=== PATIENT | female | born 1970 | race Caucasian/White ===

== ENCOUNTER → 2018-06-05 12:32 | Outpatient (CLI) | payer BC, SELFPAY ==
--- NOTE | 2018-06-05 12:37 | BI_ITS ---
MAMMOGRAPHY - BILATERAL SCREENING 3-D USAMA SYNTHESIS REASON FOR EXAM: Female, 47 years old. Bilateral Screening 3-D tomosynthesis PERTINENT HISTORY: No significant family history. TECHNIQUE: 2-D mammograms and 3-D Usama synthesis of the breast (s) were performed. CAD was performed. COMPARISON: None. FINDINGS: The breast composition is composed of scattered fibroglandular density. Scattered benign calcifications are seen. No dense spiculated masses or suspicious microcalcifications are identified. No architectural distortion is identified. There is no skin thickening or retraction. There has been no significant change since the prior study. BI/SCREENING MAMM (CAD), BILAT IMPRESSION: No mammographic signs of malignancy. Routine yearly mammograms recommended. ASSESSMENT CATEGORY: BIRADS Category 2: Benign. A letter regarding these results will be sent to the patient by the facility within 30 days. FOLLOW UP RECOMMENDATION: Yearly follow up mammogram recommended. (A) Approximately 10% of breast cancers are not detected by mammography. A normal mammogram should not delay biopsy of a clinically suspicious abnormality. Electronically Signed: Heath Ledezma MD at 8:35 EDT , Service support ,
[2018-06-12 11:30] LABS: HPV APTIMA, High Risk Negative (Negative)
== END ==
PROVIDERS: Family Provider Family Medicine; PCP Family Medicine; Visit Provider Nurse Practitioner Women's Health
DX: Z12.4 Encounter for screening for malignant neoplasm of cervix (principal); Z12.31 Encounter for screening mammogram for malignant neoplasm of breast
CPT/HCPCS: 77063; 77067; 88175; G0145

== ENCOUNTER 2018-08-17 10:51 | Day surgery (SDC) | payer BC, SELFPAY ==
--- NOTE | 2018-08-17 05:48 | PCM.HP.STD ---
Problem List (1) Abnormal uterine bleeding Status: Acute History of Present Illness Date of Admission: 08/17/18 The patient is a 47 year old F presents with a history of abnormal uterine bleeding. She has a history of a mirena IUD that expelled and therefore she wants to proceed with an ablation. Past Medical History Medical History: Medical History (Last Updated 06/16/18 @ 11:22 by Angy Sawyer) Menorrhagia with regular cycle N92.0 Depression F32.9 Dysthymic disorder F34.1 Goiter E04.9 Encounter for IUD insertion Onset Date: ~03/19/14 Z30.430 Encounter for IUD removal Onset Date: ~05/2015 Z30.432 Allergies Penicillins Allergy (Verified 08/10/18 10:37) Unknown Home Medications: Ambulatory Orders Medication Instructions Recorded Multivitamins,Therapeutic 1 tab PO DAILY 08/18/16 [Multivitamin] sertraline 50 mg tablet 50 mg PO QDAY 06/05/18 Surgical History: Surgical History (Last Updated 06/16/18 @ 11:21 by Angy Sawyer) Gallbladder & bile duct stone with obstruction Onset Date: ~08/03/13 K80.71 H/O dilation and curettage Onset Date: ~2003 Z98.890 H/O dilation and curettage Onset Date: ~2005 Z98.890 H/O knee surgery Onset Date: ~08/2015 Z98.890 Left Hx laparoscopic cholecystectomy Onset Date: ~08/03/13 Z90.49 with Cholangiography Smoking Status: Never smoker Tobacco Use: Non-smoker Alcohol: None Review of Systems Constitutional: Denies: Fever, Malaise Eyes: Denies: Blurred vision, Vision Change HEENT: Denies: Head Aches, Visual Changes Cardiovascular: Denies: Chest Pain, Palpitations Respiratory: Denies: Cough, Shortness of Breath, Wheezing Gastrointestinal: Denies: Abdominal Pain, Diarrhea, Nausea, Vomiting Genitourinary: Denies: Dysuria, Hematuria Musculoskeletal: Denies: Joint Pain, Muscle pain Skin: Denies: Lesions, Rash Neurological: Denies: Blurred vision, Focal weakness, Headaches Psychiatric: Denies: Anxiety, Depression Endocrine: Denies: Heat/ Cold Intolerance Hematologic/ Lymphatic: Denies: Easy Bruising, Easy Bleeding VTE Information - Inpt Only VTE Present on Admission: No - Physical Exam General: Alert, Oriented x3 HEENT: Atraumatic, Normocephalic Neck: Supple, Trachea Midline, Thyroid Normal Size and Texture Lungs: Normal air movement Cardiovascular: Regular rate Abdomen: Soft, Non Tender, Non-Distended Extremities: No edema Assessment/Plan All Active Problems (Last Updated 06/16/18 @ 11:22 by Angy Sawyer) Abnormal uterine bleeding (Acute) 47 yo with AUB plan d and c hysteroscopy orquidea ablation. discussed surgical risks including risks of anesthesia, infection, bleeding, injury to bowel, bladder or blood vessels, and patient wishes to proceed with surgery.
[2018-08-17 11:23] LABS: Internal QC Validated? YES +Cl - CLEAR BKGD; Pregnancy, Urine Negative Negative
[2018-08-17 11:32] LABS: Hemoglobin 14.4 g/dl (12.0-15.0); Mean Corp Hgb Conc 34.3 g/gl (32-36); Mean Corpuscular Hgb 30.8 pg (27.0-32.0); Mean Corpuscular Volume 89.9 fL (81-99); Mean Platelet Vol. 10.6 fl (6.2-12.0); Platelet Count 285 K/mm3 (150-450); RBC Distribution Width CV 12.4 % (11.6-14.6); RBC Distribution Width SD 40.4 fl (35.1-43.9); Red Blood Count 4.67 M/mm3 (4.2-5.4); White Blood Count 8.4 K/mm3 (4.4-11.0)
[2018-08-17 11:33] LABS: Scan Indicated on CBC? Y/N NO
[2018-08-17 11:49] VITALS: BP 132/90; PULSE 82; RESP 16; TEMP 37.3; O2SAT 97; BMI 35.1
--- NOTE | 2018-08-17 12:30 | ECC_PTH ---
PATIENT: RUDY MYERS LOC: [facility] [place] U#:[id number] AGE/SX: 47/F ROOM: RE08/17/[address]: Dr. America Figueroa MD : 1970 BED: DIS: 08/17/2018 SPEC #: [id number] RECD: 08/18/18 08:30 STATUS: JAYSON JONATHAN #: [id number] SARIAH: 08/17/18 12:[address]: America Figueroa DEPT: SURGICAL PATHOLOGY RECD BY: Glen Reyes ENTERED: 08/18/18 11:55 SP TYPE: ECC OTHR DR: Dr. Geoff Aquino MD Tissues: A - Endocervical B - Fallopian tube Procedures: Surgery Specimen Level II Surgery Specimen Level IV HEADER OPERATION: Dilation and curettage, Joy, bilateral salpingectomy PRE-OP DIAGNOSIS: Abnormal uterine bleeding, desires elective sterilization TISSUE SUBMITTED: A - Endometrial curettings, B - Bilateral fallopian tubes MICROSCOPIC DIAGNOSIS A. Endometrium, curettings: Secretory endometrium with mild disorder. Fragments of superficial endocervical tissue with mild chronic inflammation. B. Right and left fallopian tubes, bilateral salpingectomies: Two complete segments of fallopian tubes with benign paratubal cysts. AM:geri 08/21/18 COMMENT Case has been reviewed in consultation with Dr. Quiñones who concurs with the above diagnosis. IDC:CODY MICROSCOPIC DESCRIPTION Slides are reviewed. GROSS DESCRIPTION A - Received is one container labeled with the patient's name and designated endometrial curettings. The specimen consists of multiple fragments of hemorrhagic soft tissue that in aggregate measure 2.5 x 0.5 x 0.1 cm. The specimen is totally submitted in one cassette. B - Received is one container labeled with the patient's name and designated bilateral fallopian tubes. The specimen consists of bilateral fallopian tubes including fimbrial ends measuring 6.5 cm in length and 0.6 cm in diameter and 6 cm in length and 0.6 cm in diameter. Sections do not reveal any mass lesion. The fallopian tubes are not identified as right or left. Sections reveal unremarkable cut surfaces. Theatrical Performer sections are submitted in two cassettes with each cassette containing one fallopian tube. / CODY:geri 08/18/18 TC:3 CPT: 56221 x2, [id number]
--- NOTE | 2018-08-17 15:13 | PCM.OPRPT ---
Problem List (1) Abnormal uterine bleeding Status: Acute Report of Operation Date of Procedure: 08/17/18 Pre-Operative Diagnosis: aub sterilization Post-Operative Diagnosis: same Surgery/Procedure Performed:: d and c hysteroscopy joy ablation laparoscopic bilateral salpingectomy Description of Surgical Findings:: normal uterus tubes ovaries internet project manager: Blanca Puente Type of Anesthesia:: General Special Medications: none Specimen's removed: tubes emc Drains: none Estimated Blood Loss (mL): 25 Fluids Replaced: crystalloid Description of Procedure: Patient was taken in the operating room and was placed under general anesthesia was prepped and draped in normal sterile fashion in the dorsal lithotomy position. Bladder was drained of clear urine and SCDs were on preoperatively. Uterus was sounded and a uterine manipulator was placed after dilating. Attention was then paid to the abdominal portion of the procedure and the umbilicus was elevated with towel clamps and injected with Marcaine and after a 5 mm incision was made and the Veress needle was entered into the abdomen confirmed to be intra-abdominal with a low opening pressure of less than 5 mmHg. Abdomen was insufflated with CO2 gas and a 5 mm optical trocar was placed under direct visualization. A left lower quadrant 5 mm port and a 5 mm port suprapubically replaced under direct visualization. Uterus was well visualized and bilateral fallopian tubes identified and bilateral tubes were elevated and transecting across the mesosalpinx and the attachment to the uterine corpus bilaterally the tubes were removed without complication. Excellent hemostasis was noted. Fallopian tubes were removed through the lower port sites without complication. Liver and upper abdomen were visualized notably within normal limits and no other gross abnormalities were seen in the abdomen. All instruments removed from the abdomen after gas was desufflated. Port sites were closed with 3-0 Monocryl Steris. A weighted speculum was placed in the vagina and the anterior lip of the cervix was grasped with a single-tooth tenaculum Cervix was progressively dilated to allow passage of a 5 mm hysteroscope. The lining was fully visualized and noted to have no gross abnormalities. Uterine sounded to 9 cm. Curettage was performed and small to moderate amount of tissue was removed, sent to pathology. The Joy device was opened and the cavity length was found to be 6 cm. Device was inserted into the uterus and balloon inflated and device deployed. Integrity of the cavity was confirmed and a 2 minute treatment cycle was completed without complication. All instruments were removed from the vagina and excellent hemostasis was noted. Patient was awoken and taken to recovery in stable condition. Grafts/Implants Used: none - Complications none - Admit VTE Documentation VTE Present on Admission: No
--- NOTE | 2018-08-17 15:18 | DCINST_ITS ---
Discharge Diet: No Restrictions - Increase fluid intake for the next 48 hours. Discharge Activity: Return to Normal Activity, May Drive - when you are no longer taking narcotic pain medications., May Shower, May Take a Tub Bath - in 7 days Additional Activity Instructions:: Ambulate often the next week after surgery. Nothing in the vagina for 5 days. Call your doctor if your incision/area has: Continuous Slow Oozing, Sudden Increased Bleeding, Increased Pain/ Swelling, Increased Redness, Foul Smelling Discharge Call your doctor if you observe: Fever of 101 or Higher Allergies/Adverse Reactions: Allergies Penicillins Allergy (Verified 08/10/18 10:37) Unknown Medications to take at Discharge Multivitamins,Therapeutic [Multivitamin] 1 tab PO DAILY 08/18/16 sertraline 50 mg tablet 50 mg PO QDAY 06/05/18 Naproxen [Naprosyn] 250 - 500 mg PO Q8H PRN PRN #30 tablet 08/17/18 Oxycodone HCl/Acetaminophen [Percocet 5-325] 1 - 2 tablet PO Q4H PRN PRN 7 Days #15 tablet 08/17/18 The following prescriptions were given: Oxycodone HCl/Acetaminophen [Percocet 5-325] 1 - 2 tablet PO Q4H PRN PRN 7 Days #15 tablet PRN Reason: Pain Naproxen [Naprosyn] 250 - 500 mg PO Q8H PRN PRN #30 tablet PRN Reason: MILD PAIN Primary Care Physician: Geoff Aquino MD [Primary Care Provider] - Test Results: Test results from this visit will be discussed in further detail at your follow- up appointment, if applicable. Please Follow Up With: America Figueroa MD - [phone]
[2018-08-17] MEDS: Bupivacaine Mpf 0.5% 30 ML VIAL (15:40)
[2018-08-17 16:13] VITALS: BP 130/72; BP 132/90; PULSE 79; RESP 18; TEMP 36.6; O2SAT 93
[2018-08-17 16:15] VITALS: BP 123/74; BP 132/90; PULSE 77; RESP 18; O2SAT 99
[2018-08-17 16:30] VITALS: BP 121/66; BP 132/90; PULSE 71; RESP 18; O2SAT 97
[2018-08-17 16:47] VITALS: BP 118/85; BP 132/90; PULSE 79; RESP 18; TEMP 37.3; O2SAT 98
[2018-08-17 17:25] VITALS: BP 132/90
== END 2018-08-17 17:27 | disposition home or self-care (01) ==
LOC: SDC 10:52 → AC 10:53
PROVIDERS: Family Provider Family Medicine; PCP Family Medicine; Visit Provider Obstetrics & Gynecology
PROC: 0U5B8ZZ Destruction of Endometrium, Via Natural or Artificial Opening Endoscopic (ICD-10-PCS; CPT 58558; principal; 2018-08-17 12:15)
DX: Z30.2 Encounter for sterilization (principal); N93.8 Other specified abnormal uterine and vaginal bleeding; Z79.899 Other long term (current) drug therapy; F34.1 Dysthymic disorder; E04.9 Nontoxic goiter, unspecified; N83.8 Other noninflammatory disorders of ovary, fallopian tube and broad ligament
CPT/HCPCS: 58563; 58661; 81025; 85027; 86850; 86900; 88302; 88305; J7120; J2405

== ENCOUNTER → 2020-05-07 | Outpatient (CLI) | payer BC, SELFPAY ==
[2018-10-13 09:04] VITALS: BMI 37.1
--- NOTE | 2020-05-07 13:15 | BI_ITS ---
MAMMOGRAPHY - BILATERAL SCREENING 3-D TOMOSYNTHESIS REASON FOR EXAM: Female, 49 years old. Routine screening PERTINENT HISTORY: FAM HX PAT AUNT AGE 65 -- NO SX. TECHNIQUE: 2-D mammograms and 3-D Tomosynthesis of the breast (s) were performed. CAD was performed. COMPARISON: 06/05/2018 FINDINGS: The breast composition is composed of scattered fibroglandular density. Scattered benign calcifications are seen. No dense spiculated masses or suspicious microcalcifications are identified. No architectural distortion is identified. There is no skin thickening or retraction. In the medial aspect of the right breast, deep near the retroglandular fat is a 8mm nodule which was not seen on the previous study. Further evaluation of this area with about views and ultrasound is recommended Left breast shows no suspicious findings or significant interval change BI/SCREEN MAMM (CAD) W/USAMA BILAT IMPRESSION: Additional views and ultrasound of the medial aspect of the right breast recommended. ASSESSMENT CATEGORY: BIRADS Category 0: Incomplete. Need additional imaging evaluation as above. A letter regarding these results will be sent to the patient by the facility within 30 days. FOLLOW UP RECOMMENDATION: Additional imaging recommended as above. (E) Approximately 10% of breast cancers are not detected by mammography. A normal mammogram should not delay biopsy of a clinically suspicious abnormality. Electronically Signed: Heath Ledezma MD at 14:47 EDT , Service support ,
== END | disposition home or self-care (01) ==
LOC: OPBI 13:15
PROVIDERS: PCP Family Medicine; Referring Provider Nurse Practitioner Women's Health; Visit Provider Nurse Practitioner Women's Health
DX: Z12.31 Encounter for screening mammogram for malignant neoplasm of breast (principal)
CPT/HCPCS: 77063; 77067

== ENCOUNTER → 2020-05-15 09:28 | Outpatient (CLI) | payer BC, SELFPAY ==
[2020-05-07 14:36] VITALS: BMI 37.1
--- NOTE | 2020-05-15 09:29 | BI_ITS ---
MAMMOGRAPHY - BILATERAL DIAGNOSTIC REASON FOR EXAM: Female, 49 years old. Abnormal screening mammogram. PERTINENT HISTORY: Aunt with breast cancer. TECHNIQUE: Compression Spot Views of the Right Breast in the Mediolateral Oblique and Craniocaudal views were obtained. CAD: Full Field Digital Mammography with Computer Added Detection was performed. COMPARISON: Comparison is made with prior mammogram dated May 07, 2020 FINDINGS: Breast Composition: There are scattered areas of fibroglandular density. The previously seen 8 mm possible nodular density in the deep medial aspect of the right breast is not seen with certainty. Correlation with ultrasound is recommended. No other significant abnormalities are identified. BI/DIAG MAMM W/CAD, BILAT IMPRESSION: No definite nodule is seen on the compression spot views. Correlation with ultrasound is recommended for further evaluation. ASSESSMENT CATEGORY: BIRADS Category 0: Incomplete. Need additional imaging evaluation. A letter regarding these results will be sent to the patient by the facility within 30 days. Approximately 10% of breast cancers are not detected by mammography. A normal mammogram should not delay biopsy of a clinically suspicious abnormality. Electronically Signed: Donald Freedman, at 10:24 EDT , Service support ,
--- NOTE | 2020-05-15 09:29 | US_ITS ---
STUDY: ULTRASOUND BREAST - RIGHT REASON FOR EXAM: Female, 49 years old. Possible right breast nodule. TECHNIQUE: Axial and longitudinal images of the RIGHT breast were performed with a high resolution ultrasound transducer. # OF IMAGES: 55 COMPARISON: Comparison is made with prior mammogram dated May 15, 2020 and May 07, 2020. FINDINGS: RIGHT Breast: The medial half of the right breast was examined by ultrasound. No solid or cystic mass lesion is seen. There is a moderate degree of fibroglandular tissue. US/Breast Limited Unilateral IMPRESSION: No sonographic abnormality is seen. ASSESSMENT CATEGORY: BIRADS Category 1: Negative. A letter regarding these results will be sent to the patient by the facility within 30 days. Electronically Signed: Donald Freedman, at 10:55 EDT , Service support ,
== END ==
PROVIDERS: PCP Family Medicine; Referring Provider Nurse Practitioner Women's Health; Visit Provider Nurse Practitioner Women's Health
DX: R92.8 Other abnormal and inconclusive findings on diagnostic imaging of breast (principal)
CPT/HCPCS: 76642; 77066

== ENCOUNTER → 2021-05-28 15:36 | Outpatient (CLI) | payer BC, SELFPAY ==
[2021-05-12 13:25] VITALS: BMI 37.3
--- NOTE | 2021-05-28 15:38 | BI_ITS ---
MAMMOGRAPHY - BILATERAL SCREENING REASON FOR EXAM: Female, 50 years old. Routine annual screening examination. PERTINENT HISTORY: Aunt with breast cancer. TECHNIQUE: Digital bilateral breast usama (3D mammographic acquisition) in the CC and MLO projections. 2-D mediolateral oblique (MLO) and craniocaudad (CC) views of both breasts were obtained. CAD: Full Field Digital Mammography with Computer Added Detection was performed. COMPARISON: Comparison is made with prior study dated 05/07/2020 and 06/05/2020. FINDINGS: Breast Composition: There are scattered areas of fibroglandular density. There are no dominant masses or suspicious calcifications. Stable benign-appearing bilateral axillary lymph nodes. No other significant abnormalities are identified. There has been no significant change since the prior study. BI/SCRN MAMM (CAD)W/USAMA BILAT IMPRESSION: Stable bilateral screening mammogram. Yearly follow-up mammogram recommended. (A) ASSESSMENT CATEGORY: BIRADS Category 2: Benign. A letter regarding these results will be sent to the patient by the facility within 30 days. Approximately 10% of breast cancers are not detected by mammography. A normal mammogram should not delay biopsy of a clinically suspicious abnormality. [id number] Electronically Signed: Donald Freedman MD at 7:55 EDT , Service support ,
== END ==
PROVIDERS: PCP Family Medicine; Referring Provider Nurse Practitioner Women's Health; Visit Provider Nurse Practitioner Women's Health
DX: Z12.31 Encounter for screening mammogram for malignant neoplasm of breast (principal)
CPT/HCPCS: 77063; 77067

== ENCOUNTER → 2023-02-01 | Outpatient (CLI) | payer BC, SELFPAY ==
--- NOTE | 2023-02-01 12:03 | BI_ITS ---
MAMMOGRAPHY - BILATERAL SCREENING REASON FOR EXAM: Female, 52 years old. Routine annual screening examination. PERTINENT HISTORY: Aunt with breast cancer. TECHNIQUE: Digital bilateral breast usama (3D mammographic acquisition) in the CC and MLO projections. 2-D mediolateral oblique (MLO) and craniocaudad (CC) views of both breasts were obtained. CAD: Full Field Digital Mammography with Computer Added Detection was performed. COMPARISON: Comparison is made with prior study dated May 28, 2021 May 15, 2020. FINDINGS: Breast Composition: There are scattered areas of fibroglandular density. There are no dominant masses or suspicious calcifications. Stable asymmetry of breast tissue or more breast tissue is seen in the upper-outer quadrant of the right breast as compared to the left side. Stable small benign-appearing bilateral axillary lymph nodes. No other significant abnormalities are identified. There has been no significant change since the prior study. BI/SCRN MAMM (CAD)W/USAMA BILAT IMPRESSION: Stable bilateral screening mammogram. Yearly follow-up mammogram recommended. (A) ASSESSMENT CATEGORY: BIRADS Category 2: Benign. A letter regarding these results will be sent to the patient by the facility within 30 days. Approximately 10% of breast cancers are not detected by mammography. A normal mammogram should not delay biopsy of a clinically suspicious abnormality. [id number] Electronically Signed: Donald Freedman MD at 13:59 EDT ,
[2023-02-08 14:38] LABS: HPV APTIMA, High Risk Negative (Negative)
== END | disposition home or self-care (01) ==
PROVIDERS: PCP Family Medicine; Referring Provider Nurse Practitioner Women's Health; Visit Provider Nurse Practitioner Women's Health
DX: Z12.31 Encounter for screening mammogram for malignant neoplasm of breast (principal)
CPT/HCPCS: 77063; 77067; 87624; 88175; G0145

== ENCOUNTER → 2024-02-08 | Outpatient (CLI) | payer BC, SELFPAY ==
--- NOTE | 2024-02-08 12:51 | BI_ITS ---
MAMMOGRAPHY - BILATERAL SCREENING REASON FOR EXAM: Female, 53 years old. Routine annual screening examination. PERTINENT HISTORY: Aunt with breast cancer. TECHNIQUE: Digital bilateral breast usama (3D mammographic acquisition) in the CC and MLO projections. 2-D mediolateral oblique (MLO) and craniocaudad (CC) views of both breasts were obtained. CAD: Full Field Digital Mammography with Computer Added Detection was performed. COMPARISON: Comparison is made with prior examination dated February 01, 2023 and May 28, 2021. FINDINGS: Breast Composition: There are scattered areas of fibroglandular density. There are no dominant masses or suspicious calcifications. There is stable asymmetry of breast tissue or more breast tissue is seen in the upper-outer quadrant of the right breast as compared to the left side. Stable small benign-appearing bilateral axillary lymph nodes. No other significant abnormalities are identified. There has been no significant change since the prior study. BI/SCRN MAMM (CAD)W/USAMA BILAT IMPRESSION: Stable bilateral screening mammogram. Yearly follow-up mammogram recommended. (A) ASSESSMENT CATEGORY: BIRADS Category 2: Benign. A letter regarding these results will be sent to the patient by the facility within 30 days. Approximately 10% of breast cancers are not detected by mammography. A normal mammogram should not delay biopsy of a clinically suspicious abnormality. [id number] Electronically Signed: Donald Freedman MD at 14:17 EDT ,
== END | disposition home or self-care (01) ==
LOC: OPBI 12:51
PROVIDERS: PCP Family Medicine; Visit Provider Nurse Practitioner Women's Health
DX: Z12.31 Encounter for screening mammogram for malignant neoplasm of breast (principal)
CPT/HCPCS: 77063; 77067

== ENCOUNTER → 2025-04-23 | Outpatient (CLI) | payer BC, SELFPAY ==
--- NOTE | 2025-04-23 13:45 | BI_ITS ---
EXAM: SCRN MAMM (CAD)W/USAMA BILAT DATE: 04/23/2025 CLINICAL HISTORY: F, Age 54 y/o , SCREEN FOR BREAST CANCER Aunt with breast cancer. BREAST CANCER RISK ASSESSMENT: Not assessed. TECHNIQUE: Bilateral screening digital breast tomosynthesis with 2D and 3D images. Computer aided detection. COMPARISON: Prior exam(s) dated February 08, 2024.. FINDINGS: TISSUE DENSITY: The breast tissue is composed of scattered area of fibroglandular density. Bilateral Breast Mammographic Findings: No significant masses, calcifications or other abnormalities are identified. Stable benign-appearing bilateral axillary lymph nodes. Stable asymmetry of breast tissue were more breast tissue is seen upper- outer quadrant of the right breast as compared to the left side. No suspicious masses, areas of developing architectural distortion, or suspicious calcifications. There has been no significant interval change. BI/SCRN MAMM (CAD)W/USAMA BILAT IMPRESSION: OVERALL FINAL ASSESSMENT: BIRADS 2 BENIGN FINDING RECOMMENDATION: Routine annual follow-up in 1 Year A letter with findings and recommendations will be mailed to the patient. Reading Location: [place] [id number]
--- OUTSIDE RECORDS SUMMARY | 2025-04-23 23:39 | XMS RPT_ITS | CCD ---
Author Organization [place] [facility] Care Team Providers Care Engineer Technical Staff Name Role Phone Wood, Aleshia L Unavailable Unavailable Wood, Aleshia L Unavailable Unavailable Pepe Christopher Unavailable Unavailable Wood, Aleshia L Unavailable Unavailable PepeMaylin Unavailable Unavailable Wood, Aleshia L Unavailable Unavailable PepeMaylin matos Unavailable Unavailable Quincy TOOLING MANAGER, Emelia Connors Unavailable Wood, Aleshia Unavailable Unavailable Wood, Aleshia L Unavailable Unavailable Wood, Aleshia L Unavailable Unavailable Unavailable Unavailable Unavailable Maylin Pepe MD Primary Care Provider Maylin Pepe MD Primary Care Provider MAYLIN PEPE Primary Care Unavaila ble AUGIE MORGAN Attending Unava ilable ALALAALEC Frazier Attending Unavailable AUGIE MORGAN Referring Unava ilable AKUSABRAN MCGRAWEZONA Admitting Unavail able MAYLIN PEPE Primary Care Unavaila ble ANDREIA CLARKE Consulting Unavailable Dr. Geoff Pepe Primary Care Provider [phone] Dr. Geoff Pepe Referring Provider [phone] Cathy TOOLING MANAGER, TOOLING MANAGER-C Emelia Attending Provider [phone] Maylin Pepe MD Primary Care Provider MAYLIN PEPE Primary Care Unavaila ble MAYLIN PEPE Primary Care Unavaila ble SALO CHOUDHURY Referring Unavailable Wood ROOF TRUSS MACHINE TENDER-PSYCHOMETRIC EXAMINER, Aleshia L Primary Care Provider ALESHIA MOYER L Attending Unavailable WOOD, ALESHIA L Referring Unavailable WOOD, ALESHIA L Primary Care Unavailable WOOD, ALESHIA L Attending Unavailable WOOD, ALESHIA L Referring Unavailable WOOD, ALESHIA L Primary Care Unavailable Cathy TOOLING MANAGER, Emelia Attending Unavailable Geoff Pepe Referring Unavailable Geoff Pepe Primary Care Unavailable Geoff Pepe Primary Care Unavailable Cathy TOOLING MANAGER, Emelia Referring Unavailable Cathy TOOLING MANAGER, Emelia Attending Unavailable Miles GONZÁLES, Dr. Tellez Primary Care Provider [phone] Cathy TOOLING MANAGER-Emelia Oliver Attending Provider [phone] Cathy TOOLING MANAGER-CEmelia Referring Provider [phone] Miles GONZÁLES, Dr. Tellez Referring Provider Allergies Allergy Classification Reported Allergen(s) Allergy Type Date of Onset Reaction(s) Facility Angiotensin Converting Enzyme (BEBETO) Inhibitors (3 sources) Lisinopril; Translations: [Lisinopril TABS] Drug Allergy [facility] [place]: Penicillins (antibiotic) (3 sources) Penicillins; Translations: [Penicillins] Drug Allergy [facility] [place]: (1 source) penicillin; Translations: [penicillin] Drug Allergy [facility] Repository (1 source) Penicillin V Drug Allergy [facility] (9 sources) Penicillins; Translations: [Penicillins] Allergy to drug (finding) 4 [facility] Repository (5 sources) Lisinopril; Translations: [Lisinopril TABS] Drug Allergy 3 Cough [facility] (5 sources) Penicillins Drug Allergy 4 Unknown, Swelling [facility] Work Phone: (2 sources) Penicillins Allergy to substance 3 [facility] (1 source) Lisinopril; Translations: [LISINOPRIL] Drug Allergy 3 [facility] 3 Repository (1 source) Penicillins Drug allergy (disorder) 3 [facility] Repository Medications Current Medications Medication Drug Class(es) Dates Sig (Normalized) Sig (Original) [id number] 200 actuat albuterol 0.09 mg/actuat metered dose inhaler (9 sources) beta2-Adrenergic Agonist Start: 03-26-2021 take 2 puff(s) by inhalation every four hours as needed for wheezing albuterol HFA (PROVENTIL HFA, VENTOLIN HFA) 90 mcg/actuation inhaler Indications: Viral bronchitis Inhale 2 Puffs as instructed every 4 hours as needed for Wheezing/Shortnes s of Breath. 1 Each 03/26/2021 Active Start: 03-26-2021 End: 05-31-2022 Albuterol Sulfate HFA 108 (9 0 Base) MCG/ACT Inhalation Aerosol Solution Quantity: 18 Refills: 0 Ordered: 26-Mar-2021 DO Start : 26-Mar-2021 End : 31-May-2022 Complete Start: 03-26-2021 Albuterol Sulf ate HFA 108 (90 Base) MCG/ACT Inhalation Aerosol Solution Quantity: 18 Refills: 0 Ordered: 26-Mar-2021 DO Start : 26-Mar-2021 Active Comment on above: Inhale 2 Puffs as in structed every 4 hours as needed for Wheezing/Shortness of Breath. B Complex Vitamins capsule (3 sources) take 1 capsule by mouth once daily B Complex Vitamins capsule Indications: Menorrhagia with regular cycle Take 1 capsule by mouth once daily. Active take 1 capsule by mouth once gracia ly B Complex Vitamins capsule Indications: Menorrhagia with regular cycle Take 1 capsule by mouth once daily. 0 Active Comment on above: Take 1 capsule by [facility] once daily. doxycycline monohydrate 100 mg oral tablet (1 source) Tetracycline-class Drug Start: 10-22-20 24 End: 10-29-20 24 take 1 tablet by mouth twice daily doxycycline monohydrate 100 mg tablet Take 1 tablet by mouth two times a day for 7 days. 14 tablet 10/22/2024 10/29/2024 Active Ethinyl Estradiol / Levonorgestrel (3 sources) Progestin, Estrogen, Progestin-containing Intrauterine Device Start: 06-14-20 17 take 1 tablet by mouth once daily Levonorgestrel-Ethiny l Estrad (AVIANE) 0.1mg - 20mcg per tablet Indications: Menorrhagia with regular cycle , General counseling for prescription of oral contraceptives Take 1 tablet by mouth once daily. 3 Package 3 06/14/2017 Active Comment on above: Take 1 tablet by andrew th once daily. GLUC GAVIRIA/CHONDRO GAVIRIA A/VIT C/MN (GLUCOSAMINE CHONDROITIN SMCONC ORAL) (3 sources) GLUC GAVIRIA/CHONDRO GAVIRIA A/VIT C/MN (GLUCOSAMINE CHONDROITIN SMCONC ORAL) Indications: Menorrhagia with regular cycle Take by mouth. Active GLUC GAVIRIA/CHONDRO GAVIRIA A/VIT C/MN (GLUCOSAMINE CHONDROITIN SMCONC ORAL) Indications: Menorrhagia with regular cycle Take by mouth. 0 Active Comment on above: Take by mouth. hydroCHLOROthiazide 12.5 mg / losartan potassium 50 mg oral tablet (13 sources) Thiazide Diuretic, Angiotensin 2 Receptor Oksana Start: 08-09-2022 losartan-hydroCHL OROthiazide (HYZAAR) 50-12.5 mg per tablet 08/09/2022 Active Start: 05-12-2021 take 1 tablet by andrew th once daily Losartan-Hydrochlorothiazide Active 1 TA BLET PO DAILY May 12, 2021 12:00am Start: 04-23-2021 End: 06-11-2025 take 1 tablet by mouth once daily losartan-hydrochlorothiazide (Hyzaar) 50-12.5 mg tablet Indications: Benign hypertension Take 1 tablet by mouth once daily. 90 tablet 3 06/11/2024 06/11/2025 Active lisinopril 10 mg oral tablet (4 sources) Angiotensin Converting Enzyme Inhibitor Start: 03-12-2021 End: 04-23-2021 take 1 tablet by mouth once daily lisinopril (ZESTRIL, PRINIVIL) 10 mg tablet Take 10 mg by mouth once daily. 03/12/2021 Active Comment on above: Take 10 mg by mouth once daily. Magnesium (3 sources) Magnesium 200 mg tab Indications: Menorrhagia with regular cycle Take by mouth. Active Magnesium 200 mg tab Indications: Menorrhagia with regular cycle Take by mouth. 0 Active Comment on above: Take by mouth. meloxicam 15 mg oral tablet (13 sources) Nonsteroidal Anti-inflammatory Drug Start: End: take 1 tablet by mouth once daily Meloxicam (Mobic) 15 mg tablet Active 15 mg PO DAILY November 24, 2020 1:00am Comment on above: Take 15 mg by mouth once daily. Xtryrins-Cyt-Kls C-Herb No.124 (Airborne Immune Support) 250-8.875 mg tablet,chewable (1 source) Start: Vdcsojgc-Icv-Cmn C-Herb No.124 (Airborne Immune Support) 250-8.875 mg tablet,chewable Active {tbl} PO April 23, 2025 12:00am multivitamin tablet (3 sources) take 1 tablet by mouth once daily multivitamin tablet Indications: Menorrhagia with regular cycle Take 1 tablet by mouth once daily. Active take 1 tablet by mouth once ariel y multivitamin tablet Indications: Menorrhagia with regular cycle Take 1 tablet by mouth once daily. 0 Active Comment on above: Take 1 tablet by andrew th once daily. Multivitamin With Folic Acid (1 source) Start: 6 take 1 tablet by mouth once daily Multivitamin With Folic Acid Active 1 TABLET PO DAILY August 18, 2016 12:00am Multivitamin With Folic Acid 1 TABLET tablet (1 source) Start: 6 take 1 tablet by mouth once daily Multivitamin With Folic Acid 1 TABLET tablet Active 1 {tbl} PO DAILY August 18, 2016 12:00am pantoprazole 20 mg delayed release oral tablet (4 sources) Proton Pump Inhibitor Start: End: 6 take 1 tablet by mouth once daily before mealtime pantoprazole (Protonix) 20 mg EC tablet Indications: Nausea Take 1 tablet (20 mg) by mouth once daily in the morning. Take before meals. Do not crush, chew, or split. 30 tablet 12/13/2024 12/13/2025 Active Start: 01-06-2024 End: 02-06-2024 take 1 tablet by mouth once daily pantoprazole (PROTONIX) 40 MG tablet Take 1 (one) tablet (40 mg total) by mouth daily Start: 01/07/24. 30 tablet 0 01/07/2024 02/06/2024 Active potassium chloride 10 meq extended release oral capsule (14 sources) Start: 05-04-2021 End: 06-11-2025 take 1 capsule by mouth once daily Potassium Chloride 10 mEq capsule, extended release Active 10 meq PO DAILY May 12, 2021 12:00am sertraline 50 mg oral tablet (17 sources) Serotonin Reuptake Inhibitor Start: 06-11-2024 End: 06-11-2025 take 1.5 tablets by mouth once daily sertraline (Zoloft) 50 mg tablet Indications: Anxiety Take 1.5 tablets (75 mg) by mouth once daily. 135 tablet 3 06/11/2024 06/11/2025 Active Start: 01-05-2024 End: 01-06-2024 take 75 mg by mouth once daily 75 mg, Oral, Nightly, F irst dose on Veronica 01/05/24 at 2100 Start: 06-05-2018 sertraline (ZO LOFT) 50 mg tablet 75 mg. 06/05/2018 Active Start: 06-05-2018 take 1 tablet by andrew th once daily Sertraline (Zoloft) 50 mg tablet Active 50 mg PO daily June 05, 2018 12:00am sertraline (ZOLO FT) 50 MG tablet Take 1.5 (one and a half) tablets (75 mg total) by mouth nightly . 0 Active Comment on above: 75 mg. Completed/Discontinued Medications Medication Drug Class(es) Dates Sig (Normalized) Sig (Original) acetaminophen 325 mg oral tablet (1 source) Start: 01-05-2024 End: 01-06-2024 take 1 tablet by mouth every four hours as needed 650 mg, Oral, Every 4 hours PRN, fever 100.4 F or greater, Starting on Veronica 01/05/24 at 1916 acetaminophen 325 mg / oxyCODONE hydrochloride 5 mg oral tablet (4 sources) Opioid Agonist Start: 08-17-2018 End: 08-24-2018 Oxycodone-Acetamino phen 1 TABLET tablet Discontinued 1 - 2 {tbl} PO EVERY 4 HOURS NEEDED as needed for Pain 28 05August 17, 2018 12:00am August 23, 2018 12:00am August 24, 2018 12:13am Start: 08-17-2018 End: 08-24-2018 take 1 tablet by mouth every four hours as needed Oxycodone-Acetaminophen Discontinued 1 - 2 TABLET PO EVERY 4 HOURS NEEDED 28 05August 17, 2018 12:00am August 24, 2018 12:13am Start: 08-25-2016 End: 06-05-2018 Oxycodone-Acetaminophen 1 TA BLET tablet Discontinued 1 - 2 {tbl} PO EVERY 6 HOURS NEEDED as needed for Pain August 25, 2016 12:00am June 05, 2018 1:19pm Start: 08-25-2016 End: 06-05-2018 take 1 tablet by mouth every six hours as needed Oxycodone-Acetaminophen Discontinued 1 - 2 TABLET PO EVERY 6 HOURS NEEDED August 25, 2016 12:00am June 05, 2018 1:19pm aluminum hydroxide 40 mg/ml / magnesium hydroxide 40 mg/ml / simethicone 4 mg/ml oral suspension (1 source) Start: 01-05-2024 End: 01-06-2024 take 30 mL by mouth every four hours as needed for gastroesophageal reflux disease 30 mL, Oral, Every 4 hours PRN, indigestion, heartburn, Starting on Tue01/05/24 at 1916 1 ml atropine sulfate 1 mg/ml injection (1 source) Anticholinergic, Cholinergic Muscarinic Antagonist Start: 01-06-2024 End: 01-06-2024 atropine injection 1 mg iopamidoL (ISOVUE-370) 370 mg iodine /mL (76 %) injection 98 mL (1 source) Start: 01-06-2024 End: 01-06-2024 iopamidoL (ISOVUE-370) 370 mg iodine /mL (76 %) injection 98 mL losartan potassium 50 mg oral tablet (3 sources) Angiotensin 2 Receptor Oksana Start: 01-05-2024 End: 01-06-2024 take 50 mg by mouth once daily 50 mg, Oral, Daily, First dose on Tue01/05/24 at 2100 methylPREDNISolone 4 mg oral tablet (2 sources) Corticosteroid Start: 11-11-2020 End: 11-24-2020 take 1 tablet by mouth once Methylprednisolone (Medrol (Devyn)) 4 mg tablets,dose pack Discontinued 0 PO per package directions November 11, 2020 1:00am November 24, 2020 10:35am PO PER PKG DIR metoprolol tartrate 50 mg oral tablet (2 sources) beta-Adrenergic Oksana Start: 01-06-2024 End: 01-06-2024 metoprolol tartrate (LOPRESSOR) tablet 50-100 mg Start: 01-06-2024 End: 01-06-2024 metoprolol (LOPRESSOR) injec tion 10 mg MULTIPLE VITAMINS-MINERALS (1 source) Start: 07-01-2016 MULTIVITAMIN ADULT TABS MULTIPLE VITAMINS-MINERALS [id number] Dariana Ho naproxen 250 mg oral tablet (3 sources) Nonsteroidal Anti-inflammatory Drug Start: 08-17-2018 End: 05-07-2020 take 250-500 mg by mouth every eight hours as needed for pain Naproxen 250 MG tablet Discontinued 250 - 500 mg PO EVERY 8 HOURS NEEDED as needed for MILD PAIN August 17, 2018 12:00am May 07, 2020 2:29pm Start: 09-05-2017 take 1 tablet by andrew th twice daily as needed NAPROXEN 500 MG TABS One tablet by mouth twice daily prn NAPROXEN [id number] Emelia Morgan NP nitroglycerin 0.4 mg sublingual tablet (2 sources) Nitrate Vasodilator Start: 01-05-2024 End: 01-06-2024 nitroGLYCERIN (NITROSTAT) SL tablet 0.4 mg perflutren lipid microspheres (DEFINITY) 0.143 mg/mL solution 0-10 mL of mixture (1 source) Start: 01-05-2024 End: 01-06-2024 perflutren lipid microspheres (DEFINITY) 0.143 mg/mL solution 0-10 mL of mixture 1000 ml sodium chloride 9 mg/ml injection (1 source) Start: 01-06-2024 End: 01-06-2024 sodium chloride 0.9% (NS) Problems Active Problems Problem Classification Problem Date Documented Date Episodic/Chronic Anxiety disorders (13 sources) Anxiety; Translations: [Anxiety state, unspecified] Onset: 03-02-2023 12-13-2024 Chronic Essential hypertension (13 sources) Benign hypertension; Translations: [Benign essential hypertension] Onset: 03-02-2023 12-13-2024 Chronic Fever of unknown origin (3 sources) Fever; Translations: [Fever, unspecified] Onset: 10-22-2024 10-22-2024 Episodic Immunizations and screening for infectious disease (10 sources) Patient encounter status; Translations: [Other specified vaccination] 12-13-2024 Episodic Menstrual disorders (5 sources) Menorrhagia; Translations: [Excessive and frequent menstruation with regular cycle] Onset: 01-24-2014 Resolved: 04-04-2017 04-04-2017 Chronic Nausea and vomiting (3 sources) Nausea; Translations: [Nausea] Onset: 12-13-2024 12-13-2024 Episodic Nonspecific chest pain (6 sources) Chest pain; Translations: [Chest pain, unspecified] Onset: 01-05-2024 01-05-2024 Episodic Osteoarthritis (1 source) Osteoarthritis of knee; Translations: [Osteoarthritis of knee, unspecified] Onset: 07-09-2016 07-09-2016 Chronic Other lower respiratory disease (2 sources) Cough; Translations: [Acute cough] 10-22-2024 Episodic Other nervous system disorders (2 sources) Other chronic pain; Translations: [Other chronic pain] Onset: 03-02-2023 Chronic Other nutritional; endocrine; and metabolic disorders (2 sources) Severe obesity; Translations: [Morbid obesity] Chronic Other screening for suspected conditions (not mental disorders or infectious disease) (5 sources) Encounter for screening for lipoid disorders; Translations: [Encounter for screening for diabetes mellitus] Onset: 06-11-2024 Episodic Other upper respiratory infections (1 source) Sore throat symptom; Translations: [Acute pharyngitis, unspecified] Episodic Pneumonia (except that caused by tuberculosis or sexually transmitted disease) (1 source) Pneumonia; Translations: [Pneumonia, unspecified organism] 10-22-2024 Episodic Residual codes; unclassified (8 sources) Past history of procedure; Translations: [Other specified personal history presenting hazards to health] Episodic Comment on above: 10/2018; Thyroid disorders (10 sources) Hypothyroidism; Translations: [Unspecified acquired hypothyroidism] Onset: 03-02-2023 12-13-2024 Chronic Unclassified (1 source) Postoperative physical examination; Translations: [Encounter for other specified surgical aftercare] Onset: 09-07-2016 09-07-2016 Unclassified (1 source) Acute cough; Translations: [Acute cough] Onset: 10-22-2024 Past or Other Problems Problem Classification Problem Date Documented Da te Episodic/Chronic Fetopelvic disproportion; obstruction (2 sources) Interlocked twins; 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] Onset: 04-17-2004 Resolved: 12-31-2005 05-24-2024 Episodic Fluid and electrolyte disorders (2 sources) Hypokalemia; Translations: [Hypokalemia] Onset: 06-11-2024 Episodic Joint disorders and dislocations; trauma-related (2 sources) Acute meniscal tear, medial; Translations: [Other tear of lateral meniscus, current injury, left knee, initial encounter] Onset: 07-01-2016 07-09-2016 Episodic Other non-traumatic joint disorders (1 source) Knee pain; Translations: [Pain in left knee] Onset: 07-01-2016 07-01-2016 Episodic Other non-traumatic joint disorders (10 sources) Pain in right knee; Translations: [Chronic pain of both knees] Onset: 03-02-2023 03-02-2023 Episodic Other non-traumatic joint disorders (2 sources) Pain in left knee; Translations: [Pain in left knee] Onset: 03-02-2023 Episodic Other and delivery including normal (4 sources) Normal ; Translations: [Encounter for supervision of other normal , unspecified trimester] Onset: 12-03-2005 Resolved: 05-13-2006 05-24-2024 Episodic Unclassified (2 sources) orquidea ablation 06-12-2022 Unclassified (1 source) Onset: 12-13-2024 12-13-2024 Results Test Name Value Interpretation Reference Range Facility CBC (INCLUDES DIFF/PLT)on ABSOLUTE BAND NEUTROPHILS Normal [facility] Comment on above: Performed By: #### 7 600, [id number], [id number] #### [facility] of [address], [address] [place] [address] Rating Clerk: Oracio Hurley MD ABSOLUTE BASOPHILS Normal [facility] Comment on above: Performed By: #### 7 600, [id number], [id number] #### [facility] of [address], [address] [place] [address] Rating Clerk: Oracio Hurley MD ABSOLUTE BLASTS Normal [facility] Comment on above: Performed By: #### 7 600, [id number], 2187 #### [facility] of [address], [address] [place] [address] Rating Clerk: Oracio Hurley MD ABSOLUTE EOSINOPHILS Normal [facility] Comment on above: Performed By: #### 7 600, [id number], 7599 #### [facility] of [address], [address] [place] [address] Rating Clerk: Oracio Hurley MD ABSOLUTE LYMPHOCYTES Normal [facility] Comment on above: Performed By: #### 7 600, [id number], [id number] #### [facility] of [facility] [address], [address] [place] [address] Rating Clerk: Oracio Hurley MD ABSOLUTE METAMYELOCYTES Normal [facility] Comment on above: Performed By: #### 7 600, 24154, 6399 #### [facility] of [facility] [address], [address] [place] [address] Rating Clerk: Oracio Hurley MD ABSOLUTE MONOCYTES Normal [facility] Comment on above: Performed By: #### 7 600, [id number], [id number] #### [facility] of [place] [address] , [address] [place] [address] Rating Clerk: Oracio Hurley MD ABSOLUTE MYELOCYTES Normal [facility] Comment on above: Performed By: #### 7 600, 90501, 6399 #### [facility] of [place] [address] , [address] [place] [address] Rating Clerk: Oracio Hurley MD ABSOLUTE NEUTROPHILS Normal [facility] Comment on above: Performed By: #### 7 600, 11386, 6399 #### [facility] of [place] [address] , [address] [place] [address] Rating Clerk: Oracio Hurley MD ABSOLUTE NUCLEATED RBC Normal [facility] Comment on above: Performed By: #### 7 600, [id number], 6399 #### [facility] of [place] [address] , [address] [place] [address] Rating Clerk: Oracio Hurley MD ABSOLUTE PROMYELOCYTES Normal [facility] Comment on above: Performed By: #### 7 600, 24753, 6399 #### [facility] of [facility] [address], [address] [place] [address] Rating Clerk: Oracio Hurley MD BAND NEUTROPHILS Normal [facility] Comment on above: Performed By: #### 7 600, 80981, 6399 #### [facility] of [facility] [address], [address] [place] [address] Rating Clerk: Oracio Hurley MD BASOPHILS Normal [facility] Comment on above: Performed By: #### 7 600, [id number], [id number] #### [facility] of [facility] [address], [address] [place] [address] Rating Clerk: Oracio Hurley MD [facility] Normal [facility] Comment on above: Performed By: #### 7 600, 39258, 6399 #### [facility] of [facility] [address], [address] [place] [address] Rating Clerk: Oracio Hurley MD COMMENT(S) Normal [facility] Comment on above: Performed By: #### 7 600, [id number], [id number] #### [facility] of [facility] [address], [address] [place] [address] Rating Clerk: Oracio Hurley MD [facility] Normal [facility] Comment on above: Performed By: #### 7 600, 53910, [id number] #### [facility] [address], [address] [place] [address] Rating Clerk: Oracio Hurley MD [facility] Normal [facility] Comment on above: Performed By: #### 7 600, 42037, [id number] #### [facility] [address], [address] [place] [address] Rating Clerk: Oracio Hurley MD [facility] Normal [facility] Comment on above: Performed By: #### 7 600, 36088, [id number] #### [facility] [address], [address] [place] [address] Rating Clerk: Oracio Hurley MD [facility] Normal [facility] Comment on above: Performed By: #### 7 600, 75684, [id number] #### [facility] [address], [address] [place] [address] Rating Clerk: Oracio Hurley MD [facility] Normal [facility] Comment on above: Performed By: #### 7 600, [id number], [id number] #### [facility] [address], [address] [place] [address] Rating Clerk: Oracio Hurley MD [facility] Normal [facility] Comment on above: Performed By: #### 7 600, [id number], 6399 #### [facility] [address], [address] [place] [address] Rating Clerk: Oracio Hurley MD MCV Normal [facility] Comment on above: Performed By: #### 7 600, [id number], 6399 #### [facility] of [facility] [address], [address] [place] [address] Rating Clerk: Oracio Hurley MD METAMYELOCYTES Normal [facility] Comment on above: Performed By: #### 7 600, 67449, 6399 #### [facility] of [place] [address] , [address] [place] [address] Rating Clerk: Oracio Hurley MD MONOCYTES Normal [facility] Comment on above: Performed By: #### 7 600, 50863, 6399 #### [facility] of [place] [address], [address] [place] [address] Rating Clerk: Oracio Hurley MD MPV Normal [facility] Comment on above: Performed By: #### 7 600, 54696, 6399 #### [facility] of [place] [address] , [address] [place] [address] Rating Clerk: Oracio Hurley MD MYELOCYTES Normal [facility] Comment on above: Performed By: #### 7 600, 42075, 6399 #### [facility] of [facility] [address], [address] [place] [address] Rating Clerk: Oracio Hurley MD NEUTROPHILS Normal [facility] Comment on above: Performed By: #### 7 600, 56069, 6399 #### [facility] [address], [address] [place] [address] Rating Clerk: Oracio Hurley MD NUCLEATED RBC Normal [facility] Comment on above: Performed By: #### 7 600, 00362, [id number] #### [facility] of [facility] [address], [address] [place] [address] Rating Clerk: Oracio Hurley MD PLATELET COUNT Normal [facility] Comment on above: Performed By: #### 7 600, 74344, 6399 #### [facility] of [address], [address] [place] [address] Rating Clerk: Oracio Hurley MD PROMYELOCYTES Normal [facility] Comment on above: Performed By: #### 7 600, 89282, 6399 #### [facility] of [address], [address] [place] [address] Rating Clerk: Oracio Hurley MD RDW Normal [facility] Comment on above: Performed By: #### 7 600, 46705, 6399 #### [facility] of [address], [address] [place] [address] Rating Clerk: Oracio Hurley MD REACTIVE LYMPHOCYTES Normal [facility] Comment on above: Performed By: #### 7 600, 31504, 6399 #### [facility] of [address], [address] [place] [address] Rating Clerk: Oracio Hurley MD RED BLOOD CELL COUNT Normal [facility] Comment on above: Performed By: #### 7 600, 93106, 6399 #### [facility] of [address], [address] [place] [address] Rating Clerk: Oracio Hurley MD WHITE BLOOD CELL COUNT Normal [facility] Comment on above: Performed By: #### 7 600, 69743, 6399 #### [facility] of [address], [address] [place] [address] Rating Clerk: Oracio Hurley MD COMPREHENSIVE METABOLIC PANE L W/ANION GAPon 12-27-2024 Albumin [Mass/Vol] 4.7 g/dL Normal 3.6-5.1 [facility] Comment on above: Performed By: #### 7 600, 79724, 6399 #### [facility] of [place] [address] , [address] [place] [address] Rating Clerk: Oracio Hurley MD ALP [Catalytic activity/Vol] 76 U/L Normal 37-153 [facility] Comment on above: Performed By: #### 7 600, 36329, 6399 #### [facility] of [address], [address] [place] [address] Rating Clerk: Oracio Hurley MD ALT [Catalytic activity/Vol] 37 U/L High 6-29 [facility] Comment on above: Performed By: #### 7 600, 85137, 6399 #### [facility] of [address], [address] [place] [address] Rating Clerk: Oracio Hurley MD AST [Catalytic activity/Vol] 25 U/L Normal 10-35 [facility] Comment on above: Performed By: #### 7 600, 03562, 6399 #### [facility] of [address], [address] [place] [address] Rating Clerk: Oracio Hurley MD Bilirubin [Mass/Vol] 0.5 mg/dL Normal 0.2-1.2 [facility] Comment on above: Performed By: #### 7 600, 69623, 6399 #### [facility] of [address], [address] [place] [address] Rating Clerk: Oracio Hurley MD Calcium [Mass/Vol] 10.0 mg/dL Normal 8.6-10.4 [facility] Comment on above: Performed By: #### 7 600, 54633, 6399 #### [facility] of [address], [address] [place] [address] Rating Clerk: Oracio Hurley MD Chloride [Moles/Vol] 102 mmol/L Normal 98-110 [facility] Comment on above: Performed By: #### 7 600, 06293, 6399 #### [facility] of [address], [address] [place] [address] Rating Clerk: Oracio Hurley MD CO2 [Moles/Vol] 25 mmol/L Normal 20-32 [facility] Comment on above: Performed By: #### 7 600, 26982, 6399 #### [facility] of [place] [address] Rating Clerk: Oracio Hurley MD Creatinine [Mass/Vol] 0.67 mg/dL Normal 0.50-1.03 [facility] Comment on above: Performed By: #### 7 600, 88002, 7999 #### [facility] of [address], [address] [place] [address] Rating Clerk: Oracio Hurley MD ELECTROLYTE BALANCE 10 mmol/L (calc) Normal 7-17 [facility] Comment on above: Performed By: #### 7 600, 54991, 6399 #### [facility] of [address], [address] [place] [address] Rating Clerk: Oracio Hurley MD GFR/1.73 sq M.predicted among non-blacks MDRD (S/P/Bld) [Vol rate/Area] 105 mL/min/{1.73_m2} Normal > OR = 60 [facility] Comment on above: Performed By: #### 7 600, 68076, 4399 #### [facility] of [address], [address] [place] [address] Rating Clerk: Oracio Hurley MD Glucose [Mass/Vol] 93 mg/dL Normal 65-99 [facility] Comment on above: Result Comment: Fasting reference interval Performed By: #### 7 600, 00564, 9099 #### [facility] of [address], [address] [place] [address] Rating Clerk: Oracio Hurley MD Potassium [Moles/Vol] 4.0 mmol/L Normal 3.5-5.3 [facility] Comment on above: Performed By: #### 7 600, 96325, 5899 #### [facility] of [address], [address] [place] [address] Rating Clerk: Oracio Hurley MD Protein [Mass/Vol] 8.1 g/dL Normal 6.1-8.1 [facility] Comment on above: Performed By: #### 7 600, 03951, 5499 #### [facility] of [address], [address] [place] [address] Rating Clerk: Oracio Hurley MD Sodium [Moles/Vol] 137 mmol/L Normal 135-146 [facility] Comment on above: Performed By: #### 7 600, 15377, 6399 #### [facility] [address], [address] [place] [address] Rating Clerk: Oracio Hurley MD Urea nitrogen [Mass/Vol] 20 mg/dL Normal 7-25 [facility] Comment on above: Performed By: #### 7 600, 44383, 6399 #### [facility] [address], [address] [place] [address] Rating Clerk: Oracio Hurley MD LIPID PANEL, [facility] [place] 12-15 Cholesterol [Mass/Vol] 179 mg/dL Normal <200 [facility] Comment on above: Order Comment: FASTI NG:YES FASTING: YES Performed By: #### 7 600, 82399, 4399 #### [facility] [address], [address] [place] [address] Rating Clerk: Oracio Hurley MD Cholesterol in HDL [Mass/Vol] 53 mg/dL Normal > OR = 50 [facility] Comment on above: Order Comment: FASTI NG:YES FASTING: YES Performed By: #### 7 600, 82842, 6399 #### [facility] [address], [address] [place] [address] Rating Clerk: Oracio Hurley MD Cholesterol in LDL [Mass/Vol] 97 mg/dL Normal [facility] Comment on above: Order Comment: FASTI NG:YES FASTING: YES Result Comment: Refe rence range: <100 Desirable range <100 mg/dL for primary prevention; <70 mg/dL for patients with CHD or diabetic patients with > or = 2 CHD risk factors. LDL-C is now calculated using the Guillermo calculation, which is a validated novel method providing better accuracy than the Friedewald equation in the estimation of LDL-C. Eladio AYALA et al. CLARA. 2013;310(19): 3231-4662 (http://education.Moe Delo.Crowd Play/faq/CEY083) Performed By: #### 7 600, 64331, 9739 #### [facility] [address], [address] [place] [address] Rating Clerk: Oracio Hurley MD Cholesterol.total/ Cholesterol in HDL [Mass ratio] 3.4 {ratio} Normal <5.0 [facility] Comment on above: Order Comment: FASTI NG:YES FASTING: YES Performed By: #### 7 600, 42684, 7464 #### [facility] [address], [address] [place] [address] Rating Clerk: Oracio Hurley MD NON HDL CHOLESTEROL 126 mg/dL (calc) Normal <130 [facility] Comment on above: Order Comment: FASTI NG:YES FASTING: YES Result Comment: For patients with diabetes plus 1 major ASCVD risk factor, treating to a non-HDL-C goal of <100 mg/dL (LDL-C of <70 mg/dL) is considered a therapeutic option. Performed By: #### 7 600, 79329, 5399 #### [facility] [address], [address] [place] [address] Rating Clerk: Oracio Hurley MD Triglyceride [Mass/Vol] 202 mg/dL High <150 [facility] Comment on above: Order Comment: FASTI NG:YES FASTING: YES Result Comment: If a non-fasting specimen was collected, consider repeat triglyceride testing on a fasting specimen if clinically indicated. Laura et al. J. of Clin. Lipidol. 2015;9:129-169. Performed By: #### 7 600, 42493, 5399 #### [facility] [address], [address] [place] [address] Rating Clerk: Oracio Hurley MD TSHon 12-27-2024 TSH Qn 0.55 m[IU]/L Normal [facility] Comment on above: Order Comment: FASTI NG:YES FASTING: YES Result Comment: Refe rence Range > or = 20 Years 0.40-4.50 Ranges First trimester 0.26-2.66 Second trimester 0.55-2.73 Third trimester 0.43-2.91 Performed By: #### 8 99 #### [facility] [address], [address] [place] [address] Rating Clerk: Oracio Gann 10-22-2024 CNOV Office Visit (UCWSTR ) MELINDA MYERS ([id number]) 1970 F Date Time Provider Department 10/22/24 2:15 PM SALO OLIVEROS [facility] During your visit today, we recorded the following information about you: Temperature Pulse Respiration Blood pressure 101 degrees 115/minute 20/minute 130/64 Weight 105.1 kg Salo Oliveros PA 10/22/2024 3:21 PM Signed This note was created using Indelsulter. Subjective Melinda Myers is a 53 year old female. HPI 53-year-old female presents for cough, fever, congestion. Patient states she has had a cough for the past 2 to 3 weeks. She states it is a dry cough. She states she was seen at a telehealth visit about 2-1/2 weeks ago and diagnosed with bronchitis, given Tessalon Perles and albuterol inhaler. This helped slightly, but cough has been persistent. She states that she started getting body aches and chills x 2 days ago. She does have a fever here. She denies any chest pain or shortness of breath. No vomiting or diarrhea. No history of COPD or asthma. She is not a smoker. She denies any sore throat. She did have nasal congestion initially, but that improved. She took Aleve last night with minimal improvement. No other complaint. PAST MEDICAL HISTORY Diagnosis Date Dysthymic disorder Depression (non-psychotic) Goiter, unspecified PAST SURGICAL HISTORY Procedure Laterality Date DILATION AND CURETTAGE DXAND/THER NONOBSTETRIC Dilation AND curettage INSERTION OF IUD 03/19/2014 IUD REMOVAL 05/2015 KNEE SURGERY HX Left 08/2015 LAPS SURG CHOLECYSTECTOMY W/CHOLANGIOGRAPHY 9-20-13 ALLERGIES Penicillins MEDICATIONS losartan-hydroCHLOROt hiazide (HYZAAR) 50-12.5 mg per tablet potassium chloride SR (MICRO-K) 10 mEq CR capsule meloxicam (MOBIC) 15 mg tablet Take 15 mg by mouth once daily. sertraline (ZOLOFT) 50 mg tablet 75 mg. lisinopril (ZESTRIL, PRINIVIL) 10 mg tablet Take 10 mg by mouth once daily. (Patient not taking: Reported on 11/08/2022) albuterol HFA (PROVENTIL HFA, VENTOLIN HFA) 90 mcg/actuation inhaler Inhale 2 Puffs as instructed every 4 hours as needed for Wheezing/Shortness of Breath. (Patient not taking: Reported on 11/08/2022) Levonorgestrel-Ethiny l Estrad (AVIANE) 0.1mg - 20mcg per tablet Take 1 tablet by mouth once daily. (Patient not taking: No sig reported) multivitamin tablet Take 1 tablet by mouth once daily. (Patient not taking: Reported on 11/08/2022) B Complex Vitamins capsule Take 1 capsule by mouth once daily. (Patient not taking: No sig reported) Magnesium 200 mg tab Take by mouth. (Patient not taking: No sig reported) GLUC GAVIRIA/CHONDRO GAVIRIA A/VIT C/MN (GLUCOSAMINE CHONDROITIN SMCONC ORAL) Take by mouth. (Patient not taking: Reported on 11/08/2022) FAMILY HISTORY Problem Relation Age of Onset Heart Mother [place] other (FIBROMYALGIA) Mother Heart Maternal Grandmother [place] other (parkinsons) Maternal Grandfather Heart Paternal Grandmother chf Cancer Paternal Grandfather LUNG CANCER Stroke Maternal Aunt Aneurysm Maternal Aunt Breast Cancer Maternal Aunt Breast Cancer Other MGGM Social History Tobacco Use Smoking status: Never Smokeless tobacco: Never Substance Use Topics Alcohol use: Yes Comment: rarely, not while Drug use: No Review of Systems Constitutional: Positive for chills and fever. HENT: Negative for congestion, ear pain and sore throat. Respiratory: Positive for cough. Negative for shortness of breath. Cardiovascular: Negative for chest pain. Gastrointestinal: Negative for abdominal pain, diarrhea and vomiting. Musculoskeletal: Positive for myalgias. Objective BP 130/64 Pulse 115 Temp (!) 38.3 ?C (101 ?F) Resp 20 Wt 105.1 kg (231 lb 11.3 oz) LMP 03/19/2017 SpO2 94% BMI 38.56 kg/m? Physical Exam Vitals and nursing note reviewed. Constitutional: General: She is not in acute distress. Appearance: Normal appearance. She is not toxic-appearing. HENT: Right Ear: Tympanic membrane and ear canal normal. Left Ear: Tympanic membrane and ear canal normal. Nose: Nose normal. Mouth/Throat: Mouth: Mucous membranes are moist. Pharynx: Oropharynx is clear. Eyes: Conjunctiva/sclera: Conjunctivae normal. Cardiovascular: Rate and Rhythm: Regular rhythm. Tachycardia present. Pulmonary: Effort: Pulmonary effort is normal. Breath sounds: Normal breath sounds. No wheezing, rhonchi or rales. Skin: General: Skin is warm and dry. Neurological: Mental Status: She is alert. Assessment and Plan ASSESSMENT/PLAN: 1. Pneumonia of left lung due to infectious organism, unspecified part of lung - ICD9: 486, ICD10: J18.9 (primary diagnosis) -Chest x-ray reveals hazy and patchy opacities in left lung raising concern for infection or pneumonia. Please clinically correlate. -Suspect pneumonia. Rx for doxycycline -Follow-up with PCP in 4 to (more content not included)... Normal [facility] XR CHEST 2V FRONTAL/LATon XR CHEST 2V FRONTAL/LAT * * *Final Report* * * DATE OF EXAM: Oct 22 2024 3:10PM WOX 5291 - XR CHEST 2V FRONTAL/LAT / PROCEDURE REASON: multiple diagnoses * * * * Physician Interpretation * * * * EXAMINATION: CHEST RADIOGRAPH (2 VIEW FRONTAL and LATERAL) CLINICAL HISTORY: Acute cough Fever, unspecified fever cause MQ: XC2_6 EXAM DATE/TIME: 10/22/2024 3:10 PM COMPARISON: No relevant prior studies available. RESULT: Lines, tubes, and devices: None. Lungs and pleura: There are a few hazy and patchy opacities in the left upper and lower lungs. The right lung is clear. No mass lesion identified. No pleural effusions or pneumothorax. Cardiomediastinal silhouette: Normal cardiomediastinal silhouette. Bones and soft tissues: The spine shows degenerative changes. IMPRESSION: Hazy and patchy opacities in the left lung, raising concern for infection or pneumonia. Please clinically correlate. Stem Roller Or Crusher Operator: PSCB Transcribe Date/Time: Oct 22 2024 3:12P Dictated by : ALEA PITTMAN MD This examination was interpreted and the report reviewed and electronically signed by: ALEA PITTMAN MD on Oct 22 2024 3:14PM EST [id number] Normal [facility] XR Chest PA and Lateralon IMPRESSION: Hazy and patchy opacities in the left lung, raising concern for infection or pneumonia. Please clinically correlate. Stem Roller Or Crusher Operator: PSCB Transcribe Date/Time: Oct 22 2024 3:12P Dictated by : ALEA PITTMAN MD This examination was interpreted and the report reviewed and electronically signed by: ALEA PITTMAN MD on Oct 22 2024 3:14PM EST DIVISION OF RADIOLOGY * * *Final Report* * * DATE OF EXAM: Oct 22 2024 3:10PM WOX 5291 - XR CHEST 2V FRONTAL/LAT / PROCEDURE REASON: multiple diagnoses * * * * Physician Interpretation * * * * EXAMINATION: CHEST RADIOGRAPH (2 VIEW FRONTAL & LATERAL) CLINICAL HISTORY: Acute cough Fever, unspecified fever cause MQ: XC2_6 EXAM DATE/TIME: 10/22/2024 3:10 PM COMPARISON: No relevant prior studies available. RESULT: Lines, tubes, and devices: None. Lungs and pleura: There are a few hazy and patchy opacities in the left upper and lower lungs. The right lung is clear. No mass lesion identified. No pleural effusions or pneumothorax. Cardiomediastinal silhouette: Normal cardiomediastinal silhouette. Bones and soft tissues: The spine shows degenerative changes. DIVISION OF RADIOLOGY Provider, [facility] - 10/22/2024 * * *Final Report* * * DATE OF EXAM: Oct 22 2024 3:10PM WOX 5291 - XR CHEST 2V FRONTAL/LAT / PROCEDURE REASON: multiple diagnoses * * * * Physician Interpretation * * * * EXAMINATION: CHEST RADIOGRAPH (2 VIEW FRONTAL & LATERAL) CLINICAL HISTORY: Acute cough Fever, unspecified fever cause MQ: XC2_6 EXAM DATE/TIME: 10/22/2024 3:10 PM COMPARISON: No relevant prior studies available. RESULT: Lines, tubes, and devices: None. Lungs and pleura: There are a few hazy and patchy opacities in the left upper and lower lungs. The right lung is clear. No mass lesion identified. No pleural effusions or pneumothorax. Cardiomediastinal silhouette: Normal cardiomediastinal silhouette. Bones and soft tissues: The spine shows degenerative changes. IMPRESSION IMPRESSION: Hazy and patchy opacities in the left lung, raising concern for infection or pneumonia. Please clinically correlate. Stem Roller Or Crusher Operator: PSCB Transcribe Date/Time: Oct 22 2024 3:12P Dictated by : ALEA PITTMAN MD This examination was interpreted and the report reviewed and electronically signed by: ALEA PITTMAN MD on Oct 22 2024 3:14PM EST [facility] Radiology Study observation (narrative) [facility] XR Chest PA and LateralOrder ed By: [facility] Provider on 10-22-2024 [facility] Basic metabolic 2000 panelon 06-11-2024 Anion gap [Moles/Vol] 15 mmol/L Normal 10-20 [facility] Comment on above: Performed By: #### 2 4321-2 #### NAI MELCHOR ([id number]) [facility] ([facility]) [facility] [place] [address] Calcium [Mass/Vol] 9.5 mg/dL Normal 8.6-10.3 [facility] Comment on above: Performed By: #### 2 4321-2 #### NAI MELCHOR ([id number]) [facility] ([facility]) [facility] [place] [address] Chloride [Moles/Vol] 104 mmol/L Normal 98-107 [facility] Comment on above: Performed By: #### 2 4321-2 #### NAI MELCHOR ([id number]) [facility] ([facility]) [address] [place] [address] CO2 [Moles/Vol] 21 mmol/L Normal 21-32 [facility] Amb[facility] Comment on above: Performed By: #### 2 4321-2 #### NAI MELCHOR ([id number]) [facility] ([facility]) [facility] [place] [address] Creatinine [Mass/Vol] 0.69 mg/dL Normal 0.50-1.05 [facility] Comment on above: Performed By: #### 2 4321-2 #### NAI MELCHOR ([id number]) [facility] ([facility]) [address] [place] [address] GFR/1.73 sq M.predicted MDRD (S/P/Bld) [Vol rate/Area] mL/min/{1.73_m2} Normal >60 [facility] Comment on above: Result Comment: Calc ulations of estimated GFR are performed using the 2020 CKD-EPI Study Refit equation without the race variable for the IDMS-Traceable creatinine methods. https://jasn.asnjournals.org/content/early//ASN.822069492 8 Performed By: #### 2 4321-2 #### NAI MELCHOR ([id number]) [facility] ([facility]) [address] [place] [address] Glucose [Mass/Vol] 87 mg/dL Normal 74-99 [facility] Comment on above: Performed By: #### 2 4321-2 #### NAI MELCHOR ([id number]) [facility] ([facility]) [address] [place] [address] Potassium [Moles/Vol] 3.5 mmol/L Normal 3.5-5.3 [facility] Comment on above: Performed By: #### 2 4321-2 #### NAI MELCHOR ([id number]) [facility] ([facility]) [address] [place] [address] Sodium [Moles/Vol] 136 mmol/L Normal 136-145 [facility] Comment on above: Performed By: #### 2 4321-2 #### NAI MELCHOR ([id number]) [facility] ([facility]) [address] [place] [address] Urea nitrogen [Mass/Vol] 18 mg/dL Normal 6-23 [facility] Comment on above: Performed By: #### 2 4321-2 #### NAI MELCHOR ([id number]) [facility] ([facility]) [address] [place] [address] 07471 HbA1c (Bld) [Mass fraction]o n 06-11-2024 Average glucose Estimated from glycated hemoglobin (Bld) [Mass/Vol] 105 mg/dL Normal Not Established [facility] Comment on above: Order Comment: Diagn osis of Diabetes-Adults Non-Diabetic: < or = 5.6% Increased risk for developing diabetes: 5.7-6.4% Diagnostic of diabetes: > or = 6.5% Performed By: #### 4 548-4 #### JAGDEEP Last ([id number]) [facility] ([facility]) [address] [place] [id number] Hemoglobin A1c/Hemoglobin.to james 06-11-2024 HbA1c (Bld) [Mass fraction] 5.3 % Normal see below [facility] Amb[facility] Comment on above: Order Comment: Diagn osis of Diabetes-Adults Non-Diabetic: < or = 5.6% Increased risk for developing diabetes: 5.7-6.4% Diagnostic of diabetes: > or = 6.5% Performed By: #### 4 548-4 #### JAGDEEP Last ([id number]) [facility] ([facility]) [address] [place] [address] Basic metabolic 2000 panelon 01-06-2024 Anion gap [Moles/Vol] 10 mmol/L 10 - 20 mmol/L [facility] Calcium [Mass/Vol] 9.2 mg/dL 8.4 - 10. 2 mg/dL [facility] Chloride [Moles/Vol] 107 mmol/L 98 - 108 mmol/L [facility] Creatinine [Mass/Vol] 0.74 mg/dL 0.40 - 1.10 mg/dL [facility] GFR/1.73 sq M.predicted CKD-EPI (S/P/Bld) [Vol rate/Area] 98 - PINF [facility] Comment on above: Estimated GFR was ca lculated using the 2020 CKD-EPI creatinine equation. Glucose [Mass/Vol] 109 mg/dL High 65 - 99 mg/dL [facility] HCO3 [Moles/Vol] 24 mmol/L 21 - 32 mmol/L [place] Interpretation and review of laboratory results Abnormal [facility] Potassium [Moles/Vol] 3.4 mmol/L Low 3.5 - 5.1 mmol/L [facility] Sodium [Moles/Vol] 138 mmol/L 135 - 145 mmol/L [facility] Urea nitrogen [Mass/Vol] 14 mg/dL 8 - 25 mg/dL [facility] Urea nitrogen/Creatinin e [Mass ratio] 18.9 mg/mg 10.0 - 20.0 [facility] has implemented the eGFR calculation approach that does not have a coefficient for race that conforms to the NKF-ASN Task Force Recommendations. [facility] CBC panel Auto (Bld)on 01-06 Erythrocyte distribution width (RBC) [Entitic vol] 12.1 % 11.6 - 14.8 % [facility] Hematocrit (Bld) [Volume fraction] 41.4 % 36.0 - 46.0 % [facility] Hemoglobin (Bld) [Mass/Vol] 13.9 g/dL 12.0 - 16.0 g/dL [facility] MCH (RBC) [Entitic mass] 30.8 pg 26.0 - 34.0 pg [facility] MCHC (RBC) [Mass/Vol] 33.6 g/dL 31.0 - 37.0 g/dL [facility] MCV (RBC) [Entitic vol] 91.6 fL 80.0 - 100.0 fL [facility] Nucleated RBC (Bld) [#/Vol] 0.00 10*3/uL [facility] Nucleated RBC/100 WBC (Bld) [Ratio] 0.0 % [facility] Platelet mean volume (Bld) [Entitic vol] 10.4 fL 9.4 - 12.4 fL [facility] Platelets (Bld) [#/Vol] 253 10*3/uL [facility] RBC (Bld) [#/Vol] 4.52 10*6/uL [facility] WBC (Bld) [#/Vol] 9.23 10*3/uL [facility]A Heart (Associate Justice contreras matos)on 01-06-2024 1. Total calcium score: zero 2. No evidence of coronary stenosis or plaque by Coronary CT Angiography CAD RADS (score): 0 RECOMMENDATIONS: CAD-RADS 0. 0% coronary stenosis. There is an absence of coronary artery disease. No further cardiac investigation suggested. Plaque: None Modifiers: No modifiers are present Exceptions: None [place] Coronary Computed Angiography Report Patient Name: Melinda Myers Age: 53 y.o. Requesting Physician: Dr Clarke Interpreting Associate Justice: Melinda Thompson MD Primary Care Physician: Maylin Pepe Clinical Indication: Chest pain Gender: female Race/Ethnicity: White Cardiovascular risk factors: Family history of CV disease Procedure: Computed tomographic angiography with contrast, including 3D image post-processing (including evaluation of cardiac structures and morphology, assessment of cardiac function and evaluation of venous structures, if performed) BMI: 39 kg/msq HR: 65 BPM Acquisition mode: Prospective, ECG triggered Complications: None Image Quality: Good, No significant artifacts. Scanner: RaySat Revolution DLP 232.49 mGy 98cc Isovue-370. 0.4mg SL nitroglycerin administered prior to scan. Radiation dose reduction was achieved by using automated exposure control and or adjustments of mA and/or kV according to patient size and/or use of iterative reconstruction techniques. Coronary Calcium / Agatston scoring: LM: 0 RCA: 0 LAD: 0 LCX: 0 Total: 0 Percentile age/gender cohort: N/A percentile for age, gender and race/ethnicity-matche d group per [employer] database. Coronary Angiography: Left Main: The left main is a large vessel with a normal take off from the left coronary cusp that bifurcates. There is no plaque or stenosis. Left anterior descending artery: The LAD is patent with no evidence of plaque or stenosis. The LAD gives off two diagonal branches that are patent. Left circumflex artery: The LCx is non dominant and patent with no evidence of plaque or stenosis. The LCx gives off one small obtuse marginal branch that is patent. Right coronary artery: The RCA is dominant with no evidence of plaque or stenosis. The RCA terminates as a PDA and right posteriorlateral branch without evidence of plaque or stenosis. Cardiac Morphology: Left atrium: Left atrial size is Normal Left Ventricle: The ventricular cavity size is within normal limits. There is no abnormal filling defects. Pulmonary Veins: Normal pulmonary venous drainage. Pericardium: Normal thickness with no significant effusion or calcification present. Cardiac valves: There is no thickening or calcification in the aortic and mitral valves. Aorta: Normal caliber of the portion of the thoracic aorta imaged. No calcification. PLEASE SEE SEPARATE RADIOLOGY REPORT FOR THE NONCARDIAC FINDINGS [place] (Associate Justice contreras matos)Ordered By: Melinda Thompson on 01-06-2024 [facility] Work Phone: CT [facility] (REPORTING SPECIALIST READ)on 01-06-2024 CT [facility] (REPORTING SPECIALIST READ) Coronary Computed Angiography Report Patient Name: Melinda Myers Age: 53 y.o. Requesting Physician: Dr Clarke Interpreting Associate Justice: Melinda Thompson MD Primary Care Physician: Maylin Pepe Clinical Indication: Chest pain Gender: female Race/Ethnicity: White Cardiovascular risk factors: Family history of CV disease Procedure: Computed tomographic angiography with contrast, including 3D image post-processing (including evaluation of cardiac structures and morphology, assessment of cardiac function and evaluation of venous structures, if performed) BMI: 39 kg/msq HR: 65 BPM Acquisition mode: Prospective, ECG triggered Complications: None Image Quality: Good, No significant artifacts. Scanner: RaySat Revolution DLP 232.49 mGy 98cc Isovue-370. 0.4mg SL nitroglycerin administered prior to scan. Radiation dose reduction was achieved by using automated exposure control and or adjustments of mA and/or kV according to patient size and/or use of iterative reconstruction techniques. Coronary Calcium / Agatston scoring: LM: 0 RCA: 0 LAD: 0 LCX: 0 Total: 0 Percentile age/gender cohort: N/A percentile for age, gender and race/ethnicity-matche d group per [employer] database. Coronary Angiography: Left Main: The left main is a large vessel with a normal take off from the left coronary cusp that bifurcates. There is no plaque or stenosis. Left anterior descending artery: The LAD is patent with no evidence of plaque or stenosis. The LAD gives off two diagonal branches that are patent. Left circumflex artery: The LCx is non dominant and patent with no evidence of plaque or stenosis. The LCx gives off one small obtuse marginal branch that is patent. Right coronary artery: The RCA is dominant with no evidence of plaque or stenosis. The RCA terminates as a PDA and right posteriorlateral branch without evidence of plaque or stenosis. Cardiac Morphology: Left atrium: Left atrial size is Normal Left Ventricle: The ventricular cavity size is within normal limits. There is no abnormal filling defects. Pulmonary Veins: Normal pulmonary venous drainage. Pericardium: Normal thickness with no significant effusion or calcification present. Cardiac valves: There is no thickening or calcification in the aortic and mitral valves. Aorta: Normal caliber of the portion of the thoracic aorta imaged. No calcification. PLEASE SEE SEPARATE RADIOLOGY REPORT FOR THE NONCARDIAC FINDINGS IMPRESSION: 1. Total calcium score: zero 2. No evidence of coronary stenosis or plaque by Coronary CT Angiography CAD RADS (score): 0 RECOMMENDATIONS: CAD-RADS 0. 0% coronary stenosis. There is an absence of coronary artery disease. No further cardiac investigation suggested. Plaque: None Modifiers: No modifiers are present Exceptions: None Dictated by: MELINDA THOMPSON on TueJan 06, 2024 1:40:59 PM EST Transcribed by: MELINDA THOMPSON on TueJan 06, 2024 1:40:59 PM EST Finalized by: MELINDA THOMPSON on TueJan 06, 2024 1:40:59 PM EST Normal [facility] [place] Comment on above: Order Comment: NPO s tatus not required for this exam however caffeine should be minimized prior to exam. CT [facility] WITH AND WITHO UT CONTRASTon 01-06-2024 CT [facility] WITH AND WITHOUT CONTRAST EXAMINATION: CT [facility] WITH AND WITHOUT CONTRAST HISTORY: ORDERING SYSTEM PROVIDED HISTORY: Chest pain/anginal equiv, intermediate CAD risk, not treadmill candidate, TECHNOLOGIST PROVIDED HISTORY: Illness/Other Reason for Exam: Chest pain, supplemental read Encounter Type: Initial Additional Signs and Symptoms: . ORDERING SYSTEM PROVIDED DIAGNOSIS CODES: COMPARISON: 01/05/2024 chest radiograph. TECHNIQUE: CT imaging from the base of the heart to the apex before and after the administration of intravenous contrast. CT calcium score and CTA coronary protocol was utilized. Associate Justice will interpret the CT calcium score and CTA coronary portion of the examination. Radiologist will interpret the extracardiac portion of the examination. Dose reduction techniques were achieved by using automated exposure control and/or adjustment of mA and/or kV according to patient size and/or use of iterative reconstruction technique. CONTRAST: IOPAMIDOL 370 MG IODINE/ML (76 %) INTRAVENOUS SOLUTION - 98 mL, FINDINGS: MEDIASTINUM: Visualized airways are patent. Heart is normal in size without pericardial effusion. The visualized thoracic aorta is normal in caliber without dissection. Main pulmonary artery is normal in caliber. No large or central pulmonary embolus. Nodular in the lower thoracic esophagus. Small calcified lymph node near the gastroesophageal junction. PLEURAL CAVITY: No pleural effusion. LUNGS: Visualized bilateral lungs demonstrate no definite nodules or infiltrate. VISUALIZED UPPER ABDOMEN: No acute findings. Hepatic steatosis. BONES: No destructive lesions. IMPRESSION: No focal airspace consolidation. Nodular thickening of the lower thoracic esophagus. Please correlate for esophagitis. Recommend endoscopic evaluation. Hepatic steatosis. Please refer to separate report for calcium score and cardiac evaluation. ST/lab Workstation ID: [id number] Dictated by: PAMELA JONES on TueJan 06, 2024 12:57:18 PM EST Transcribed by: PIETRO HYDE on TueJan 06, 2024 1:28:41 PM EST Finalized by: PAMELA JONES on TueJan 06, 2024 4:55:17 PM EST Normal [facility] [place] Comment on above: Order Comment: NPO s tatus not required for this exam however caffeine should be minimized prior to exam. Injury/Trauma or Illness?:Illness/Other How long have you had these symptoms (acute/chronic)?:Acute Reason for exam?:chest pain, supplemental read Type of Exam?:Initial Additional signs and symptoms?:. CTA Heart and Coronary arter ies WO and W contrast Char 01-06-2024 No focal airspace consolidation. Nodular thickening of the lower thoracic esophagus. Please correlate for esophagitis. Recommend endoscopic evaluation. Hepatic steatosis. Please refer to separate report for calcium score and cardiac evaluation. ST/lab Workstation ID: [id number] [facility] EXAMINATION: CT [facility] HEART WITH AND WITHOUT CONTRAST HISTORY: ORDERING SYSTEM PROVIDED HISTORY: Chest pain/anginal equiv, intermediate CAD risk, not treadmill candidate, TECHNOLOGIST PROVIDED HISTORY: Illness/Other Reason for Exam: Chest pain, supplemental read Encounter Type: Initial Additional Signs and Symptoms: . ORDERING SYSTEM PROVIDED DIAGNOSIS CODES: COMPARISON: 01/05/2024 chest radiograph. TECHNIQUE: CT imaging from the base of the heart to the apex before and after the administration of intravenous contrast. CT calcium score and CTA coronary protocol was utilized. Associate Justice will interpret the CT calcium score and CTA coronary portion of the examination. Radiologist will interpret the extracardiac portion of the examination. Dose reduction techniques were achieved by using automated exposure control and/or adjustment of mA and/or kV according to patient size and/or use of iterative reconstruction technique. CONTRAST: IOPAMIDOL 370 MG IODINE/ML (76 %) INTRAVENOUS SOLUTION - 98 mL, FINDINGS: MEDIASTINUM: Visualized airways are patent. Heart is normal in size without pericardial effusion. The visualized thoracic aorta is normal in caliber without dissection. Main pulmonary artery is normal in caliber. No large or central pulmonary embolus. Nodular in the lower thoracic esophagus. Small calcified lymph node near the gastroesophageal junction. PLEURAL CAVITY: No pleural effusion. LUNGS: Visualized bilateral lungs demonstrate no definite nodules or infiltrate. VISUALIZED UPPER ABDOMEN: No acute findings. Hepatic steatosis. BONES: No destructive lesions. [facility] Robert Pamela Ayers, DO - 01/06/2024 EXAMINATION: CT [facility] WITH AND WITHOUT CONTRAST HISTORY: ORDERING SYSTEM PROVIDED HISTORY: Chest pain/anginal equiv, intermediate CAD risk, not treadmill candidate, TECHNOLOGIST PROVIDED HISTORY: Illness/Other Reason for Exam: Chest pain, supplemental read Encounter Type: Initial Additional Signs and Symptoms: . ORDERING SYSTEM PROVIDED DIAGNOSIS CODES: COMPARISON: 01/05/2024 chest radiograph. TECHNIQUE: CT imaging from the base of the heart to the apex before and after the administration of intravenous contrast. CT calcium score and CTA coronary protocol was utilized. Associate Justice will interpret the CT calcium score and CTA coronary portion of the examination. Radiologist will interpret the extracardiac portion of the examination. Dose reduction techniques were achieved by using automated exposure control and/or adjustment of mA and/or kV according to patient size and/or use of iterative reconstruction technique. CONTRAST: IOPAMIDOL 370 MG IODINE/ML (76 %) INTRAVENOUS SOLUTION - 98 mL, FINDINGS: MEDIASTINUM: Visualized airways are patent. Heart is normal in size without pericardial effusion. The visualized thoracic aorta is normal in caliber without dissection. Main pulmonary artery is normal in caliber. No large or central pulmonary embolus. Nodular in the lower thoracic esophagus. Small calcified lymph node near the gastroesophageal junction. PLEURAL CAVITY: No pleural effusion. LUNGS: Visualized bilateral lungs demonstrate no definite nodules or infiltrate. VISUALIZED UPPER ABDOMEN: No acute findings. Hepatic steatosis. BONES: No destructive lesions. IMPRESSION: No focal airspace consolidation. Nodular thickening of the lower thoracic esophagus. Please correlate for esophagitis. Recommend endoscopic evaluation. Hepatic steatosis. Please refer to separate report for calcium score and cardiac evaluation. ST/lab Workstation ID: [id number] [facility] CTA Heart and Coronary arter ies WO and W contrast IVOrdered By: Pamela Jones on 01-06-2024 [facility] Work Phone: ECHOCARDIOGRAM COMPLETE W CO NTRASTon 01-06-2024 ECHOCARDIOGRAM COMPLETE W CONTRAST Patient Info Name: MELINDA MYERS Age: 53 years : 1970 Gender: Female Ht: 165 cm Wt: 106 kg BSA: 2.26 m2 HR: 76 bpm BP: 123 / 69 mmHg Heart Rhythm: Sinus Rhythm Technical Quality: Fair Exam Date: 01/06/2024 2:45 PM Patient Status: Inpatient Branch Office Manager: Benjamin Humphries RCDS Exam Type: ECHOCARDIOGRAM COMPLETE W CONTRAST Study Info Indications - Chest pain R07.9 - Chest pain, unspecified Referring Physician: AUGIE MORGAN ; [id number] BMI: 38.94 kg/m2 Summary 1. This study was technically limited, Definity IV contrast was used to enhance endocardial definition. 2. Left ventricular systolic function is normal with an ejection fraction by Biplane Method of Discs of 72 %. 3. Right ventricular size and systolic function are normal. 4. The left ventricular diastolic function is normal. 5. No hemodynamically significant valvular disease. History/Risk Factors Tobacco Use: Never Procedure(s): Complete two-dimensional, color flow and Doppler transthoracic echocardiogram is performed with contrast. Definity explained to patient. Patient verbalizes understanding and agrees to proceed. Definity 1.3ml/8.7ml normal sterile saline 1 ml total given IV over 30-60 seconds. Left Ventricle Left ventricular chamber dimension is normal. Left ventricular systolic function is normal with an ejection fraction by Biplane Method of Discs of 72 %. Normal left ventricular mass. Left ventricular segmental wall motion is normal. The left ventricular diastolic function is normal. Right Ventricle Right ventricular size and systolic function are normal. Left Atria Left atrial chamber is normal with a left atrial volume index of 21 ml/m2 by BP MOD. Right Atria Right atrial chamber dimension is normal. Aortic Valve The aortic valve is trileaflet. There is no aortic valve sclerosis. There is no aortic valve stenosis. There is no aortic valve regurgitation. Pulmonic Valve The pulmonic valve is normal. There is no pulmonic valve stenosis. There is no pulmonic regurgitation. Mitral Valve The mitral valve has normal leaflets. There is no mitral valve stenosis. There is trace mitral valve regurgitation. Tricuspid Valve The tricuspid valve leaflets are normal. There is no significant tricuspid valve stenosis. There is no tricuspid valve regurgitation. RV systolic pressure could not be accurately estimated. Pericardium/Pleural There is no pericardial effusion. Inferior Vena Cava Inferior vena cava is not well visualized. Aorta The aortic measurements are indexed to age and body surface area. The aortic root is normal measuring 2.8 cm with an index of 1.3 cm/m2. Left Ventricular Outflow Tract ------- Name Value Normal ------- LVOT 2D ------- LVOT Diameter 2.1 cm LVOT Doppler ------- LVOT Peak Velocity 0.7 m/s LVOT Peak Gradient 2 mmHg LVOT Mean Gradient 1 mmHg LVOT VTI 16 cm LVOT Stroke Volume 57 ml LVOT Stroke Index 25.33 ml/m2 Pulmonic Valve ------- Name Value Normal ------- RVOT Doppler ------- RVOT Peak Velocity 74 cm/s RVOT Peak Gradient 2 mmHg RVOT Mean Gradient 1 mmHg RVOT VTI 20 cm Mitral Valve ------- Name Value Normal ------- MV Doppler ------- MV Peak Velocity 0.82 m/s MV Peak Gradient 2 mmHg MV Mean Gradient 1 mmHg MV VTI 22 cm MV Decel [place] 330 cm/s2 MV PHT 59 ms MV Area (PHT) 3.8 cm2 4.0-5.0 MV Area (Cont Eq VTI) 2.6 cm2 MV Area Index (Cont Eq VTI) 1.13 cm2/m2 MV DVI 1.36 MV Diastolic Function ------- MV E Peak Velocity 0.67 m/s MV A Peak Velocity 0.52 m/s MV E/A 1.3 MV Decel Time 202 ms MV Annular TDI ------- MV Septal e' Velocity 6.6 cm/s >=8.0 MV E/e' (Septal) 10.1 <=8.0 MV Lateral e' Velocity 8.3 cm/s >=10.0 MV E/e' (Lateral) 8.1 <=8.0 MV e' Average 7.43 cm/s MV E/e' (Average) 9.1 Tricuspid Valve ------- Name Value Normal ------- TV Regurgitation Doppler ------- TR (more content not included)... Normal [facility] [place] Echocardiogram complete w co ntraston 01-06-2024 EF 72.0707 % [facility] Patient Info Name: MELINDA MYERS Age: 53 years : 1970 Gender: Female Ht: 165 cm Wt: 106 kg BSA: 2.26 m2 HR: 76 bpm BP: 123 / 69 mmHg Heart Rhythm: Sinus Rhythm Technical Quality: Fair Exam Date: 01/06/2024 2:45 PM Patient Status: Inpatient Branch Office Manager: Benjamin Humphries RCDS Exam Type: ECHOCARDIOGRAM COMPLETE W CONTRAST Study Info Indications - Chest pain R07.9 - Chest pain, unspecified Referring Physician: AUGIE MORGAN ; [id number] BMI: 38.94 kg/m2 Summary 1. This study was technically limited, Definity IV contrast was used to enhance endocardial definition. 2. Left ventricular systolic function is normal with an ejection fraction by Biplane Method of Discs of 72 %. 3. Right ventricular size and systolic function are normal. 4. The left ventricular diastolic function is normal. 5. No hemodynamically significant valvular disease. History/Risk Factors Tobacco Use: Never Procedure(s): Complete two-dimensional, color flow and Doppler transthoracic echocardiogram is performed with contrast. Definity explained to patient. Patient verbalizes understanding and agrees to proceed. Definity 1.3ml/8.7ml normal sterile saline 1 ml total given IV over 30-60 seconds. Left Ventricle Left ventricular chamber dimension is normal. Left ventricular systolic function is normal with an ejection fraction by Biplane Method of Discs of 72 %. Normal left ventricular mass. Left ventricular segmental wall motion is normal. The left ventricular diastolic function is normal. Right Ventricle Right ventricular size and systolic function are normal. Left Atria Left atrial chamber is normal with a left atrial volume index of 21 ml/m2 by BP MOD. Right Atria Right atrial chamber dimension is normal. Aortic Valve The aortic valve is trileaflet. There is no aortic valve sclerosis. There is no aortic valve stenosis. There is no aortic valve regurgitation. Pulmonic Valve The pulmonic valve is normal. There is no pulmonic valve stenosis. There is no pulmonic regurgitation. Mitral Valve The mitral valve has normal leaflets. There is no mitral valve stenosis. There is trace mitral valve regurgitation. Tricuspid Valve The tricuspid valve leaflets are normal. There is no significant tricuspid valve stenosis. There is no tricuspid valve regurgitation. RV systolic pressure could not be accurately estimated. Pericardium/Pleural There is no pericardial effusion. Inferior Vena Cava Inferior vena cava is not well visualized. Aorta The aortic measurements are indexed to age and body surface area. The aortic root is normal measuring 2.8 cm with an index of 1.3 cm/m2. Left Ventricular Outflow Tract ------- Name Value Normal ------- LVOT 2D ------- LVOT Diameter 2.1 cm LVOT Doppler ------- LVOT Peak Velocity 0.7 m/s LVOT Peak Gradient 2 mmHg LVOT Mean Gradient 1 mmHg LVOT VTI 16 cm LVOT Stroke Volume 57 ml LVOT Stroke Index 25.33 ml/m2 Pulmonic Valve ------- Name Value Normal ------- RVOT Doppler ------- RVOT Peak Velocity 74 cm/s RVOT Peak Gradient 2 mmHg RVOT Mean Gradient 1 mmHg RVOT VTI 20 cm Mitral Valve ------- Name Value Normal ------- MV Doppler ------- MV Peak Velocity 0.82 m/s MV Peak Gradient 2 mmHg MV Mean Gradient 1 mmHg MV VTI 22 cm MV Decel [place] 330 cm/s2 MV PHT 59 ms MV Area (PHT) 3.8 cm2 4 (more content not included)... FUJI SYNAPSE CV Melinda Thompson MD - 01/06/2024 Patient Info Name: MELINDA MYERS Age: 53 years : 1970 Gender: Female Ht: 165 cm Wt: 106 kg BSA: 2.26 m2 HR: 76 bpm BP: 123 / 69 mmHg Heart Rhythm: Sinus Rhythm Technical Quality: Fair Exam Date: 01/06/2024 2:45 PM Patient Status: Inpatient Branch Office Manager: Benjamin Humphries RCDS Exam Type: ECHOCARDIOGRAM COMPLETE W CONTRAST Study Info Indications - Chest pain R07.9 - Chest pain, unspecified Referring Physician: AUGIE MORGAN ; [id number] BMI: 38.94 kg/m2 Summary 1. This study was technically limited, Definity IV contrast was used to enhance endocardial definition. 2. Left ventricular systolic function is normal with an ejection fraction by Biplane Method of Discs of 72 %. 3. Right ventricular size and systolic function are normal. 4. The left ventricular diastolic function is normal. 5. No hemodynamically significant valvular disease. History/Risk Factors Tobacco Use: Never Procedure(s): Complete two-dimensional, color flow and Doppler transthoracic echocardiogram is performed with contrast. Definity explained to patient. Patient verbalizes understanding and agrees to proceed. Definity 1.3ml/8.7ml normal sterile saline 1 ml total given IV over 30-60 seconds. Left Ventricle Left ventricular chamber dimension is normal. Left ventricular systolic function is normal with an ejection fraction by Biplane Method of Discs of 72 %. Normal left ventricular mass. Left ventricular segmental wall motion is normal. The left ventricular diastolic function is normal. Right Ventricle Right ventricular size and systolic function are normal. Left Atria Left atrial chamber is normal with a left atrial volume index of 21 ml/m2 by BP MOD. Right Atria Right atrial chamber dimension is normal. Aortic Valve The aortic valve is trileaflet. There is no aortic valve sclerosis. There is no aortic valve stenosis. There is no aortic valve regurgitation. Pulmonic Valve The pulmonic valve is normal. There is no pulmonic valve stenosis. There is no pulmonic regurgitation. Mitral Valve The mitral valve has normal leaflets. There is no mitral valve stenosis. There is trace mitral valve regurgitation. Tricuspid Valve The tricuspid valve leaflets are normal. There is no significant tricuspid valve stenosis. There is no tricuspid valve regurgitation. RV systolic pressure could not be accurately estimated. Pericardium/Pleural There is no pericardial effusion. Inferior Vena Cava Inferior vena cava is not well visualized. Aorta The aortic measurements are indexed to age and body surface area. The aortic root is normal measuring 2.8 cm with an index of 1.3 cm/m2. Left Ventricular Outflow Tract ------- Name Value Normal ------- LVOT 2D ------- LVOT Diameter 2.1 cm LVOT Doppler ------- LVOT Peak Velocity 0.7 m/s LVOT Peak Gradient 2 mmHg LVOT Mean Gradient 1 mmHg LVOT VTI 16 cm LVOT Stroke Volume 57 ml LVOT Stroke Index 25.33 ml/m2 Pulmonic Valve ------- Name Value Normal ------- RVOT Doppler ------- RVOT Peak Velocity 74 cm/s RVOT Peak Gradient 2 mmHg RVOT Mean Gradient 1 mmHg RVOT VTI 20 cm Mitral Valve ------- Name Value Normal ------- MV Doppler ------- MV Peak Velocity 0.82 m/s MV Peak Gradient 2 mmHg MV Mean Gradient 1 mmHg MV VTI 22 cm MV Decel [place] 330 cm/s2 MV PHT 59 ms MV Area (PHT) 3.8 cm2 4.0-5.0 MV Area (Cont Eq VTI) 2.6 cm2 MV Area Index (Cont Eq VTI) 1.13 cm2/m2 MV DVI 1.36 MV Diastolic Function ------- MV E Peak Velocity 0.67 m/s MV A Peak Velocity 0.52 m/s MV E/A 1.3 MV Decel Time 202 ms MV Annular TDI ------- MV Septal e' Velocity 6.6 cm/s >=8.0 MV E/e' (Septal) 10.1 <=8.0 MV Lateral e' Velocity 8.3 cm/s >=10.0 MV E/e' (Lateral) 8.1 <=8.0 MV e' Average 7.43 cm/s MV E/e' (Average) 9.1 Tricuspid Valve ------- Name Value Normal -------- (more content not included)... [facility] Lipid 1996 panelon 4 Cholesterol [Mass/Vol] 145 mg/dL 100 - 199 mg/dL [facility] Comment on above: National Cholesterol Education Program Guidelines: Cholesterol Desirable: <200 mg/dL Borderline High: 200-239 mg/dL High: greater than or equal to 240 mg/dL Cholesterol in HDL [Mass/Vol] 42 mg/dL 40 - 59 mg/dL [facility] Comment on above: National Cholesterol Education Program Guidelines: HDL Cholesterol Low: <40 mg/dL Near Optimal: 40-59 mg/dL High: greater than or equal to 60 mg/dL Cholesterol in LDL [Mass/Vol] 67 mg/dL 10 - 130 mg/dL [facility] Comment on above: National Cholesterol Education Program Guidelines: LDL Cholesterol Optimal: <100 mg/dL Near Optimal/above Optimal: 100-129 mg/dL Borderline High: 130-159 mg/dL High: 160-189 mg/dL Very High: greater than or equal to 190 mg/dL Cholesterol non HDL [Mass/Vol] 103 mg/dL [facility] Comment on above: National Cholesterol Education Program Guidelines: NON HDL Cholesterol Desirable: <130 mg/dL Borderline High: 130-159 mg/dL High: 160-189 mg/dL Very High: > or = 190 mg/dL Cholesterol.total/ Cholesterol in HDL [Mass ratio] 3.5 {ratio} ratio [facility] Comment on above: Female Cholesterol/H DL Ratio: Average risk: 4.4 1/2 average risk: 3.3 2 x average risk: 7.1 Interpretation and review of laboratory results Abnormal [facility] Triglyceride [Mass/Vol] 179 mg/dL High 30 - 150 mg/dL [facility] Comment on above: National Cholesterol Education Program Guidelines: Triglyceride Normal: <150 mg/dL Borderline High: 150-199 mg/dL High: 200-499 mg/dL Very High: greater than or equal to 500 mg/dL [facility] No Panel Informationon 01-06 Radiology Study observation (narrative) [facility] TSH DL <= 0.005 mIU/L Qnon 0 01-06-2024 Interpretation and review of laboratory results Normal [facility] TSH Qn 0.45 m[IU]/L [facility] Troponinon 01-05-2024 Troponin I 13 ng/L NINF - 59 ng/L [facility] Troponin I Interpretation Normal [facility] XR CHEST PA/APon 01-05-2024 XR CHEST PA/AP EXAMINATION: XR CHEST PA/AP 01/05/2024 11:49 am HISTORY: ORDERING SYSTEM PROVIDED HISTORY: chest pain, TECHNOLOGIST PROVIDED HISTORY: Illness/Other Reason for exam: chest pain radiasting into back Cancer History: n Surgery, RadiationHistory: n Encounter Type: Initial Additional signs and symptoms: n ORDERING SYSTEM PROVIDED DIAGNOSIS CODES: COMPARISON: None available. TECHNIQUE: Portable upright view of the chest. FINDINGS: Cardiac silhouette and mediastinal contours are within normal limits. The lungs are expanded and appear clear with no pneumothorax, focal airspace consolidation or sizable pleural effusion. Telemetry leads overlie the chest wall. No obvious acute osseous abnormality. IMPRESSION: No acute cardiopulmonary disease is identified. JAR/trn Workstation ID: [id number] Dictated by: DENNY ASHLEY on TueJan 05, 2024 11:58:23 AM EST Transcribed by: MORENO RICKS on TueJan 05, 2024 12:30:15 PM EST Finalized by: DENNY ASHLEY on TueJan 05, 2024 1:00:[address] [facility] Comment on above: Order Comment: Injur y/Trauma or Illness?:Illness/Other How long have you had these symptoms (acute/chronic)?:Acute Reason for exam?:chest pain radiasting into back History of cancer?:n Surgeries, chemotherapy, or radiation?:n Type of Exam?:Initial Additional signs and symptoms?:n STREP A MOLECULAR (POC)on Procedural Control Valid [facility] Strep A (POCT) Negative Negative [facility] - Molecular patho logyon 06-15-2022 Noninvasive colorectal cancer DNA and occult blood screening Kb (Stl) [Interp] Negative Negative [facility] Work Phone: Comment on above: [employer] (CLIA #:[id number])[address] [place] [address] JACOBO CARY , Clinical Laboratory Medical DirectorNEGATIVE TEST RESULT. A negative Cologuard result indicates a low likelihood that a colorectal cancer (CRC) or advanced adenoma (adenomatous polyps with more advanced pre-malignant features) is present. The chance that a person with a negative Cologuard test has a colorectal cancer is less than 1 in 1500 (negative predictive value >99.9%) or has an advanced adenoma is less than 5.3% (negative predictive value 94.7%). These data are based on a prospective cross-sectional study of 10,000 individuals at average risk for colorectal cancer who were screened with both Cologuard and colonoscopy. (Tanner Kumar al, N Engl J Med 2014;370(14):9489-7001) The normal value (reference range) for this assay is negative.COLOGUARD RE-SCREENING RECOMMENDATION: Periodic colorectal cancer screening is an important part of preventive healthcare for asymptomatic individuals at average risk for colorectal cancer. Following a negative Cologuard result, the [place] Cancer Society and U.S. Multi-Society Task Force screening guidelines recommend a Cologuard re-screening interval of 3 years. References: [place] Cancer Society Guideline for Colorectal Cancer Screening: https://www.cancer.org/cancer/wdccw-jboffv-chhigh/detection-diagnos is-staging/acs-recommendations.html.; Chivo ANAYA, Tyler YIN, Tommy PARNELL, Colorectal Cancer Screening: Recommendations for Physicians and Patients from the U.S. Multi-Society Task Force on Colorectal Cancer Screening , Am J Gastroenterology 2017; 112:5251-0941.TEST DESCRIPTION: Composite algorithmic analysis of stool DNA-biomarkers with hemoglobin immunoassay. Quantitative values of individual biomarkers are not reportable and are not associated with individual biomarker result reference ranges. Cologuard is intended for colorectal cancer screening of adults of either sex, 45 years or older, who are at average-risk for colorectal cancer (CRC). Cologuard has been approved for use by the U.S. FDA. The performance of Cologuard was established in a cross sectional study of average-risk adults aged 50-84. Cologuard performance in patients ages 45 to 49 years was estimated by sub-group analysis of near-age groups. Colonoscopies performed for a positive result may find as the most clinically significant lesion: colorectal cancer [4.0%], advanced adenoma (including sessile serrated polyps greater than or equal to 1cm diameter) [20%] or non- advanced adenoma [31%]; or no colorectal neoplasia [45%]. These estimates are derived from a prospective cross-sectional screening study of 10,000 individuals at average risk for colorectal cancer who were screened with both Cologuard and colonoscopy. (Tanner Kumar al, N Engl J Med 2014;370(14):2737-5559.) Cologuard may produce a false negative or false positive result (no colorectal cancer or precancerous polyp present at colonoscopy follow up). A negative Cologuard test result does not guarantee the absence of CRC or advanced adenoma (pre-cancer). The current Cologuard screening interval is every 3 years. ([place] Cancer Society and U.S. Multi-Society Task Force). Cologuard performance data in a 10,000 patient pivotal study using colonoscopy as the reference method can be accessed at the following location: [email or web address]. Additional description of the Cologuard test process, warnings and precautions can be found at [email or web address] Play. Office Visit (Primary Care T xt/Forms)on 05-31-2022 Follow-up visit Diagnoses/Problems Health Maintenance/Risks Encounter for preventive health examination (V70.0) (Z00.00) Assessed Colon cancer screening (V76.51) (Z12.11) Orders Anxiety Renew: Sertraline HCl - 50 MG Oral Tablet; TAKE 1 AND 1/2 TABLETS DAILY Chronic pain of both knees Renew: Meloxicam 15 MG Oral Tablet; TAKE 1 TABLET Daily prn Colon cancer screening Cologuard Screening; Status:Active; Requested for:[id number]; Provider Impressions Provider Impressions Free Text Note Form: Dispense Cologuard medications refilled today RTC 1 year for wellness Chief Complaint YEARLY WELLNESS History of Present Illness Melinda comes to the office today for a wellness exam. 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 She denies change in bowel habits, anorexia, melena or abdominal pain. Employed@ [employer]-stress better over the last year no surgeries or hospitalizations within the last yr sleeping well. Diet: Trying to avoid diet pops and consuming more plant-based diet. Physical activity: none. Both knees bother her. Takes meloxicam every 3rd day Review of Systems Constitutional: not feeling tired, no fever, not feeling poorly and no chills. Eyes: no blurry vision and no double vision . Wears glasses. ENT: no ear pain, no sore throat and normal hearing. Cardiovascular: no chest pain, no palpitations, no lower extremity edema and no shortness of breath. Respiratory: no dyspnea with exertion and no wheezing. Gastrointestinal: no abdominal pain, no constipation, no diarrhea and no blood in stools. Neurological: no headache, no dizziness and no numbness or tingling. Psychiatric: no sleep disturbances. Active Problems Problems Anxiety (300.00) (F41.9) Benign hypertension (401.1) (I10) Chronic pain of both knees (719.46,338.29) (M25.561,M25.562,G89. 29) Encounter for immunization (V03.89) (Z23) Encounter for wellness examination (V70.0) (Z00.00) Hypothyroid (244.9) (E03.9) Past Medical History Problems History of mammogram (V15.89) (Z92.89) Surgical History Problems History of Ablation History of Cholecystectomy History of Tubal ligation Family History Mother Family history of fibromyalgia (V17.89) (Z82.69) Family history of hyperthyroidism (V18.19) (Z83.49) Family history of myocardial infarction (V17.3) (Z82.49) Father Family history of hypertension (V17.49) (Z82.49) Social History Problems Consumes alcohol occasionally (V49.89) (Z78.9) Never chewed tobacco (V49.89) (Z78.9) No advance directives (V49.89) (Z78.9) Non-smoker (V49.89) (Z78.9) Current Meds Medication NameInstruction Losartan Potassium-HCTZ 50-12.5 MG Oral TabletTAKE 1 TABLET BY MOUTH EVERY DAY Meloxicam 15 MG Oral TabletTake 1 tablet daily Potassium Chloride ER 10 MEQ Oral Capsule Extended ReleaseTAKE 1 CAPSULE Daily Sertraline HCl - 50 MG Oral TabletTAKE 1 AND 1/2 TABLETS DAILY. Allergies Medication Lisinopril TABS Penicillins Vitals Vital Signs Recorded: [id number] 02:57PM Heart Rate: 96 Systolic: 118 Diastolic: 80 Height: 5 ft 6 in Weight: 230 lb 2 oz BMI Calculated: 37.14 kg/m2 BSA Calculated: 2.12 Tobacco Use: b) No PHQ-2 #1. Over the last 2 weeks have you felt down, depressed or hopeless? (If yes, answer PHQ-9 below): No PHQ-2 #2. Over the last 2 weeks have you felt little interest or pleasure in doing things? (If yes, answer PHQ-9 below): No Falls Screening (Age 18+): a) No falls within the last year O2 Saturation: 98 Physical Exam Constitutional - Well developed, well nourished, well hydrated and no acute distress. Vital signs reviewed. Neck - Full range of motion. No significant adenopathy. Thyroid not enlarged and no palpable nodules. Pulmonary - No grunting, flaring or retractions. No rales or wheezing. Good air exchange. Cardiovascular - Regular rate and rhythm. No significant murmur. no significant lower extremity edema. Abdomen - Soft, non-tender, no masses. No hepatomegaly or splenomegaly. normal active bowel sounds. Skin - No significant rash or lesions. Neurologic - Coordination: Normal. no speech abnormalities. facial movement is symmetric. Psychiatric - Judgment and insight: Intact. Mood and affect: Normal. Results/Data Labs from [facility] 01/28/2022: Glucose 97, uric acid 5.3, BUN 16, creatinine 0.74, GFR 99, sodium 139, potassium 4.4, calcium 9.6, phosphorus 3.2, alk phos 75, LDH 162, AST 17, ALT 24, GGT 50, iron 94, total cholesterol 150, triglycerides 133, HDL 50, LDL 77, WBC 9.8, HANDH 14.9?44.3, platelets 279, hemoglobin A1c 5.3%, TSH 0.418. Signatures Electronically signed by : BULMARO Gonzalez; May 31 2022 3:29PM EST (Author) Electronically signed by : BULMARO Gonzalez; May 31 2022 3:30PM EST (Author) Normal [facility] Adult depression screening assessment No [facility] [employer] Phone: Fall risk assessment a) No falls within the last year [facility] [employer] Phone: Tobacco use status CP b) No [facility] Work Phone: Laboratory - Chemistry and C hemistry - challengeon 01-28-2022 Cholesterol [Mass/Vol] 150 mg/dL [facility] Work Phone: Cholesterol in LDL [Mass/Vol] 77 mg/dL [facility] Work Phone: Laboratory - Hematology and Cell countson 01-28-2022 HbA1c (Bld) [Mass fraction] 5.3 % [facility] [employer] Phone: No Panel Informationon 01-28 133 1 [facility] Work Phone: 50 1 [facility] Work Phone: Tobacco Screening.on 021 Fall risk assessment a) No falls within the last year [facility] Work Phone: Tobacco use status CPHS b) No [facility] [employer] Phone: BASIC METABOLIC PANELon - Anion gap [Moles/Vol] 11 mmol/L Normal 10 - 20 [facility] Comment on above: Performed By: #### B MP #### [address] [address] Calcium [Mass/Vol] 9.1 mg/dL Normal 8.6 - 10.3 [facility] Comment on above: Performed By: #### B MP #### [address] [address] Chloride [Moles/Vol] 102 mmol/L Normal 98 - 107 [facility] Comment on above: Performed By: #### B MP #### [address] [address] Creatinine [Mass/Vol] 0.63 mg/dL Normal 0.50 - 1.05 [facility] Comment on above: Performed By: #### B MP #### [address] [address] GFR- AM. >60 Normal >60 [facility] Comment on above: Result Comment: CALC ULATIONS OF ESTIMATED GFR ARE PERFORMED USING THE MDRD STUDY EQUATION FOR THE IDMS-TRACEABLE CREATININE METHODS. CLIN CHEM 2007;53:766-72 Performed By: #### B MP #### [address] [address] GFR-NON AM. >60 Normal >60 [facility] Comment on above: Performed By: #### B MP #### [address] [address] Glucose [Mass/Vol] 85 mg/dL Normal 74 - 99 [facility] Comment on above: Performed By: #### B MP #### [address] [address] HCO3 (Bld) [Moles/Vol] 27 mmol/L Normal 21 - 32 [facility] Comment on above: Performed By: #### B MP #### [address] [address] Potassium [Moles/Vol] 3.4 mmol/L Low 3.5 - 5.3 [facility] Comment on above: Performed By: #### B MP #### [address] [address] Sodium [Moles/Vol] 137 mmol/L Normal 136 - 145 [facility] Comment on above: Performed By: #### B MP #### [address] [place] [address] Urea nitrogen [Mass/Vol] 17 mg/dL Normal 6 - 23 [facility] Comment on above: Performed By: #### B MP #### [address] [place] [address] Laboratory - Chemistry and C hemistry - challengeon 04-30-2021 Anion gap [Moles/Vol] 11 mmol/L 10 - 20 [facility] Work Phone: Calcium [Mass/Vol] 9.1 mg/dL 8.6 - 10.3 [email or web address] Work Phone: Chloride [Moles/Vol] 102 mmol/L 98 - 107 [facility] Work Phone: CO2 [Moles/Vol] 27 mmol/L 21 - 32 [facility] Work Phone: Creatinine [Mass/Vol] 0.63 mg/dL See Below [email or web address] Work Phone: Comment on above: Reference Range: 0.5 0 - 1.05 Glucose [Mass/Vol] 85 mg/dL 74 - 99 [facility] Work Phone: Potassium [Moles/Vol] 3.4 mmol/L below low threshold 3.5 - 5.3 [facility] Work Phone: Sodium [Moles/Vol] 137 mmol/L 136 - 145 [email or web address] Work Phone: Urea nitrogen [Mass/Vol] 17 mg/dL 6 - 23 [facility] Work Phone: No Panel Informationon 04-30 >60 >60 -[facility] Work Phone: Comment on above: CALCULATIONS OF ARLETH MATED GFR ARE PERFORMED USING THE MDRD STUDY EQUATION FOR THE IDMS-TRACEABLE CREATININE METHODS. CLIN CHEM 2007;53:766-72 Tobacco Screening.on 021 Fall risk assessment a) No falls within the last year [facility] Work Phone: Tobacco use status CP b) [facility] Work Phone: CORONAVIRUS 2019 BY PCRon SARS-CoV-2 (COVID-19) RNA LI+probe Ql (Unsp spec) Detected Abnormal Not Detected [facility] Comment on above: Order Comment: POS C OV CALLED TO VERONICA GONZALEZ, 09/17/2020 13:53 Result Comment: . This assay is designed to detect the N, ORF1ab and/or S genes of SARS-CoV-2 via nucleic acid amplification. A Negative (NOT DETECTED) result does not preclude 2019-nCoV infection since the adequacy of sample collection and/or low viral burden may result in presence of viral nucleic acids below the clinical sensitivity of this test method. Negative (NOT DETECTED) result should not be used as the sole basis for treatment or other patient management decisions. Rather negative results should be combined with clinical observations, patient history, and epidemiological information to make patient management decisions. Fact sheet for providers: https://www.fda.gov/media/010263/download Fact sheet for patients: https://www.fda.gov/media/392981/download This test has received FDA Emergency Use Authorization (EUA) and has been verified by [facility] ([facility]). This test is only authorized for the duration of time that circumstances exist to justify the authorization of the emergency use of in vitro diagnostic tests for the detection of SARS-CoV-2 virus and/or diagnosis of COVID-19 infection under section 564(b)(1) of the Act, 21 U.S.C. 360bbb-3(b)(1), unless the authorization is terminated or revoked sooner. [facility] is certified under CLIA-88 as qualified to perform high complexity testing. Testing is performed in the [facility] laboratories located at [address] [place] [address]. POS COV CALLED TO VERONICA GONZALEZ, 09/17/2020 13:53 Performed By: #### C OV19 #### [facility] [address] [place] [address] Covid 19 Resultson 0 SARS-CoV-2 (COVID-19) RNA LI+probe Ql (Unsp spec) Adult POSITIVE COVID-19 Test Talking Points Your local Health Department may be in contact, as they are tracking all POSITIVE patients. Limit your contact with others (HOME ISOLATION). You should be home quarantined unless your local public health department tells you otherwise. If you do not hear from the public health department, you should remain in quarantine at home until it has been at least 10 days since symptoms started AND no fever for at least 24 hours without fever reducing medicine AND your symptoms are improving. If you are a employee, Employee Health will contact you for return to work instructions. As much as possible, stay in a specific room and away from other people in your home. Also, you should use a separate bathroom if possible. People who do not have a need to be in your home should not visit. Try to stay in places in the home that have good airflow. Allow getting fresh air when possible. It is very important to cover their mouth and nose with a tissue when coughing or sneezing. After coughing or sneezing or cleaning up used tissues, immediately wash your hands with soap and water for at least 20 seconds. If soap and water are not available, clean hands with an alcohol-based hand machine welder that contains at least 60% alcohol. Remember to clean your hands often. Avoid sharing personal household items such as dishes, drinking glasses, cups, eating utensils, towels, or bedding with other people or pets in your home. After you use these items, they should be washed with soap and water. Clean all high-touch surfaces (tabletops, doorknobs, bathroom fixtures, toilets, phones, keyboards, tablets, and bedside tables) every day with antibacterial cleaning solutions such as Lysol wipes, bleach, cleansers, etc. Immediately clean any surfaces that may have your blood, poop, or body fluids like tears, drool, urine, sweat, and mucous on them. Use antibacterial cleaning solutions such as Lysol wipes, bleach, cleansers, etc. Wash laundry thoroughly. Immediately remove and wash clothes or bedding that have blood, poop, or body fluids on them. Read and follow directions on labels of laundry detergent and/or clothing items. If possible, mask whenever you leave your room. Recommendations for those caring for someone with COVID-19 Wash your hands frequently with soap and water for 20 seconds or use an alcohol-based hand machine welder that contains at least 60% alcohol. Avoid touching your face Do not permit visitors who do not have an essential need to be in your home. Mask when caring for these individuals. Household members caring for a COVID-19 positive patient should consider self-quarantine for 14 days. If symptoms develop, testing for COVID-19 should be considered.. Revised 7.28.20 Electronic Signatures: [employer] (ADMIN) (Signature pending) Authored Last Updated: 17-Sep-2020 13:46 by [employer] (ADMIN) [facility] CORONAVIRUS 2019 BY Bri Lab Specimen Source Nasal, Nasopharyngeal [facility] Comment on above: Order Comment: POS C OV CALLED TO VERONICA GONZALEZ, 09/17/2020 13:53 Performed By: #### C OV19 #### [facility] [address] [place] [address] DATE OF SYMPTOM ONSET [YYYYMMDD]? [id number] [facility] Comment on above: Order Comment: POS C OV CALLED TO VERONICA GONZALEZ, 09/17/2020 13:53 Performed By: #### C OV19 #### [facility] [address] [place] [address] EMPLOYED IN HEALTHCARE? No [facility] Comment on above: Order Comment: POS C OV CALLED TO VERONICA GONZALEZ, 09/17/2020 13:53 Performed By: #### C OV19 #### [facility] [address] [place] [address] HOSPITALIZED (OR PLANNED TO BE ADMITTED)? No [facility] Comment on above: Order Comment: POS C OV CALLED TO VERONICA GONZALEZ, 09/17/2020 13:53 Performed By: #### C OV19 #### [facility] [address] [place] [address] ICU? No [facility] Comment on above: Order Comment: POS C OV CALLED TO VERONICA GONZALEZ, 09/17/2020 13:53 Performed By: #### C OV19 #### [facility] [address] [place] [address] ? No [facility] Comment on above: Order Comment: POS C OV CALLED TO VERONICA GONZALEZ, 09/17/2020 13:53 Performed By: #### C OV19 #### [facility] [address] [place] [address] RESIDENT IN CONGREGATE CARE SETTING? No [facility] Comment on above: Order Comment: POS C OV CALLED TO VERONICA GONZALEZ, 09/17/2020 13:53 Performed By: #### C OV19 #### [facility] [address] [place] [address] SARS-CoV-2 (COVID-19) Ab IA Ql Yes [facility] Comment on above: Order Comment: POS C OV CALLED TO VERONICA GONZALEZ, 09/17/2020 13:53 Performed By: #### C OV19 #### [facility] [address] [place] [address] SYMPTOMATIC DEFINED BY [facility]? Yes [facility] Comment on above: Order Comment: POS C OV CALLED TO VERONICA GONZALEZ, 09/17/2020 13:53 Performed By: #### C OV19 #### [facility] [address] [place] [address] Provider Note - ED v2on Provider Note - ED v2 Provider Note - ED v2: Chart Review: ED NOTES ED NOTES: HPI: Mrs. Myers is a 49 y/o WF presenting with c/o cough, nasal congestion, temp of 100.1F ongoing since the weekend 09/14/2020. Pt requesting testing for COVID-19. Symptoms have been present for 2-3d. Potential contact by co-worker at [employer] (who may have been exposed at a ). Pt states it is improved only slightly with some OTC agents, but finds it is persistent and nagging. Pt denies any CP, visual drainage, neck pain, ear ache, or drooling, difficulty tolerating ones own saliva. PT denies any N/V/D, visual disturbance, dyspnea, VINCENT, PND, or lip, tongue, cheek, or neck swelling. PMHX: h/o anxiety h/o hypothyroidism PSHX: History of Ablation History of Cholecystectomy History of Tubal ligation SOCIAL: neg TOB neg ETOH neg DRUG employed as finance at [employer] ====Physical Exam==== Vitals: REVIEWED & discussed with pt in room. Constitutional/Genera l: Alert and oriented x3, well appearing. HEAD: AT/NC NOSE: + congestion, inferior turbinate engorged THROAT: no posterior pharynx asymmetry, tonsils are symmetric, pharynx is nonerythematous EARS: normal mastoid exam on palpation MOUTH: no perioral lesions, tongue midline, uvula midline & symmetric SINUSES: NT/symmetric maxillary, frontal, ethmoid sinuses Respiratory: nonlabored respirations, CTA on auscultation of all quadrants, speaking full sentences Cardiovascular: S1/S2 normal, RRR, no murmurs Musculoskeletal: Moves all extremities x4, warm and well perfused Integument: Skin warm and dry, no rashes. Lymphatic: No lymphadenopathy noted. Neurologic: CN II-XII intact grossly Psychiatric: Normal affect. Considered differential: influenza, parainfluenza, rhinovirus, adenovirus, metapneumovirus, coronavirus, COVID-19, postnasal drip, strep pharyngitis, GERD, retropharyngeal abscess, tonsillitis, adenitis, seasonal allergies HISTORY OF PRESENTING ILLNESS MELINDA is a 49 year old Female and was seen by me at 16-Sep-2020 12:40. Triage Information: Most recent Vital Sign Value Date PAST MEDICAL HISTORY ATTESTATION: I have reviewed and confirmed nurse's/medic's notes for patient's medications, allergies, medical history, and surgical history ALLERGIES/INTOLERANCE S: Allergy Allergen: penicillin Type: Drug Reaction: Unknown HEALTH HISTORY: No documented data. OUTPATIENT MEDICATIONS: Home Medications Review Status for Reconciliation: N/A Med Status: N/A No documented data. SIGNIFICANT EVENTS: No documented data. FLIGHT CONTROL SPECIALIST: Is : no Is : no REVIEW OF SYSTEMS CONSTITUTIONAL: Negative for: chills and fever ENMT Nose: Negative for: congestion and discharge Throat/Neck: Negative for: throat pain RESPIRATORY: POSITIVE for: cough GASTROINTESTINAL: Negative for: abdominal pain and diarrhea; MUSCULOSKELETAL: (diffuse) POSITIVE for: joint pain and pain NEUROLOGICAL: POSITIVE for: headache; Negative for: dizziness; RESULTS/VITAL SIGNS VITAL SIGNS: BP 167/124 left arm HR 104 Sat 97% RA RR 14 Temp 98.2 oral F MEDICAL DECISION MAKING/ED COURSE MDM/ED COURSE: I reviewed the COVID-19 algorithm, reviewed the algorithm & symptoms with the patient, and counseled the patient on COVID-19 current recommendations. It was determined the patient's symptoms are consistent with need for testing for COVID-19, using proper PPE, I was able to obtain a nasal swab without incident. Patient was given a note for work, she is encouraged to self quarantine, she is encouraged to take the prescription medications as designed, & he was discharged. I encourage they (he or she) seek higher level of care should symptoms persist/change or exacerbate. At this time his symptoms are mild to moderate, & he does meet criteria to be treated at home while awaiting testing and results. We discussed her blood pressure, encourage he takes a couple readings at home, she voiced understanding agreement with plan, she was ultimately discharged. Discussed Findings with: patient Data Reviewed: vital signs Awaiting: lab results CLINICAL IMPRESSION Diagnosis/Annotation: ED Dx Name:Labile hypertension Code:R09.89 Name:Exposure to COVID-19 virus Code:Z20.828 Name:Sinusitis, acute Code:J01.90 Dispostion: discharged ATTESTATION CRITICAL CARE TIME Is this a critically ill patient: no Electronic Signatures: Baldev Brown (PAC) (Signed 16-Sep-2020 13:27) Authored: ED Notes, HPI, PMH, ROS, Results/Vital Signs, MDM/ED Course, Clinical Impression, Attestation, Chart Review, Scores Last Updated: 16-Sep-2020 13:27 by Baldev Brown (PAC) [facility] Office Visiton 10-05-2016 Protein mass conc Done Invalid Interpretation Code [facility] Tobacco smoking status NHIS Never smoker Invalid Interpretation Code [facility] Vital Signs Date Time Vital Sign Value Performing Clinician Facility 04-23-2025 14:19-0400 Body height 165.[address] Geoff Pepe MD Work Phone: [facility] 04-23-2025 14:19-0400 Body mass index (BMI) [Ratio] 39.1 kg/m2 Dr. Geoff Pepe MD Work Phone: [facility] 04-23-2025 14:19-0400 Body weight 106.[address] Geoff Pepe MD Work Phone: [facility] 04-23-2025 14:19-0400 Diastolic blood pressure 82 mm[Hg] Dr. Geoff Pepe MD Work Phone: [phone] [place] [address] 04-23-2025 14:19-0400 Systolic blood pressure 144 mm[Hg] Dr. Geoff Pepe MD Work Phone: [phone] [place] [address] 12-13-2024 15:17-0500 Body height 162.6 cm Aleshia Wood ROOF TRUSS MACHINE TENDER-PSYCHOMETRIC EXAMINER Work Phone: [facility] 12-13-2024 15:17-0500 Body mass index (BMI) [Ratio] 40.23 kg/m2 Aleshia Wood ROOF TRUSS MACHINE TENDER-PSYCHOMETRIC EXAMINER Work Phone: [facility] 12-13-2024 15:17-0500 Body weight 106.32 kg Aleshia Wood ROOF TRUSS MACHINE TENDER-PSYCHOMETRIC EXAMINER Work Phone: [facility] 12-13-2024 15:17-0500 Diastolic blood pressure 80 mm[Hg] Aleshia Wood ROOF TRUSS MACHINE TENDER-PSYCHOMETRIC EXAMINER Work Phone: [facility] 12-13-2024 15:17-0500 Heart rate 88 /min Aleshia Wood ROOF TRUSS MACHINE TENDER-PSYCHOMETRIC EXAMINER Work Phone: [facility] 12-13-2024 15:17-0500 SaO2% (BldA) [Mass fraction] 96 % Aleshia Wood ROOF TRUSS MACHINE TENDER-PSYCHOMETRIC EXAMINER Work Phone: [facility] 12-13-2024 15:17-0500 Systolic blood pressure 126 mm[Hg] Aleshia Wood ROOF TRUSS MACHINE TENDER-PSYCHOMETRIC EXAMINER Work Phone: [facility] 10-22-2024 14:38-0500 Body mass index (BMI) [Ratio] 38.56 kg/m2 Krislyn Aberegg PA Work Phone: [facility] 10-22-2024 14:38-0500 Body temperature 100.99 [degF] Krislyn Aberegg PA Work Phone: [facility] 10-22-2024 14:38-0500 Body weight 105.1 kg Krislyn Aberegg PA Work Phone: [facility] 10-22-2024 14:38-0500 Diastolic blood pressure 64 mm[Hg] Krislyn Aberegg PA Work Phone: [facility] 10-22-2024 14:38-0500 Heart rate 115 /min Krislyn Aberegg PA Work Phone: [facility] 10-22-2024 14:38-0500 Respiratory rate 20 /min Krislyn Aberegg PA Work Phone: [facility] 10-22-2024 14:38-0500 SaO2% (BldA) [Mass fraction] 94 % Krislyn Aberegg PA Work Phone: [facility] 10-22-2024 14:38-0500 Systolic blood pressure 130 mm[Hg] Krislyn Aberegg PA Work Phone: [facility] 02-08-2024 13:49-0400 Body height 165.[address] Geoff Pepe Work Phone: [facility] 02-08-2024 13:41-0400 Body mass index (BMI) [Ratio] 38.8 kg/m2 Dr. Geoff Pepe Work Phone: [facility] 02-08-2024 13:41-0400 Body weight 105.[address] Geoff Pepe Work Phone: [facility] 02-08-2024 13:41-0400 Diastolic blood pressure 84 mm[Hg] Dr. Geoff Pepe Work Phone: [facility] 02-08-2024 13:41-0400 Systolic blood pressure 126 mm[Hg] Dr. Geoff Pepe Work Phone: [facility] 01-06-2024 12:20-0500 Diastolic blood pressure 69 mm[Hg] Alec Fairchild MD Work Phone: [facility] Comment on above: post nitro/post CCTA 01-06-2024 12:20-0500 Heart rate 67 /min Alec Fairchild MD Work Phone: [facility] Comment on above: post nitro/post CCTA 01-06-2024 12:20-0500 Systolic blood pressure 123 mm[Hg] Alec Fairchild MD Work Phone: [facility] Comment on above: post nitro/post CCTA 01-06-2024 11:32-0500 Body temperature 98.4 [degF] Alec Fairchild MD Work Phone: [facility] 01-06-2024 11:32-0500 SaO2% (BldA) [Mass fraction] 95 % Alec Fairchild MD Work Phone: [facility] 01-06-2024 07:56-0500 Respiratory rate 14 /min Alec Fairchild MD Work Phone: [facility] 01-05-2024 18:18-0500 Body height 165.1 cm Alec Fairchild MD Work Phone: [facility] 01-05-2024 18:18-0500 Body mass index (BMI) [Ratio] 39.07 kg/m2 Alec Fairchild MD Work Phone: [facility] 01-05-2024 18:18-0500 Body weight 106.5 kg Alec Fairchild MD Work Phone: [facility] 11-08-2022 12:48-0500 Body temperature 99.1 [degF] Peggy Barry APRN.CNP Work Phone: [facility] 11-08-2022 12:48-0500 Body weight 103.51 kg Peggy Praisler-Wood ROOF TRUSS MACHINE TENDER.PSYCHOMETRIC EXAMINER Work Phone: [facility] 11-08-2022 12:48-0500 Diastolic blood pressure 84 mm[Hg] Peggy Praisler-Wood ROOF TRUSS MACHINE TENDER.PSYCHOMETRIC EXAMINER Work Phone: [facility] 11-08-2022 12:48-0500 Heart rate 113 /min Peggy Praisler-Wood ROOF TRUSS MACHINE TENDER.PSYCHOMETRIC EXAMINER Work Phone: [facility] 11-08-2022 12:48-0500 Respiratory rate 20 /min Peggy Praisler-Wood ROOF TRUSS MACHINE TENDER.PSYCHOMETRIC EXAMINER Work Phone: [facility] 11-08-2022 12:48-0500 SaO2% (BldA) [Mass fraction] 95 % Peggy Praisler-Wood ROOF TRUSS MACHINE TENDER.PSYCHOMETRIC EXAMINER Work Phone: [facility] 11-08-2022 12:48-0500 Systolic blood pressure 138 mm[Hg] Peggy Praisler-Wood ROOF TRUSS MACHINE TENDER.[facility] Work Phone: [facility] 05-31-2022 14:57-0400 Body height 167.64 cm Aleshia Last [employer] Work Phone: [facility] Work Phone: 05-31-2022 14:57-0400 Body mass index (BMI) [Ratio] 37.14 kg/m2 Aleshia Last [employer] Work Phone: [facility] Work Phone: 05-31-2022 14:57-0400 Body surface area Derived from formula 2.12 m2 Aleshia Last [employer] Work Phone: [facility] Work Phone: 05-31-2022 14:57-0400 Body weight 104.39 kg Aleshia Moyer Work Phone: [facility] Work Phone: 05-31-2022 14:57-0400 Diastolic blood pressure 80 mm[Hg] Aleshia Moyer Work Phone: [facility] Work Phone: 05-31-2022 14:57-0400 Heart rate 96 /min Aleshia Moyer Work Phone: [facility] Work Phone: 05-31-2022 14:57-0400 SaO2% (BldA) [Mass fraction] 98 % Aleshia Moyer Work Phone: [facility] Work Phone: 05-31-2022 14:57-0400 Systolic blood pressure 118 mm[Hg] Aleshia Moyer Work Phone: [facility] Work Phone: 05-28-2021 09:29-0400 Body height 167.64 cm Aleshia Moyer Work Phone: [facility] Work Phone: 05-28-2021 09:29-0400 Body mass index (BMI) [Ratio] 36.22 kg/m2 Aleshia Moyer Work Phone: [facility] Work Phone: 05-28-2021 09:29-0400 Body surface area Derived from formula 2.1 m2 Aleshia Moyer Work Phone: [facility] Work Phone: 05-28-2021 09:29-0400 Body temperature 98 [degF] Aleshia Moyer Work Phone: [facility] Work Phone: 05-28-2021 09:29-0400 Body weight 101.78 kg Aleshia Moyer Work Phone: [facility] Work Phone: 05-28-2021 09:29-0400 Diastolic blood pressure 72 mm[Hg] Aleshia Moyer Work Phone: [facility] Work Phone: 05-28-2021 09:29-0400 Heart rate 86 /min Aleshia Moyer Work Phone: [facility] Work Phone: 05-28-2021 09:29-0400 SaO2% (BldA) [Mass fraction] 98 % Aleshia Moyer Work Phone: [facility] Work Phone: 05-28-2021 09:29-0400 Systolic blood pressure 112 mm[Hg] Aleshia Moyer Work Phone: [facility] Work Phone: 04-23-2021 09:28-0400 Diastolic blood pressure 82 mm[Hg] Aleshia Moyer Work Phone: [facility] Work Phone: 04-23-2021 09:28-0400 Systolic blood pressure 142 mm[Hg] Aleshia Moyer Work Phone: [facility] Work Phone: 04-23-2021 09:04-0400 Body height 167.64 cm Aleshia Moyer Work Phone: [facility] Work Phone: 04-23-2021 09:04-0400 Body mass index (BMI) [Ratio] 36.39 kg/m2 Aleshia Moyer Work Phone: [facility] Work Phone: 04-23-2021 09:04-0400 Body surface area Derived from formula 2.1 m2 Aleshia Moyer Work Phone: [facility] Work Phone: 04-23-2021 09:04-0400 Body temperature 97.7 [degF] Aleshia Moyer Work Phone: [facility] Work Phone: 04-23-2021 09:04-0400 Body weight 102.26 kg Aleshia Moyer Work Phone: [facility] Work Phone: 04-23-2021 09:04-0400 Diastolic blood pressure 80 mm[Hg] Aleshia Moyer Work Phone: [facility] Work Phone: 04-23-2021 09:04-0400 Heart rate 99 /min Aleshia Moyer Work Phone: [facility] Work Phone: 04-23-2021 09:04-0400 SaO2% (BldA) [Mass fraction] 97 % Aleshia Moyer Work Phone: [facility] Work Phone: 04-23-2021 09:04-0400 Systolic blood pressure 140 mm[Hg] Aleshia Moyer Work Phone: [facility] Work Phone: 01-07-2020 15:31-0500 BMI (Body Mass Index) 36.36 kg/m2 Aleshia Moyer [facility] Work Phone: 01-07-2020 15:31-0500 Body weight 102.17 kg Aleshia Moyer [facility] Work Phone: 01-07-2020 15:31-0500 BP Diastolic 78 mm[Hg] Aleshia Moyer [facility] Work Phone: Comment on above: Location: [facility]; 01-07-2020 15:31-0500 BP Systolic 130 mm[Hg] Aleshia Moyer [facility] Work Phone: Comment on above: Location: [facility]; 01-07-2020 15:31-0500 BSA (Body Surface Area) 2.1 m2 Aleshia Moyer [facility] Work Phone: 01-07-2020 15:31-0500 Height 167.64 cm Aleshia Moyer [facility] Work Phone: 01-07-2020 15:31-0500 Pulse (Heart Rate) 100 /min Aleshia Moyer [facility] Work Phone: 01-07-2020 15:31-0500 Pulse Oximetry 96 % Aleshia Moyer [facility] Work Phone: 07-01-2016 14:46-0400 BMI (Body Mass Index) 35.51 kg/m2 Emelia Morgan NP [facility] 07-01-2016 14:46-0400 Height 167.64 cm Emelia Morgan NP [facility] 07-01-2016 14:46-0400 Weight 99.79 kg Emelia Morgan NP [facility] Encounters Encounter Date Encounter Type Care Provider Facility Start: 04-23-2025 End: 04-23-2025 Patient encounter status Emelia Morgan TOOLING MANAGER-C [facility] Start: 04-23-2025 End: 04-23-2025 ambulatory Emelia Morgan TOOLING MANAGER Facility:[facility] Start: 04-23-2025 End: 04-23-2025 Patient encounter procedure Emelia Morgan TOOLING MANAGER-C -[facility] Work Phone: Start: 12-13-2024 End: 12-13-2024 Office outpatient visit 25 minutes [facility] ROOF TRUSS MACHINE TENDER-PSYCHOMETRIC EXAMINER Work Phone: [facility] Comment on above: Screening, lipid (Pr imary Dx); Benign hypertension; Anxiety; Nausea; Hypothyroidism, unspecified type Start: 12-13-2024 End: 12-13-2024 ambulatory [facility] Start: 10-22-2024 End: 10-22-2024 Subsequent hospital [facility] by [facility] Work Phone: Radiology Comment on above: Acute cough [R05.1] Start: 10-22-2024 End: 10-22-2024 ambulatory MAYLIN PEPE Facility:[facility] Start: 10-22-2024 End: 10-22-2024 Office outpatient visit 25 minutes Salo CABELLO Work Phone: [facility] Comment on above: Pneumonia of left palma ng due to infectious organism, unspecified part of lung (Primary Dx); Acute cough; Fever, unspecified fever cause Start: 06-11-2024 End: 06-11-2024 ambulatory [facility] Start: 06-11-2024 End: 06-11-2024 Encounter for general adult medical examination without abnormal findings [facility] Start: 02-08-2024 End: 02-08-[address] Geoff Pepe Work Phone: [facility] Work Phone: Start: 02-08-2024 End: 02-08-[address] Geoff Pepe Work Phone: [facility] Work Phone: Start: 01-05-2024 End: 01-06-2024 ambulatory [facility] Start: 01-05-2024 End: 01-06-2024 Subsequent hospital visit by physician [facility] Start: 01-05-2024 End: 01-05-2024 [facility] Start: 06-06-2023 Encounter for genera l adult medical examination without abnormal findings [facility] Start: 06-06-2023 Patient encounter status Aleshia Parrish ROOF TRUSS MACHINE TENDER-PSYCHOMETRIC EXAMINER Work Phone: [facility] Work Phone: Start: 11-08-2022 End: 11-08-2022 Patient encounter procedure Peggy Barry APRN.PSYCHOMETRIC EXAMINER Work Phone: [facility] Comment on above: Sore throat (Primary Dx) Start: 06-22-2022 Chart Update Aleshia matos Work Phone: [facility] Work Phone: Start: 05-31-2022 Periodic preventive med est patient 40-64yrs Aleshia Moyer Work Phone: [facility] Work Phone: Start: 02-01-2022 AUDIT Aleshia Abdi d Work Phone: [facility] Work Phone: Start: 09-07-2021 AUDIT Aleshia Abdi d Work Phone: [facility] Work Phone: Start: 05-28-2021 Periodic preventive med est patient 40-64yrs Aleshia Moyer Work Phone: [facility] Work Phone: Start: 05-04-2021 AUDIT Aleshia matos Work Phone: [facility] Work Phone: Start: 04-23-2021 Office outpatient vi sit 15 minutes Aleshia Moyer Work Phone: [facility] Work Phone: Start: 12-20-2017 End: 12-20-2017 Ambulatory Aleshia Moyer Facility[facility] Start: 10-18-2017 End: 10-19-2017 Ambulatory Aleshia Moyer Facility:[facility] Patient encounter status Aleshia Moyer Work Phone: [facility] Work Phone: Procedures Date Procedure Procedure Detail Performing Clinician Start: 10-22-2024 Radiologic exam ches t 2 views Salo CABELLO Work Phone: Start: 02-08-2024 End: 02-08-[address] Geoff matos Work Phone: Start: 01-06-2024 TTE w or wo Amarilys dover CNP Work Phone: Start: 01-06-2024 Cta hrt cornry art/b ypass grfts contrst 3d post Andreia Clarke MD Work Phone: Start: 01-06-2024 Basic metabolic pane l calcium total Andreas Mcgregor PSYCHOMETRIC EXAMINER Work Phone: Start: 01-06-2024 Lipid panel Abran Rosado MD Work Phone: Start: 01-06-2024 Lipid 1996 panel - S lacey or Plasma Salo CABELLO Work Phone: Start: 01-06-2024 Thyrotropin [Units/v olume] in Serum or Plasma Aleshia Moyer ROOF TRUSS MACHINE TENDER-PSYCHOMETRIC EXAMINER Work Phone: Start: 01-05-2024 Assay of troponin quantitative Andreas Mcgregor PSYCHOMETRIC EXAMINER Work Phone: Start: 02-01-2023 Microscopic observat ion [Identifier] in Cervix by Cyto stain Aleshia Moyer APRN-PSYCHOMETRIC EXAMINER Work Phone: Start: 11-08-2022 STREP A MOLECULAR (POC) Peggy Barry APRN.PSYCHOMETRIC EXAMINER Work Phone: Start: 04-04-2017 Mammography Peggy Jaramillo APRN.[facility] Work Phone: Cholecystectomy Aleshia matos Destructive procedure Javon Moyer Ligation of fallopian tube V efren Moyer Plan of Treatment Date Care Activity Detail Author Start: 01-06-2029 Lipid panel Lipid Screening [facility] Start: 06-11-2027 Diabetes Screening Diabetes Screenin g [facility] Start: 02-01-2026 Screening for malign ant neoplasm of cervix [facility] Start: 06-15-2025 Screening for malign ant neoplasm of colon [facility] Start: 06-13-2025 End: 06-13-2025 Patient encounter procedure 06/13/2025 2:40 PM EDT Office Visit [place] [address] [id number] Aleshia Moyer APRN-[facility] [address] [address] [facility] Start: 06-12-2025 Yearly Adult Physical Yearly Adult P hysical [facility] Start: 06-11-2025 Diabetes mellitus screening Diabetes Screening [facility] Start: 04-23-2025 MG Breast - bilatera l Screening [facility] Start: 04-23-2025 Screening mammography SCRN ANNALISE M (CAD)W/USAMA BILAT [facility] Start: 02-07-2025 Screening for malign ant neoplasm of breast Mammogram [facility] Start: 01-06-2025 Thyroid stimulating hormone measurement TSH Level [facility] Start: 12-20-2024 End: 12-13-2025 CBC W Auto Differential panel - Blood CBC and Auto Differential Lab Routine Benign hypertension Expected: 12/20/2024 (Approximate), Expires: 12/13/2025 [facility] Work Phone: Comment on above: Expected: 12/20/2024 (Approximate), Expires: 12/13/2025 Start: 12-13-2024 End: 12-13-2025 Comprehensive metabolic 2000 panel - Serum or Plasma Comprehensive Metabolic Panel Lab Routine Benign hypertension Expected: 12/13/2024 (Approximate), Expires: 12/13/2025 [facility] Work Phone: Comment on above: Expected: 12/13/2024 (Approximate), Expires: 12/13/2025 Start: 12-13-2024 End: 12-13-2025 Lipid 1996 panel - Serum or Plasma Lipid Panel Lab Routine Screening, lipid Expected: 12/13/2024 (Approximate), Expires: 12/13/2025 [facility] Service Area Work Phone: Comment on above: Expected: 12/13/2024 (Approximate), Expires: 12/13/2025 Start: 12-13-2024 End: 12-13-2025 Thyrotropin [Units/volume] in Serum or Plasma Thyroid Stimulating Hormone Lab Routine Hypothyroidism, unspecified type Expected: 12/13/2024 (Approximate), Expires: 12/13/2025 [facility] Work Phone: Comment on above: Expected: 12/13/2024 (Approximate), Expires: 12/13/2025 Start: 07-15-2024 Covid-19 Vaccine ( season) Covid-19 Vaccine ( season) [facility] Start: 07-15-2024 Influenza vaccination Influenza Vacc ine (#1) [facility] Start: 06-02-2023 EPV, Provider: Aleshia Moyer, Status: Pen, Time: 1:20 PM EPV, Provider: Aleshia Moyer, Status: Pen, Time: 1:20 PM [email or web address] Work Phone: Start: 2022 Pneumococcal vaccination Pneumococcal Vaccine (1 of 1 - PCV) [facility] Start: 2022 Shingrix Vaccine (1 of 2) Shingrix Vaccine (1 of 2) [facility] Start: 2022 Zoster Vaccines (1 o f 2) Zoster Vaccines (1 of 2) [facility] Start: 07-15-2022 Influenza vaccination INFLUENZA (#1) [facility] Start: 05-31-2022 EPV, Provider: Aleshia Moyer, Status: Pen, Time: 2:40 PM EPV, Provider: Aleshia Moyer, Status: Pen, Time: 2:40 PM [facility] Work Phone: Start: 11-27-2021 COVID-19 VACCINE (3 - Booster for Alcira series) COVID-19 VACCINE (3 - Booster for Alcira series) [facility] Start: 11-14-2021 DEPRESSION ASSESSMENT DEPRESSION ASS ESSMENT [facility] Start: 05-28-2021 PHYSICAL, Provider: Aleshia Moyer, Status: Pen, Time: 9:20 AM PHYSICAL, Provider: Aleshia Moyer, Status: Pen, Time: 9:20 AM [email or web address] Work Phone: Start: 01-24-2019 HPV TESTING HPV TESTING [facility] Start: 01-24-2019 LIPID SCREEN LIPID SCREEN [facility] Start: 01-24-2019 PAP TESTING PAP TESTING [facility] Start: 01-24-2019 Screening for malign ant neoplasm of cervix Cervical Cancer Screening [facility] Start: 04-04-2018 Mammography MAMMOGRAM [facility] Start: 04-04-2018 Screening for malign ant neoplasm of breast Mammogram Screening [facility] Start: 2017 COLOGUARD (FIT-DNA) COLOGUARD (FIT-D NA) [facility] Start: 2017 Colonoscopy COLONOSCOPY [facility] Start: 2017 COLORECTAL CANCER SCREENING COLORECTAL CANCER SCREENING [facility] Start: [address] COLONOGRAPHY [facility] Start: 2017 DIABETES SCREEN DIABETES SCREEN [facility] Start: 2017 FECAL OCCULT BLOOD FECAL OCCULT BLOO D [facility] Start: 2017 Screening for malign ant neoplasm of colon [facility] Start: 2017 SIGMOIDOSCOPY SIGMOIDOSCOPY [facility] Start: 09-21-2017 End: 09-21-2017 Appointment Appointment [facility] Start: 07-01-2016 End: 07-01-2016 Mri any jt lower extrem w/o contrast matrl MRI Joint Lower Extremity [facility] Start: 07-01-2016 End: 07-01-2016 Radiologic exam knee complete 4/more views X-Ray, Knee [facility] Start: 1994 DTaP/Tdap/Td Vaccine s (1 - Tdap) DTaP/Tdap/Td Vaccines (1 - Tdap) [facility] Start: 1993 Screening for malign ant neoplasm of cervix HPV/Cotest [facility] Start: 1991 Hepatitis B Vaccine (1 of 3 - 19+ 3-dose series) Hepatitis B Vaccine (1 of 3 - 19+ 3-dose series) [facility] Start: 1991 Hepatitis B Vaccines (1 of 3 - 19+ 3-dose series) Hepatitis B Vaccines (1 of 3 - 19+ 3-dose series) [facility] Start: 1991 Urine microalbumin profile [facility] Start: 1990 Anxiety Screening Anxiety Screening [facility] Start: 1990 Depression Screening Depression Scre ening [facility] Start: 1990 HEPATITIS [facility]CRE[facility] Start: 1990 Hepatitis C screening Hepatitis C [facility] Start: 1990 HIV SCREENING HIV SCREENING [facility] Start: 1990 HIV screening HIV Screening [facility] Start: 1973 MMR Vaccines (1 of 1 - Standard series) MMR Vaccines (1 of 1 - Standard series) [facility] Start: 1972 HEPATITIS B (1 of 3 - 3-dose series) HEPATITIS B (1 of 3 - 3-dose series) [facility] Start: 1972 HIV screening HIV Screening [facility] Start: 1972 Lipid panel Lipid Panel [facility] Start: 1972 Screening for malign ant neoplasm of colon [facility] Immunizations Immunization Date Immunization Notes Care Provider Fa mathieuty 08-09-2023 influenza, injectabl e, quadrivalent, preservative free Aleshia Wood [employer]ACHINE TENDER-PSYCHOMETRIC EXAMINER Work Phone: [facility] Work Phone: 08-09-2023 influenza virus vaccine, unspecified formulation Salo CABELLO Work Phone: [facility] 10-02-2021 Moderna COVID-19 Vaccine 100 MCG/0.5ML Intramuscular Suspension Aleshia L Parrish Work Phone: [facility] 01-27-2021 Alcira COVID-19 Vaccine 0.5 ML Intramuscular Suspension Aleshia L Parrish Work Phone: [facility] Comment on above: Series: 03-27-2019 hepatitis A vaccine, adult dosage Aleshia L Parrish Work Phone: [facility] Comment on above: Series: 10-02-2018 hepatitis A vaccine, adult dosage Aleshia L Wood Work Phone: [facility] Work Phone: Comment on above: Series: 09-22-2018 hepatitis A vaccine, adult dosage Aleshia L Wood Work Phone: [facility] Payers Date Payer Category Payer Self-pay [id number] 2022 Blue Khalif garcia [facility] Care [facility] [id number] 2017 Unknown 2016 Unknown [id number] 1972 Unknown [id number] 1972 Unknown [id number] 1972 Unknown [id number] 1972 Unknown [id number] Unknown [id number] Unknown [id number] Social History Date Type Detail Facility Assertion Tobacco smoking consumption unknown (finding) [facility] Work Phone: Start: 01-05-2024 End: 12-13-2024 Non-smoker Non-smoker [facility] Start: 11-08-2022 End: 02-08-2024 Tobacco smoking status NHIS Never smoked tobacco [facility] Start: 11-08-2022 End: 06-06-2023 Tobacco use and exposure Smokeless tobacco non-user [facility] Start: 11-08-2022 End: 10-22-2024 Alcohol intake Current drinker of alcohol (finding) [facility] Start: 1970 Sex Assigned At Not on file [facility] Start: 01-05-2024 Alcohol intake Ex-drinker (finding) [facility] Start: 01-05-2024 End: 12-13-2024 [facility] [employer] [facility] Has the [employer] [facility] threatened to shut off services in your home in past 12Mo No [facility] (I/We) worried alessandra er (my/our) food would run out before (I/we) got money to buy more. Never true [facility] In the past 12 month s, has lack of transportation kept you from medical appointments or from getting medications? No [facility] Start: 01-05-2024 Gender identity Identifies as female gender (finding) [facility] Start: 01-05-2024 Sexual orientation Heterosexual (finding) [facility] Start: 02-08-2024 Tobacco smoking status NHIS Unknown if ever smoked [facility] Start: 08-17-2018 None [facility] Start: 08-17-2018 Non-smoker [facility] Start: 1970 Sex Assigned At Female [facility] Start: 12-13-2024 Alcoholic beverage intake [facility] Work Phone: Start: 12-03-2024 End: 12-13-2024 Exposure to SARS-CoV-2 (event) Not sure [facility] Functional Status Date Assessment Result Facility NEGATED: Highlighted row Functional performance Functional status health issues are not documented [facility] Work Phone: Mental Status Date Assessment Result Facility NEGATED: Highlighted row Cognitive function [Interpretation] Cognitive status health issues are not documented Disease [facility] Work Phone: Clinical Notes 01-24-2014 to 12-13-2024 Assessment & Plan Note - BULMARO Vera - 12/13/2024 3:20 PM ESTAssessment & Plan Note - BULMARO Vera - 12/13/2024 3:20 PM ESTPatient InstructionsPatient Instructions Note Date & Type Note Facility 12-13-2024 Evaluation + Plan note Associated Problem(s): Benign hypertension No [facility] blood pressure readings Continue on Hyzaar CK CMP No dizziness/lightheadedness/SOB Orders: Follow Up In Primary Care - Established Comprehensive Metabolic Panel; Future CBC and Auto Differential; Future Follow Up In Primary Care - Established; Future [facility] Work Phone: 12-13-2024 Evaluation + Plan note Associated Problem(s): Anxiety Slightly worse lately mostly related to social happenings in world Taking Zoloft 75mg daily; no chgs to medication regimen @ this time Orders: Follow Up In Primary Care - Established Follow Up In Primary Care - Established; Future [facility] Work Phone: 12-13-2024 Evaluation + Plan note Associated Problem(s): Hypothyroid previously treated with PTU. Monitor TSH yearly. Orders: Thyroid Stimulating Hormone; Future [facility] Work Phone: 12-13-2024 History of Present illness Narrative Subjective Patient ID: Melinda Myers is a 54 y.o. female who presents for Follow-up (6 mo follow up ). Colorectal cancer screening: Completed Cologuard 2021 negative Breast & Cervical cancer screening: Pap 2023 negative through her FLIGHT CONTROL SPECIALIST Had L sided pneumonia in September, no further cough Review of Systems Constitutional: Negative for fatigue and unexpected weight change. Respiratory: Negative for cough. Cardiovascular: Negative for chest pain, palpitations and leg swelling. Gastrointestinal: Positive for nausea. Neurological: Negative for dizziness, tremors, light-headedness and headaches. Objective BP 126/80 Pulse 88 Ht 1.626 m (5' 4) Wt 106 kg (234 lb 6.4 oz) SpO2 96% BMI 40.23 kg/m Physical Exam Vitals reviewed. Constitutional: General: She is not in acute distress. Appearance: She is obese. She is not ill-appearing. Neck: Thyroid: No thyromegaly or thyroid tenderness. Vascular: No carotid bruit. Cardiovascular: Rate and Rhythm: Normal rate and regular rhythm. Heart sounds: Normal heart sounds. No murmur heard. Pulmonary: Effort: Pulmonary effort is normal. Breath sounds: Normal breath sounds. Abdominal: General: Abdomen is protuberant. Bowel sounds are decreased. Palpations: Abdomen is soft. Tenderness: There is no abdominal tenderness. Musculoskeletal: Right lower leg: No edema. Left lower leg: No edema. Skin: General: Skin is warm and dry. Neurological: Mental Status: She is alert. Assessment/Plan Assessment & Plan Benign hypertension No community blood pressure readings Continue on Hyzaar CK CMP No dizziness/lightheadedness/SOB Orders: Follow Up In Primary Care - Established Comprehensive Metabolic Panel; Future CBC and Auto Differential; Future Follow Up In Primary Care - Established; Future Anxiety Slightly worse lately mostly related to social happenings in world Taking Zoloft 75mg daily; no chgs to medication regimen @ this time Orders: Follow Up In Primary Care - Established Follow Up In Primary Care - Established; Future Screening, lipid CK lipid panel Lipid panel from last yr showed a Chol: 145, HDL: 42, LDL: 67, TC 179 Orders: Lipid Panel; Future Nausea uses protonix as needed, occasional nausea in the morning, no emesis, occurs 2-3x/week. Avoids eating late in evening Trial PPI daily x 1 MO to see if sx resolve Discussed avoiding recumbency for 3 hours postprandially, elevation of HOB and avoidance of chocolate, tomato based foods, alcohol, peppermint, caffeinated products, citrus fruits/drinks and onions. Orders: pantoprazole (Protonix) 20 mg EC tablet; Take 1 tablet (20 mg) by mouth once daily in the morning. Take before meals. Do not crush, chew, or split. Hypothyroidism, unspecified type previously treated with PTU. Monitor TSH yearly. Orders: Thyroid Stimulating Hormone; Future documented in this encounter [facility] Work Phone: 12-13-2024 Instructions BULMARO Vera - 12/13/2024 3:20 PM EST Office visit in 6 months Bloodwork complete when you can Recommend pneumonia vaccine Protonix 20mg daily, in morning 30 minutes before breakfast documented in this encounter [facility] Work Phone: 12-13-2024 Miscellaneous Notes Associated Problem(s): Benign hypertension No community blood pressure readings Continue on Hyzaar CK CMP No dizziness/lightheadedness/SOB Orders: Follow Up In Primary Care - Established Comprehensive Metabolic Panel; Future CBC and Auto Differential; Future Follow Up In Primary Care - Established; Future Associated Problem(s): Anxiety Slightly worse lately mostly related to social happenings in world Taking Zoloft 75mg daily; no chgs to medication regimen @ this time Orders: Follow Up In Primary Care - Established Follow Up In Primary Care - Established; Future Associated Problem(s): Hypothyroid previously treated with PTU. Monitor TSH yearly. Orders: Thyroid Stimulating Hormone; Future documented in this encounter [facility] Work Phone: 10-22-2024 History of Present illness Narrative Radiology Service Progress Note PATIENT NAME: Melinda Myers DATE OF SERVICE: October 22, 2024 TIME: 3:03 PM PATIENT IDENTITY VERIFICATION COMPLETED USING TWO (2) IDENTIFIERS: Name and Date of confirmed by patient verbally. FALL SCREENING: Has the patient had 2 falls in the last year or 1 fall with injury or currently using an Ambulatory Assistive Device (Walker, Cane, Wheelchair, Crutches, etc.)? No PATIENT GENDER DATA: Female. status: : No status: NO. PATIENT RELEVANT IMPLANT DATA REVIEWED: Yes PATIENT PRESENTS WITH AN IMPLANTABLE OR ATTACHED SIGNALS COLLECTOR/ANALYST: No RADIOLOGY DEPARTMENT: General X-ray: Exam(s) Completed: Chest X-Ray PERIPHERAL IV DATA: Not applicable SIGNED BY: RT Jennifer(Giuliana) October 22, 2024 3:03 PM documented in this encounter [facility] 10-22-2024 Note HNO ID: [id number] Author: WESTON CONRAD RT(R) Service: ? Author Type: Wire Photo Operator News Type: Progress Notes Filed: 10/22/2024 15:09 Note Text: Radiology Service Progress Note PATIENT NAME: Melinda Myers DATE OF SERVICE: October 22, 2024 TIME: 3:03 PM PATIENT IDENTITY VERIFICATION COMPLETED USING TWO (2) IDENTIFIERS: Name and Date of confirmed by patient verbally. FALL SCREENING: Has the patient had 2 falls in the last year or 1 fall with injury or currently using an Ambulatory Assistive Device (Walker, Cane, Wheelchair, Crutches, etc.)? No PATIENT GENDER DATA: Female. status: : No status: NO. PATIENT RELEVANT IMPLANT DATA REVIEWED: Yes PATIENT PRESENTS WITH AN IMPLANTABLE OR ATTACHED SIGNALS COLLECTOR/ANALYST: No RADIOLOGY DEPARTMENT: General X-ray: Exam(s) Completed: Chest X-Ray PERIPHERAL IV DATA: Not applicable SIGNED BY: RT Jennifer(Giuliana) October 22, 2024 3:03 PM [facility] 10-22-2024 Note HNO ID: [id number] Author: SALO OLIVEROS PA Service: ? Author Type: Physician Bunker Worker Type: Progress Notes Filed: 10/22/2024 15:21 Note Text: This note was created using Innogen[employer]. Subjective Melinda Myers is a 53 year old female. HPI 53-year-old female presents for cough, fever, congestion. Patient states she has had a cough for the past 2 to 3 weeks. She states it is a dry cough. She states she was seen at a telehealth visit about 2-1/2 weeks ago and diagnosed with bronchitis, given Tessalon Perles and albuterol inhaler. This helped slightly, but cough has been persistent. She states that she started getting body aches and chills x 2 days ago. She does have a fever here. She denies any chest pain or shortness of breath. No vomiting or diarrhea. No history of COPD or asthma. She is not a smoker. She denies any sore throat. She did have nasal congestion initially, but that improved. She took Aleve last night with minimal improvement. No other complaint. PAST MEDICAL HISTORY Diagnosis Date Dysthymic disorder Depression (non-psychotic) Goiter, unspecified PAST SURGICAL HISTORY Procedure Laterality Date DILATION AND CURETTAGE DXAND/THER NONOBSTETRIC [id number] Dilation AND curettage INSERTION OF IUD 03/19/2014 IUD REMOVAL 05/2015 KNEE SURGERY HX Left 08/2015 LAPS SURG CHOLECYSTECTOMY W/CHOLANGIOGRAPHY 08-03-13 ALLERGIES Penicillins MEDICATIONS losartan-hydroCHLOROthiazide (HYZAAR) 50-12.5 mg per tablet potassium chloride SR (MICRO-K) 10 mEq CR capsule meloxicam (MOBIC) 15 mg tablet Take 15 mg by mouth once daily. sertraline (ZOLOFT) 50 mg tablet 75 mg. lisinopril (ZESTRIL, PRINIVIL) 10 mg tablet Take 10 mg by mouth once daily. (Patient not taking: Reported on 11/08/2022) albuterol HFA (PROVENTIL HFA, VENTOLIN HFA) 90 mcg/actuation inhaler Inhale 2 Puffs as instructed every 4 hours as needed for Wheezing/Shortness of Breath. (Patient not taking: Reported on 11/08/2022) Levonorgestrel-Ethinyl Estrad (AVIANE) 0.1mg - 20mcg per tablet Take 1 tablet by mouth once daily. (Patient not taking: No sig reported) multivitamin tablet Take 1 tablet by mouth once daily. (Patient not taking: Reported on 11/08/2022) B Complex Vitamins capsule Take 1 capsule by mouth once daily. (Patient not taking: No sig reported) Magnesium 200 mg tab Take by mouth. (Patient not taking: No sig reported) GLUC GAVIRIA/CHONDRO GAVIRIA A/VIT C/MN (GLUCOSAMINE CHONDROITIN SMCONC ORAL) Take by mouth. (Patient not taking: Reported on 11/08/2022) FAMILY HISTORY Problem Relation Age of Onset Heart Mother [place] other (FIBROMYALGIA) Mother Heart Maternal Grandmother [place] other (parkinsons) Maternal Grandfather Heart Paternal Grandmother chf Cancer Paternal Grandfather LUNG CANCER Stroke Maternal Aunt Aneurysm Maternal Aunt Breast Cancer Maternal Aunt Breast Cancer Other MGGM Social History Tobacco Use Smoking status: Never Smokeless tobacco: Never Substance Use Topics Alcohol use: Yes Comment: rarely, not while Drug use: No Review of Systems Constitutional: Positive for chills and fever. HENT: Negative for congestion, ear pain and sore throat. Respiratory: Positive for cough. Negative for shortness of breath. Cardiovascular: Negative for chest pain. Gastrointestinal: Negative for abdominal pain, diarrhea and vomiting. Musculoskeletal: Positive for myalgias. Objective BP 130/64 Pulse 115 Temp (!) 38.3 ?C (101 ?F) Resp 20 Wt 105.1 kg (231 lb 11.3 oz) LMP 03/19/2017 SpO2 94% BMI 38.56 kg/m? Physical Exam Vitals and nursing note reviewed. Constitutional: General: She is not in acute distress. Appearance: Normal appearance. She is not toxic-appearing. HENT: Right Ear: Tympanic membrane and ear canal normal. Left Ear: Tympanic membrane and ear canal normal. Nose: Nose normal. Mouth/Throat: Mouth: Mucous membranes are moist. Pharynx: Oropharynx is clear. Eyes: Conjunctiva/sclera: Conjunctivae normal. Cardiovascular: Rate and Rhythm: Regular rhythm. Tachycardia present. Pulmonary: Effort: Pulmonary effort is normal. Breath sounds: Normal breath sounds. No wheezing, rhonchi or rales. Skin: General: Skin is warm and dry. Neurological: Mental Status: She is alert. Assessment and Plan ASSESSMENT/PLAN: 1. Pneumonia of left lung due to infectious organism, unspecified part of lung - ICD9: 486, ICD10: J18.9 (primary diagnosis) -Chest x-ray reveals hazy and patchy opacities in left lung raising concern for infection or pneumonia. Please clinically correlate. -Suspect pneumonia. Rx for doxycycline -Follow-up with PCP in 4 to 6 weeks to ensure resolution. 2. Acute cough - ICD9: 786.2, ICD10: R05.1 - XR CHEST 2V FRONTAL/LAT -See above 3. Fever, unspecified fever cause - ICD9: 780.60, ICD10: R50.9 - XR CHEST 2V FRONTAL/LAT - see above Diagnosis and treatment plan were discussed and questions were answered to (more content not included)... [facility] 10-22-2024 History of Present illness Narrative This note was created using [employer]. Subjective Melinda Myers is a 53 year old female. HPI 53-year-old female presents for cough, fever, congestion. Patient states she has had a cough for the past 2 to 3 weeks. She states it is a dry cough. She states she was seen at a telehealth visit about 2-1/2 weeks ago and diagnosed with bronchitis, given Tessalon Perles and albuterol inhaler. This helped slightly, but cough has been persistent. She states that she started getting body aches and chills x 2 days ago. She does have a fever here. She denies any chest pain or shortness of breath. No vomiting or diarrhea. No history of COPD or asthma. She is not a smoker. She denies any sore throat. She did have nasal congestion initially, but that improved. She took Aleve last night with minimal improvement. No other complaint. PAST MEDICAL HISTORY Diagnosis Date Dysthymic disorder Depression (non-psychotic) Goiter, unspecified PAST SURGICAL HISTORY Procedure Laterality Date DILATION & CURETTAGE DX&/THER NONOBSTETRIC 2003&2005 Dilation & curettage INSERTION OF IUD 03/19/2014 IUD REMOVAL 05/2015 KNEE SURGERY HX Left 08/2015 LAPS SURG CHOLECYSTECTOMY W/CHOLANGIOGRAPHY 08-03-13 ALLERGIES Penicillins MEDICATIONS losartan-hydroCHLOROthiazide (HYZAAR) 50-12.5 mg per tablet potassium chloride SR (MICRO-K) 10 mEq CR capsule meloxicam (MOBIC) 15 mg tablet Take 15 mg by mouth once daily. sertraline (ZOLOFT) 50 mg tablet 75 mg. lisinopril (ZESTRIL, PRINIVIL) 10 mg tablet Take 10 mg by mouth once daily. (Patient not taking: Reported on 11/08/2022) albuterol HFA (PROVENTIL HFA, VENTOLIN HFA) 90 mcg/actuation inhaler Inhale 2 Puffs as instructed every 4 hours as needed for Wheezing/Shortness of Breath. (Patient not taking: Reported on 11/08/2022) Levonorgestrel-Ethinyl Estrad (AVIANE) 0.1mg - 20mcg per tablet Take 1 tablet by mouth once daily. (Patient not taking: No sig reported) multivitamin tablet Take 1 tablet by mouth once daily. (Patient not taking: Reported on 11/08/2022) B Complex Vitamins capsule Take 1 capsule by mouth once daily. (Patient not taking: No sig reported) Magnesium 200 mg tab Take by mouth. (Patient not taking: No sig reported) GLUC GAVIRIA/CHONDRO GAVIRIA A/VIT C/MN (GLUCOSAMINE CHONDROITIN SMCONC ORAL) Take by mouth. (Patient not taking: Reported on 11/08/2022) FAMILY HISTORY Problem Relation Age of Onset Heart Mother [place] other (FIBROMYALGIA) Mother Heart Maternal Grandmother [place] other (parkinsons) Maternal Grandfather Heart Paternal Grandmother chf Cancer Paternal Grandfather LUNG CANCER Stroke Maternal Aunt Aneurysm Maternal Aunt Breast Cancer Maternal Aunt Breast Cancer Other MGGM Social History Tobacco Use Smoking status: Never Smokeless tobacco: Never Substance Use Topics Alcohol use: Yes Comment: rarely, not while Drug use: No Review of Systems Constitutional: Positive for chills and fever. HENT: Negative for congestion, ear pain and sore throat. Respiratory: Positive for cough. Negative for shortness of breath. Cardiovascular: Negative for chest pain. Gastrointestinal: Negative for abdominal pain, diarrhea and vomiting. Musculoskeletal: Positive for myalgias. Objective BP 130/64 Pulse 115 Temp (!) 38.3 C (101 F) Resp 20 Wt 105.1 kg (231 lb 11.3 oz) LMP 03/19/2017 SpO2 94% BMI 38.56 kg/m Physical Exam Vitals and nursing note reviewed. Constitutional: General: She is not in acute distress. Appearance: Normal appearance. She is not toxic-appearing. HENT: Right Ear: Tympanic membrane and ear canal normal. Left Ear: Tympanic membrane and ear canal normal. Nose: Nose normal. Mouth/Throat: Mouth: Mucous membranes are moist. Pharynx: Oropharynx is clear. Eyes: Conjunctiva/sclera: Conjunctivae normal. Cardiovascular: Rate and Rhythm: Regular rhythm. Tachycardia present. Pulmonary: Effort: Pulmonary effort is normal. Breath sounds: Normal breath sounds. No wheezing, rhonchi or rales. Skin: General: Skin is warm and dry. Neurological: Mental Status: She is alert. Assessment and Plan ASSESSMENT/PLAN: 1. Pneumonia of left lung due to infectious organism, unspecified part of lung - ICD9: 486, ICD10: J18.9 (primary diagnosis) -Chest x-ray reveals hazy and patchy opacities in left lung raising concern for infection or pneumonia. Please clinically correlate. -Suspect pneumonia. Rx for doxycycline -Follow-up with PCP in 4 to 6 weeks to ensure resolution. 2. Acute cough - ICD9: 786.2, ICD10: R05.1 - XR CHEST 2V FRONTAL/LAT -See above 3. Fever, unspecified fever cause - ICD9: 780.60, ICD10: R50.9 - XR CHEST 2V FRONTAL/LAT - see above Diagnosis and treatment plan were discussed and questions were answered to the patient's satisfaction. Pt acknowledged understanding of concepts and follow up plan. Specific signs and symptoms that would indicate the need for higher level of care were discussed in detail warranting prompt ER evaluation. DESTINEY Calzada documented in this encounter [facility] 01-06-2024 Hospital course Narrative [facility] DISCHARGE SUMMARY -- [facility] Melinda Myers Admitted: 01/05/2024 Discharge Date: 01/06/24 PCP Handoff Recommended Outpatient Testing None Results Pending At Discharge None Clinical Summary Melinda Myers is a 53 y.o. female patient of Maylin Pepe MD with history of HTN, GERD presented to [facility] [place] on 01/05/2024 from [place] ED with chest pain. Chest pain EKG sinus rhythm, negative for T wave inversion or ST changes Troponin at [facility] negative x 2 Seen by cardiology. Had CT Coronary Angiography: 1. Total calcium score: zero 2. No evidence of coronary stenosis or plaque by Coronary CT Angiography GERD and esophagitis PRN maalox Start on Protonix HTN Continue losartan Discharge Medications Discharge Medications New Medications Details pantoprazole 40 MG tablet Commonly known as: PROTONIX Start taking on: January 07, 2024 Take 1 (one) tablet (40 mg total) by mouth daily Start: 01/07/24. Quantity: 30 tablet Medications To Continue Details losartan 50 MG tablet Commonly known as: COZAAR Take 1 (one) tablet (50 mg total) by mouth daily . potassium chloride 10 MEQ CR capsule Commonly known as: MICRO-K Take 1 (one) capsule (10 mEq total) by mouth daily . sertraline 50 MG tablet Commonly known as: ZOLOFT Take 1.5 (one and a half) tablets (75 mg total) by mouth nightly . Physician(s) Follow Up: No follow-up provider specified. Condition at Discharge: Stable Disposition: Home I reviewed discharge recommendations with the patient in person. Patient instructions, including activity, were given to the patient/family at discharge. On day of discharge I saw Melinda Myers and spent: > 30 minutes on discharge. Completed by: Alec Fairchild MD on 01/06/24, 3:03 PM documented in this encounter [facility] 01-06-2024 Note Formatting of this n ote might be different from the original. Problem: Actual or potential alteration in health Goal: Absence of healthcare acquired conditions Outcome: Partially Met Goal: Knowledge of Interdisciplinary Plan of Care Outcome: Partially Met Goal: Knowledge of Enviroment Outcome: Partially Met Problem: Cardiac Output - Decreased Goal: Cardiac output within specified parameters Outcome: Partially Met Problem: Pain Goal: Manage acute pain Outcome: Partially Met Goal: Reduced pain sensation Outcome: Partially Met Goal: Achievement of comfort function goal Outcome: Partially Met [facility] 01-06-2024 Miscellaneous Notes Problem: Actual or potential alteration in health Goal: Absence of healthcare acquired conditions Outcome: Partially Met Goal: Knowledge of Interdisciplinary Plan of Care Outcome: Partially Met Goal: Knowledge of Enviroment Outcome: Partially Met Problem: Cardiac Output - Decreased Goal: Cardiac output within specified parameters Outcome: Partially Met Problem: Pain Goal: Manage acute pain Outcome: Partially Met Goal: Reduced pain sensation Outcome: Partially Met Goal: Achievement of comfort function goal Outcome: Partially Met Container of home medications in med factory representative box. Problem: Actual or potential alteration in health Goal: Absence of healthcare acquired conditions Outcome: Partially Met Goal: Knowledge of Interdisciplinary Plan of Care Outcome: Partially Met Goal: Knowledge of Enviroment Outcome: Partially Met Problem: Cardiac Output - Decreased Goal: Cardiac output within specified parameters Outcome: Partially Met Problem: Pain Goal: Manage acute pain Outcome: Partially Met Goal: Reduced pain sensation Outcome: Partially Met Goal: Achievement of comfort function goal Outcome: Partially Met documented in this encounter [facility] 01-06-2024 Consult note Associated Order (s): IP CONSULT TO CARDIOLOGY General Cardiology Inpatient Cardiology Consult Note Heart & Vascular [facility] 01/05/2024 Andreia Clarke MD [address] [facility] [phone] CARDIOLOGY CONSULT NOTE Patient Name: Melinda Myers Admit Date: [id number] MR #: [id number] : 1970 Physicians: Maylin Pepe MD (Family) Kindly asked to evaluate Melinda Myers for chief complaint of Chest pain relieved by nitro, may need stress test . ASSESSMENT and PLAN: 1. Chest pain Atypical chest pain and that it occurred at rest, however is substernal and relieved by nitro, with family history concern for true coronary artery disease, differential in this age group also would consider pulmonary embolism Negative troponins so not acute coronary syndrome EKG nonacute Recommend CT coronary angiogram to assess coronary arteries and also rule out pulmonary embolism Thank you for this interesting clinical case. We will continue to follow along unless otherwise noted. Andreia Clarke MD, [facility] Cardiovascular Medicine [facility] History of Present Illness: This is a 53-year-old female, past medical history of hyperthyroidism who presented with several episodes of substernal squeezing chest pressure described as a bandlike sensation around her chest. Lasted about 20 minutes, was very uncomfortable also associated with some shortness of breath. Non-smoker. Family history father had a myocardial infarction at the age of 67, mother had an infarction as well at the age of 45. States that this is different than her typical acid reflux. Objective History: Past Medical History: Diagnosis Date Hyperthyroidism 02/2002 History reviewed. No pertinent surgical history. Family History Problem Relation Age of Onset Heart attack Mother 40 Heart attack Paternal Uncle 70 Heart attack Maternal Grandmother 70 Smoker Social History Socioeconomic History Marital status: Tobacco Use Smoking status: Never Smokeless tobacco: Never Vaping Use Vaping Use: Never used Substance and Sexual Activity Alcohol use: Not Currently Drug use: Never Sexual activity: Yes Partners: Male Social Determinants of Health Food Insecurity: No Food Insecurity (01/05/2024) Hunger Vital Sign Worried About Running Out of Food in the Last Year: Never true Ran Out of Food in the Last Year: Never true Transportation Needs: No Transportation Needs (01/05/2024) PRAPARE - Transportation Lack of Transportation (Medical): No Lack of Transportation (Non-Medical): No Housing Stability: Low Risk (01/05/2024) Housing Stability Vital Sign Unable to Pay for Housing in the Last Year: No Number of Places Lived in the Last Year: 1 Unstable Housing in the Last Year: No Tobacco & Smokeless: Tobacco Use Smoking status: Never Smokeless tobacco: Never Allergy Information: I have reviewed the patient's allergies. Penicillins Home Medications: No current outpatient medications on file as of 01/06/2024. Inpatient Medications: Current Facility-Administered Medications: acetaminophen (TYLENOL) tablet 650 mg, 650 mg, Oral, Q4H PRN, Andreas Mcgregor CNP aluminum-magnesium hydroxide-simethicone (MAALOX PLUS) 200-200-20 mg/5 mL suspension 30 mL, 30 mL, Oral, Q4H PRN, Andreas Mcgregor CNP atropine injection 1 mg, 1 mg, Intravenous, PRN, Day, Andreia Guzman MD losartan (COZAAR) tablet 50 mg, 50 mg, Oral, Daily, Andreas Mcgregor CNP, 50 mg at 01/05/242044 metoprolol (LOPRESSOR) injection 10 mg, 10 mg, Intravenous, Q10 Min PRN, Day, Andreia Guzman MD metoprolol tartrate (LOPRESSOR) tablet 50-100 mg, 50-100 mg, Oral, Once, Day, Andreia Guzman MD nitroGLYCERIN (NITROSTAT) SL tablet 0.4 mg, 0.4 mg, Sublingual, Q5 Min PRN, Andreas Mcgregor CNP nitroGLYCERIN (NITROSTAT) SL tablet 0.4 mg, 0.4 mg, Sublingual, Once, Day, Adnreia Guzman MD pantoprazole (PROTONIX) EC tablet 40 mg, 40 mg, Oral, Daily, Abran Rosado MD, 40 mg at 01/06/24 0844 perflutren lipid microspheres (DEFINITY) 0.143 mg/mL solution 0-10 mL of mixture, 0-10 mL of mixture, Intravenous, Once in imaging, Andreas Mcgregor CNP sertraline (ZOLOFT) tablet 75 mg, 75 mg, Oral, Nightly, Andreas Mcgregor CNP, 75 mg at 01/05/24 2120 sodium chloride 0.9% (NS), 25 mL/hr, Intravenous, Continuous, Day, Andreia Guzman MD Review of Systems: A 12 system review of systems was performed, pertinent positives and negatives noted in HPI Physical Examination: BP (!) 137/90 Pulse 82 Temp 98.4 F (36.9 C) (Oral) Resp 14 Ht 5' 5 Wt 106.5 kg (234 lb 12.6 oz) SpO2 95% BMI 39.07 kg/m Constitutional: Well-appearing female, no acute distress Neck: No elevated jugular venous distension Cardiovascular: Regular rate and rhythm Pulmonary/Chest: Normal respiratory effort, lung sounds are clear. Extremities: No edema Neurological: AOx3, moving all extremities normally Skin: Skin is warm and dry, normal hair pattern Psychiatric: Normal mood and affect, appropriate conversation Intake/Output last 3 shifts: No intake/output data recorded. Laboratory Data Reviewed: Lab Results Component Value Date GLUCOSE 109 (H) 01/06/2024 CALCIUM 9.2 01/06/2024 NA 138 01/06/2024 K 3.4 (L) 01/06/2024 CL 107 01/06/2024 BUN 14 01/06/2024 CREATININE 0.74 01/06/2024 Results from last 7 days Lab Units 01/06/24 0503 WBC K/mcL 9.23 HGB g/dL 13.9 HCT % 41.4 PLT K/mcL 253 Results from last 7 days Lab Units 01/06/24 0503 TSH mcIU/mL 0.45 No results found for: HGBA1C Lab Results Component Value Date CHOL 145 01/06/2024 LDLCALC 67 01/06/2024 TRIG 179 (H) 01/06/2024 HDL 42 01/06/2024 Lab Results Component Value Date TROPONINI 13 01/05/2024 No results found for: LABPROT, ALBUMIN Imaging: Pertinent studies reviewed and relevant findings noted. Cardiovascular Studies: EKG reviewed, normal sinus rhythm, no evidence of ischemia or infarction (computer read is incorrect) Telemetry: normal sinus rhythm [facility] Work Phone: 01-06-2024 Consult note Associated Order (s): IP CONSULT TO CARDIOLOGY General Cardiology Inpatient Cardiology Consult Note Heart & Vascular [facility] 01/05/2024 Andreia Clarke MD [address] [place] [phone] CARDIOLOGY CONSULT NOTE Patient Name: Melinda Myers Admit Date: [id number] MR #: [id number] : 1970 Physicians: Maylin Pepe MD (Family) Kindly asked to evaluate Melinda Myers for chief complaint of Chest pain relieved by nitro, may need stress test . ASSESSMENT and PLAN: 1. Chest pain Atypical chest pain and that it occurred at rest, however is substernal and relieved by nitro, with family history concern for true coronary artery disease, differential in this age group also would consider pulmonary embolism Negative troponins so not acute coronary syndrome EKG nonacute Recommend CT coronary angiogram to assess coronary arteries and also rule out pulmonary embolism Thank you for this interesting clinical case. We will continue to follow along unless otherwise noted. Andreia Clarke MD, [facility] Cardiovascular Medicine [facility] History of Present Illness: This is a 53-year-old female, past medical history of hyperthyroidism who presented with several episodes of substernal squeezing chest pressure described as a bandlike sensation around her chest. Lasted about 20 minutes, was very uncomfortable also associated with some shortness of breath. Non-smoker. Family history father had a myocardial infarction at the age of 67, mother had an infarction as well at the age of 45. States that this is different than her typical acid reflux. Objective History: Past Medical History: Diagnosis Date Hyperthyroidism 02/2002 History reviewed. No pertinent surgical history. Family History Problem Relation Age of Onset Heart attack Mother 40 Heart attack Paternal Uncle 70 Heart attack Maternal Grandmother 70 Smoker Social History Socioeconomic History Marital status: Tobacco Use Smoking status: Never Smokeless tobacco: Never Vaping Use Vaping Use: Never used Substance and Sexual Activity Alcohol use: Not Currently Drug use: Never Sexual activity: Yes Partners: Male Social Determinants of Health Food Insecurity: No Food Insecurity (01/05/2024) Hunger Vital Sign Worried About Running Out of Food in the Last Year: Never true Ran Out of Food in the Last Year: Never true Transportation Needs: No Transportation Needs (01/05/2024) PRAPARE - Transportation Lack of Transportation (Medical): No Lack of Transportation (Non-Medical): No Housing Stability: Low Risk (01/05/2024) Housing Stability Vital Sign Unable to Pay for Housing in the Last Year: No Number of Places Lived in the Last Year: 1 Unstable Housing in the Last Year: No Tobacco & Smokeless: Tobacco Use Smoking status: Never Smokeless tobacco: Never Allergy Information: I have reviewed the patient's allergies. Penicillins Home Medications: No current outpatient medications on file as of 01/06/2024. Inpatient Medications: Current Facility-Administered Medications: acetaminophen (TYLENOL) tablet 650 mg, 650 mg, Oral, Q4H PRN, Andreas Mcgregor CNP aluminum-magnesium hydroxide-simethicone (MAALOX PLUS) 200-200-20 mg/5 mL suspension 30 mL, 30 mL, Oral, Q4H PRN, Andreas Mcgregor CNP atropine injection 1 mg, 1 mg, Intravenous, PRN, Day, Andreia Guzman MD losartan (COZAAR) tablet 50 mg, 50 mg, Oral, Daily, Andreas Mcgregor CNP, 50 mg at 01/05/242044 metoprolol (LOPRESSOR) injection 10 mg, 10 mg, Intravenous, Q10 Min PRN, Day, Andreia Guzman MD metoprolol tartrate (LOPRESSOR) tablet 50-100 mg, 50-100 mg, Oral, Once, Day, Andreia Guzman MD nitroGLYCERIN (NITROSTAT) SL tablet 0.4 mg, 0.4 mg, Sublingual, Q5 Min PRN, Andreas Mcgregor CNP nitroGLYCERIN (NITROSTAT) SL tablet 0.4 mg, 0.4 mg, Sublingual, Once, Day, Andreia Guzman MD pantoprazole (PROTONIX) EC tablet 40 mg, 40 mg, Oral, Daily, Abran Rosado MD, 40 mg at 01/06/24 0844 perflutren lipid microspheres (DEFINITY) 0.143 mg/mL solution 0-10 mL of mixture, 0-10 mL of mixture, Intravenous, Once in imaging, Andreas Mcgregor CNP sertraline (ZOLOFT) tablet 75 mg, 75 mg, Oral, Nightly, Meche Andreas Carroll CNP, 75 mg at 01/05/240 sodium chloride 0.9% (NS), 25 mL/hr, Intravenous, Continuous, Andreia Clarke MD Review of Systems: A 12 system review of systems was performed, pertinent positives and negatives noted in HPI Physical Examination: BP (!) 137/90 Pulse 82 Temp 98.4 F (36.9 C) (Oral) Resp 14 Ht 5' 5 Wt 106.5 kg (234 lb 12.6 oz) SpO2 95% BMI 39.07 kg/m Constitutional: Well-appearing female, no acute distress Neck: No elevated jugular venous distension Cardiovascular: Regular rate and rhythm Pulmonary/Chest: Normal respiratory effort, lung sounds are clear. Extremities: No edema Neurological: AOx3, moving all extremities normally Skin: Skin is warm and dry, normal hair pattern Psychiatric: Normal mood and affect, appropriate conversation Intake/Output last 3 shifts: No intake/output data recorded. Laboratory Data Reviewed: Lab Results Component Value Date GLUCOSE 109 (H) 01/06/2024 CALCIUM 9.2 01/06/2024 NA 138 01/06/2024 K 3.4 (L) 01/06/2024 CL 107 01/06/2024 BUN 14 01/06/2024 CREATININE 0.74 01/06/2024 Results from last 7 days Lab Units 01/06/24 0503 WBC K/mcL 9.23 HGB g/dL 13.9 HCT % 41.4 PLT K/mcL 253 Results from last 7 days Lab Units 01/06/24 0503 TSH mcIU/mL 0.45 No results found for: HGBA1C Lab Results Component Value Date CHOL 145 01/06/2024 LDLCALC 67 01/06/2024 TRIG 179 (H) 01/06/2024 HDL 42 01/06/2024 Lab Results Component Value Date TROPONINI 13 01/05/2024 No results found for: LABPROT, ALBUMIN Imaging: Pertinent studies reviewed and relevant findings noted. Cardiovascular Studies: EKG reviewed, normal sinus rhythm, no evidence of ischemia or infarction (computer read is incorrect) Telemetry: normal sinus rhythm documented in this encounter [facility] 01-05-2024 History and physical note [facility] HISTORY AND PHYSICAL -- [facility] Patient Name: Melinda Myers : 1970 MR #: [id number] Admit Date: 01/05/2024 Physicians: Maylin Pepe MD (Family); Augie Morgan (Referring) Melinda Myers is a 53 y.o. female patient of Maylin Pepe MD with history of HTN, GERD presented to [facility] on 01/05/2024 from [facility] with chest pain. Chest pain Presented with sharp 7/10 midsternal chest pain radiating to back Patient with family cardiac history (mother and paternal uncle both had MIs) Patient took Tums with with minimal relief Went to [facility] ED, given 1 SL NG with relief of symptoms EKG sinus rhythm, negative for T wave inversion or ST changes Troponin at [facility] negative x 2 Repeat troponin Echo pending Consult cardiology. May require stress test GERD PRN maalox HTN Continue losartan Residence prior to admission: house or apartment Was patient transferred from outlying hospital or ED yes -- care site [facility] Quality Measures DVT Prophylaxis: ambulation only Sánchez Catheter: absent Medication Reconciliation: Verified Admitted with these risk variables:None. Please see assessment and plan for further details. Estimated Date of Discharge less than 2 midnights Code Status Full Code; code status verified on 01/05/2024 with patient (capacity intact) Chief Complaint chest pain History of Present Illness Melinda Myers is a 53 y.o. female patient of Maylin Pepe MD with history of HTN, GERD presented to [facility] on 01/05/2024 from [facility] with chest pain. Pt stated she had sudden, sharp 7/10 chest pain radiating to her back while at work. There is no associated shortness of breath or nausea. She has history of GERD and took TUMS with minimal relief. She was encouraged by her coworkers to go to the ED. On arrival, she was given 1 sublingual nitro with immediate relief of her symptoms. Chest x-ray nonacute, EKG sinus rhythm without T wave inversions or ST changes. Troponins were negative x 2. She was transferred to for further evaluation. On exam patient resting comfortably in bed, denies chest pain at present. She states that her mother had history of coronary artery disease describes having collateral flow. She denies any cardiac history or chest pain in the past. 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 Denies smoking, drinking alcohol, or recreational drug use. Given her family cardiac history and symptoms, will admit under observation and obtain echo. Past Medical History Past Medical History: Diagnosis Date Hyperthyroidism 02/2002 Past Surgical History History reviewed. No pertinent surgical history. Family History Family History Problem Relation Age of Onset Heart attack Mother 40 Heart attack Paternal Uncle 70 Heart attack Maternal Grandmother 70 Smoker Social History Social History Tobacco Use Smoking Status Never Smokeless Tobacco Never Social History Substance and Sexual Activity Alcohol Use Not Currently Social History Substance and Sexual Activity Drug Use Never Allergy Information I have reviewed the patient's allergies. Penicillins Home Medications Home medications were reviewed. Review Of Systems All relevant systems have been reviewed and are negative except as noted in HPI or below Physical Examination BP (!) 155/102 Pulse 88 Temp 98.2 F (36.8 C) (Oral) Resp 14 Ht 5' 5 Wt 106.5 kg (234 lb 12.6 oz) SpO2 95% BMI 39.07 kg/m General Appearance: alert; well appearing; in no acute distress HEENT: Head- normocephalic; Eyes- EOMI, sclera anicteric; Throat- mucous membranes moist Cardiovascular: regular rate and rhythm; normal S1, S2; no murmurs, rubs, clicks or gallops; peripheral edema absent Respiratory: lungs clear to auscultation; without wheezes, rales or rhonchi; on room air Abdomen: soft, non-tender, non-distended Neurological: oriented x 3; normal speech; no focal findings or movement disorder noted Musculoskeletal: no significant deformity or tenderness to palpation Skin: normal coloration Psych: normal mood and affect Associated attestation - Abran Rosado MD - 01/05/2024 9:51 PM EST 53-year-old female with history of GERD who presented to [facility] ED with complaint of midsternal chest pain that started at work and was unrelieved similar to her prior GERD pain. She denies palpitation, radiation or diaphoresis. She took Tums without relief. At the ED biochemical studies were essentially unremarkable, twelve-lead EKG showed NSR with concern for age-indeterminate inferior infarct. Her pain gradually subsided. She will be admitted for further evaluation. She has a strong family history of CAD with her mother having OH at the age of 45 and father with CAD in his 60s. Incidentally she woke up two nights in a row prior to this presentation with sensation of acid reflux and metallic taste. I have reviewed H&P and agree with plan as outlined by Zane Mcgregor CNP. Add Protonix. Obtain fasting lipid profile and TSH, pending 2D echocardiogram in AM. She will probably need nonurgent stress test. If workup is unremarkable consider GI evaluation. [facility] 01-05-2024 History and physical note [facility] HISTORY AND PHYSICAL -- [facility] Patient Name: Melinda Myers : 1970 MR #: [id number] Admit Date: 01/05/2024 Physicians: Maylin Pepe MD (Family); Augie Morgan (Referring) Melinda Myers is a 53 y.o. female patient of Maylin Pepe MD with history of HTN, GERD presented to [facility] on 01/05/2024 from [facility] with chest pain. Chest pain Presented with sharp 7/10 midsternal chest pain radiating to back Patient with family cardiac history (mother and paternal uncle both had MIs) Patient took Tums with with minimal relief Went to [facility] ED, given 1 SL NG with relief of symptoms EKG sinus rhythm, negative for T wave inversion or ST changes Troponin at [facility] negative x 2 Repeat troponin Echo pending Consult cardiology. May require stress test GERD PRN maalox HTN Continue losartan Residence prior to admission: house or apartment Was patient transferred from outlying hospital or ED yes -- care site [facility] Quality Measures DVT Prophylaxis: ambulation only Sánchez Catheter: absent Medication Reconciliation: Verified Admitted with these risk variables:None. Please see assessment and plan for further details. Estimated Date of Discharge less than 2 midnights Code Status Full Code; code status verified on 01/05/2024 with patient (capacity intact) Chief Complaint chest pain History of Present Illness Melinda Myers is a 53 y.o. female patient of Maylin Pepe MD with history of HTN, GERD presented to [facility] on 01/05/2024 from [facility] with chest pain. Pt stated she had sudden, sharp 7/10 chest pain radiating to her back while at work. There is no associated shortness of breath or nausea. She has history of GERD and took TUMS with minimal relief. She was encouraged by her coworkers to go to the ED. On arrival, she was given 1 sublingual nitro with immediate relief of her symptoms. Chest x-ray nonacute, EKG sinus rhythm without T wave inversions or ST changes. Troponins were negative x 2. She was transferred to for further evaluation. On exam patient resting comfortably in bed, denies chest pain at present. She states that her mother had history of coronary artery disease describes having collateral flow. She denies any cardiac history or chest pain in the past. 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 Denies smoking, drinking alcohol, or recreational drug use. Given her family cardiac history and symptoms, will admit under observation and obtain echo. Past Medical History Past Medical History: Diagnosis Date Hyperthyroidism 02/2002 Past Surgical History History reviewed. No pertinent surgical history. Family History Family History Problem Relation Age of Onset Heart attack Mother 40 Heart attack Paternal Uncle 70 Heart attack Maternal Grandmother 70 Smoker Social History Social History Tobacco Use Smoking Status Never Smokeless Tobacco Never Social History Substance and Sexual Activity Alcohol Use Not Currently Social History Substance and Sexual Activity Drug Use Never Allergy Information I have reviewed the patient's allergies. Penicillins Home Medications Home medications were reviewed. Review Of Systems All relevant systems have been reviewed and are negative except as noted in HPI or below Physical Examination BP (!) 155/102 Pulse 88 Temp 98.2 F (36.8 C) (Oral) Resp 14 Ht 5' 5 Wt 106.5 kg (234 lb 12.6 oz) SpO2 95% BMI 39.07 kg/m General Appearance: alert; well appearing; in no acute distress HEENT: Head- normocephalic; Eyes- EOMI, sclera anicteric; Throat- mucous membranes moist Cardiovascular: regular rate and rhythm; normal S1, S2; no murmurs, rubs, clicks or gallops; peripheral edema absent Respiratory: lungs clear to auscultation; without wheezes, rales or rhonchi; on room air Abdomen: soft, non-tender, non-distended Neurological: oriented x 3; normal speech; no focal findings or movement disorder noted Musculoskeletal: no significant deformity or tenderness to palpation Skin: normal coloration Psych: normal mood and affect Associated attestation - Abran Rosado MD - 01/05/2024 9:51 PM EST 53-year-old female with history of GERD who presented to [facility] ED with complaint of midsternal chest pain that started at work and was unrelieved similar to her prior GERD pain. She denies palpitation, radiation or diaphoresis. She took Tums without relief. At the ED biochemical studies were essentially unremarkable, twelve-lead EKG showed NSR with concern for age-indeterminate inferior infarct. Her pain gradually subsided. She will be admitted for further evaluation. She has a strong family history of CAD with her mother having OH at the age of 45 and father with CAD in his 60s. Incidentally she woke up two nights in a row prior to this presentation with sensation of acid reflux and metallic taste. I have reviewed H&P and agree with plan as outlined by Zane Mcgregor CNP. Add Protonix. Obtain fasting lipid profile and TSH, pending 2D echocardiogram in AM. She will probably need nonurgent stress test. If workup is unremarkable consider GI evaluation. documented in this encounter [facility] 01-05-2024 Note Formatting of this n ote might be different from the original. Container of home medications in med factory representative box. [facility] 01-05-2024 Note Formatting of this n ote might be different from the original. Problem: Actual or potential alteration in health Goal: Absence of healthcare acquired conditions Outcome: Partially Met Goal: Knowledge of Interdisciplinary Plan of Care Outcome: Partially Met Goal: Knowledge of Enviroment Outcome: Partially Met Problem: Cardiac Output - Decreased Goal: Cardiac output within specified parameters Outcome: Partially Met Problem: Pain Goal: Manage acute pain Outcome: Partially Met Goal: Reduced pain sensation Outcome: Partially Met Goal: Achievement of comfort function goal Outcome: Partially Met [facility] 11-08-2022 Instructions Peggy Barry APRN.CNP - 11/08/2022 1:18 PM EST ASSESSMENT/PLAN: 1. Sore throat - ICD9: 462, ICD10: J02.9 - suspect viral - Alere Strep Test NEGATIVE, no culture pending - Discussed supportive care treatment with fluids, rest and analgesia. - STREP A MOLECULAR (POC) - Follow-up with your PCP in 3-5 days if symptoms have not improved or sooner if symptoms worsen - Discussed red flags and need for immediate medical evaluation if any occur. - Discussed supportive care treatment with fluids, rest and analgesia. - Discussed expected course of illness Peggy Barry APRN.[facility] SORE THROAT INSTRUCTIONS SORE THROAT OVERVIEW - Sore throat is a common problem during childhood, and is usually the result of a bacterial or viral infection. Although sore throat usually resolves without complications, it sometimes requires treatment with an antibiotic. There are some less common causes of sore throat that are serious or even life-threatening. This topic will discuss the most common causes and treatments of sore throat in children, as well as the warning signs of more serious conditions. SORE THROAT CAUSES - The most likely cause of a child's sore throat depends upon the child's age, the season, and the geographic area. While viruses are the most common cause of sore throat, bacteria are another common cause. Bacteria and viruses are spread from one person to another through hand contact. Hands get contaminated when the sick individual touches their nose or mouth and then touches another person directly (mdnn-iw-xlgs contact) or indirectly (spgr-av-izqxqv, such as doorknob, telephone, toys). It is difficult to determine the cause of sore throat based upon symptoms alone; an examination and laboratory test are recommended in most cases Viruses - There are many viruses that can cause pain and swelling of the throat. The most common include viruses that cause sore throat as part of an upper respiratory infection, such as the common cold. Other viruses that cause sore throat include influenza, adenovirus, and Mary Lou-Davis virus (the cause of mononucleosis). Symptoms - Symptoms that may occur with a viral infection can include a runny nose and congestion, irritation or redness of the eyes, cough, hoarseness, soreness in the roof of the mouth, a skin rash, or diarrhea. In addition, children with viral infections may have a fever and may feel miserable. A high fever does not necessarily mean that the child has a bacterial infection. Group A streptococcus - Group A streptococcus (GAS) is the name of the bacterium that causes strep throat. Although other bacteria can cause a sore throat, GAS is the most common bacterial cause; up to 30 percent of children with a sore throat will have GAS. Strep throat usually occurs during the winter and early spring, and is most common in school-age children and their younger siblings. Symptoms - Symptoms of strep throat in children older than 3 years often develop suddenly and include fever (temperature ?100.4 F or 38 C), headache, abdominal pain, nausea, and vomiting. Other symptoms can include swollen glands in the neck, white patches of pus in the back or sides of the throat, small red spots on the roof of the mouth, and swelling of the uvula. A cough and cold are not commonly seen in children with strep throat. Strep throat is uncommon in children younger than age 2 to 3 years. However, GAS infection can occur in younger children, and may cause a runny nose and congestion that is prolonged, low-grade fever (?101 F or 38.3 C), and tender glands in the neck. Infants younger than 1 year may be fussy and have a decreased appetite and low-grade fever. SORE THROAT TREATMENT - The treatment of sore throat depends upon the cause; strep throat is treated with an antibiotic while viral pharyngitis is treated with rest, pain relievers, and other measures to reduce symptoms. Strep throat - Strep throat is usually treated with an antibiotic, such as penicillin, or an antibiotic similar to penicillin (eg, amoxicillin). Children who are allergic to penicillin will be given an alternate antibiotic. The antibiotic is usually given in pill or liquid form two or three times per day. A one-time injection is also available, and may be recommended if a child is unwilling to take an oral medication. After completing 24 hours of antibiotics, the child is no longer contagious and may return to school. Symptoms usually improve within 1 to 2 days. However, it is important for the child to finish the entire course of treatment (usually 10 days). If a child does not begin to improve or worsens within 3 days, the child should be reevaluated. Throat pain can be treated with a non-prescription pain medication, if needed. (See 'Pain medications' below.) In addition, parents should monitor their child for dehydration, which can develop if the child is not willing to drink or eat due to a sore throat. (See 'Monitor for dehydration' below.) Viral throat pain - Sore throat caused by viral infections usually last 4 to 5 days. During this time, treatments to reduce pain may be helpful but will not help to eliminate the virus. Antibiotics do not improve throat pain caused by a virus and are not recommended. A child with a viral infection is usually allowed to return to school when there has been no fever for 24 hours and the child feels well enough to pay attention. Pain medications - Throat pain can be treated with a mild pain reliever such as acetaminophen (Tylenol ) or a non-steroidal anti-inflammatory agent such as ibuprofen (Motrin ). These medications should be dosed according to weight, not age. Aspirin is not recommended for children <18 years due to the risk of a potentially serious condition known as Angle syndrome. Monitor for dehydration - Some children with a sore throat are reluctant to drink or eat due to pain. Drinking less fluid can lead to dehydration. To reduce the risk of dehydration, parents can offer warm or cold liquids. (See 'Other interventions' below.) Signs and symptoms of mild dehydration include a slightly dry mouth, increased thirst, and decreased urine output (one wet diaper or void in six hours). Signs of moderate or severe dehydration include decreased urine output (less than one wet diaper or void in six hours), lack of tears when crying, dry mouth, and sunken eyes. A child who is moderately or severely dehydrated should be evaluated by a healthcare provider as soon as possible to determine if treatment is needed. Oral rinses- Salt-water gargles are an old stand-by for relief of throat pain. It is not clear if this treatment is effective, but it is unlikely to be harmful. Most recipes suggest 1/4 to 1/2 teaspoon of salt per cup (8 ounces) of warm water. The water should be gargled and then spit out (not swallowed). Children younger than six to eight years are not able to gargle properly. An oral rinse composed of equal parts of diphenhydramine (Benadryl liquid) and Maalox (magnesium hydroxide, aluminum hydroxide, and simethicone) may be helpful for pain caused by a sore mouth or ulcers in the mouth. Children older than six to eight years may swish and spit (not swallow) the mixture. Sprays - Sprays containing topical anesthetics are available to treat sore throat. However, such sprays are no more effective than sucking on hard candy. In addition, a common anesthetic ingredient, benzocaine, can cause allergic reactions. We do not recommend throat sprays for children. Lozenges - A variety of medicated throat lozenges are available to relieve dryness or pain. However, it is not clear that lozenges work any better than hard candy. We do not recommend throat lozenges for children, especially children younger than 3 to 4 years, who can choke. Sucking on hard candy may provide some relief for children older than 3 to 4 years, who are not at risk for choking. Other interventions - Other interventions include sipping warm beverages (eg, honey or lemon tea, chicken soup), cold beverages, or eating cold or frozen desserts (eg, ice cream, popsicles). These treatments are safe for children. Honey should not be given to children younger than 12 months due to the potential risk of botulism poisoning. Alternative therapies - Health food stores, vitamin outlets, and Internet Web sites offer alternative treatments for relief of sore throat pain. We do not recommend these treatments due to the risks of contamination with pesticides/herbicides, inaccurate labeling and dosing information, and a lack of studies showing that these treatments are safe and effective. SORE THROAT PREVENTION - Hand washing is an essential and highly effective way to prevent the spread of infection. Hands should be wet with water and plain soap, and rubbed together for 15 to 30 seconds. Special attention should be paid to the fingernails, between the fingers, and the wrists. Hands should be rinsed thoroughly, and dried with a single use towel. Alcohol-based hand rubs are a good alternative for disinfecting hands if a sink is not available. Hand rubs should be spread over the entire surface of hands, fingers, and wrists until dry, and may be used several times. These rubs can be used repeatedly without skin irritation or loss of effectiveness. Hand rubs are available as a liquid or wipe in small, portable sizes that are easy to carry in a pocket or handbag. When a sink is available, visibly soiled hands should be washed with soap and water. Hands should be washed after coughing, blowing the nose or sneezing. While it is not always possible to limit contact with a person who is sick, avoiding touching the eyes, nose, or mouth after direct contact can help to prevent the spread of infection. In addition, tissues should be used to cover the mouth when sneezing or coughing. These used tissues should be disposed of promptly. Sneezing/coughing into the sleeve of one's clothing (at the inner elbow) is another means of containing sprays of saliva and secretions and has the advantage of not contaminating the hands. WHEN TO SEEK HELP - Parents of a child with throat pain and one or more of the following should contact their healthcare provider immediately: Difficulty swallowing or breathing Excessive drooling in an infant or young child Temperature ?101 F or 38.3 C Swelling of the neck Child is unable or unwilling to drink or eat Voice sounds muffled Child has a stiff neck or difficulty opening the mouth WHERE TO GET MORE INFORMATION - Your child's healthcare provider is the best source of information for questions and concerns related to your child's medical problem. This article will be updated as needed every four months on our web site ([email or web address]). Information below was obtained from Up to date Last literature review version 19.2: March 2011 This topic last updated: July 01, 2010 documented in this encounter [facility] 11-08-2022 History of Present illness Narrative Subjective Sore Throat Associated symptoms include congestion and coughing. Pertinent negatives include no headaches. Melinda Myers is a 51 year old female who presents with a sore throat and cough for the past 5 days. She has had some viral URI symptoms which have been improving but the sore throat has persisted. She has perhaps had an indirect exposure to strep. She has been taking Advil and drinking warm tea. She has not had a fever. Review of Systems Constitutional: Negative for chills and fever. HENT: Positive for congestion and sore throat. Respiratory: Positive for cough. Cardiovascular: Negative. Musculoskeletal: Negative for myalgias. Neurological: Negative for headaches. BP 138/84 Pulse 113 Temp 37.3 C (99.1 F) Resp 20 Wt 103.5 kg (228 lb 3.2 oz) LMP 03/19/2017 SpO2 95% BMI 37.97 kg/m PAST MEDICAL HISTORY Diagnosis Date Dysthymic disorder Depression (non-psychotic) Goiter, unspecified PAST SURGICAL HISTORY Procedure Laterality Date DILATION & CURETTAGE DX&/THER NONOBSTETRIC 2003&2005 Dilation & curettage INSERTION OF IUD 03/19/2014 IUD REMOVAL 05/2015 KNEE SURGERY HX Left 08/2015 LAPS SURG CHOLECYSTECTOMY W/CHOLANGIOGRAPHY 08-03-13 ALLERGIES Penicillins MEDICATIONS losartan-hydroCHLOROthiazide (HYZAAR) 50-12.5 mg per tablet potassium chloride SR (MICRO-K) 10 mEq CR capsule meloxicam (MOBIC) 15 mg tablet Take 15 mg by mouth once daily. sertraline (ZOLOFT) 50 mg tablet 75 mg. lisinopril (ZESTRIL, PRINIVIL) 10 mg tablet Take 10 mg by mouth once daily. (Patient not taking: Reported on 11/08/2022) albuterol HFA (PROVENTIL HFA, VENTOLIN HFA) 90 mcg/actuation inhaler Inhale 2 Puffs as instructed every 4 hours as needed for Wheezing/Shortness of Breath. (Patient not taking: Reported on 11/08/2022) Levonorgestrel-Ethinyl Estrad (AVIANE) 0.1mg - 20mcg per tablet Take 1 tablet by mouth once daily. (Patient not taking: No sig reported) multivitamin tablet Take 1 tablet by mouth once daily. (Patient not taking: Reported on 11/08/2022) B Complex Vitamins capsule Take 1 capsule by mouth once daily. (Patient not taking: No sig reported) Magnesium 200 mg tab Take by mouth. (Patient not taking: No sig reported) GLUC GAVIRIA/CHONDRO GAVIRIA A/VIT C/MN (GLUCOSAMINE CHONDROITIN SMCONC ORAL) Take by mouth. (Patient not taking: Reported on 11/08/2022) FAMILY HISTORY Problem Relation Age of Onset Heart Mother [place] other (FIBROMYALGIA) Mother Heart Maternal Grandmother [place] other (parkinsons) Maternal Grandfather Heart Paternal Grandmother chf Cancer Paternal Grandfather LUNG CANCER Stroke Maternal Aunt Aneurysm Maternal Aunt Breast Cancer Maternal Aunt Breast Cancer Other MGGM Social History Tobacco Use Smoking status: Never Smokeless tobacco: Never Substance Use Topics Alcohol use: Yes Comment: rarely, not while Drug use: No Objective Physical Exam Vitals and nursing note reviewed. Constitutional: Appearance: Normal appearance. HENT: Right Ear: Tympanic membrane, ear canal and external ear normal. Left Ear: Tympanic membrane, ear canal and external ear normal. Nose: Congestion present. Mouth/Throat: Mouth: Mucous membranes are moist. Pharynx: Uvula midline. Posterior oropharyngeal erythema present. No oropharyngeal exudate. Cardiovascular: Rate and Rhythm: Normal rate and regular rhythm. Heart sounds: Normal heart sounds. Pulmonary: Effort: Pulmonary effort is normal. No respiratory distress. Breath sounds: Normal breath sounds. No wheezing or rales. Musculoskeletal: Cervical back: Neck supple. Lymphadenopathy: Cervical: No cervical adenopathy. Skin: General: Skin is warm and dry. Findings: No erythema or rash. Neurological: Mental Status: She is alert. ASSESSMENT/PLAN: 1. Sore throat - ICD9: 462, ICD10: J02.9 - suspect viral - Alere Strep Test NEGATIVE, no culture pending - Discussed supportive care treatment with fluids, rest and analgesia. - STREP A MOLECULAR (POC) - Follow-up with your PCP in 3-5 days if symptoms have not improved or sooner if symptoms worsen - Discussed red flags and need for immediate medical evaluation if any occur. - Discussed supportive care treatment with fluids, rest and analgesia. - Discussed expected course of illness Peggy Barry APRN.[employer] documented in this encounter [facility] 05-28-2020 History of Present illness Narrative Melinda comes to the office today for a wellness appointment.No recent hospitalizations or surgeries within the last year.Non-smoker. Wine 2x/W alcohol usePhysical activity: walking 3x/W; has lost 1 pound in the last mo.Sleeping: well.Received COVID vaccination seriesTdap: due, will get thru local health dept.Breast cancer screening: Mammogram through [facility] in [place] and up to date. Has MMG scheduled for later today. + endometrial ablation last yr.Cervical cancer screening: Through [facility] 2w agoEye examination: yrly. + contact lens wearer. + astigmatism both eyes.[facility] examination: [facility] BP readings: 120/80's. [facility] Work Phone: 01-24-2014 History of Past i llness Narrative Problem Noted Date Resolved Date Menorrhagia 01/24/2014 04/04/2017 Supervision of other normal 05/11/2006 05/13/2006 Supervision of other normal 12/03/2005 12/31/2005 Locked twins 04/17/2004 12/31/2005 documented as of this encounter (statuses as of 11/13/2022) [facility] Diagnosis Sore throat- Primary Acute pharyngitis [facility]* Diagnosis Chest pain- Primary Unspecified chest pain documented in this encounter [facility] note* Diagnosis Onset Date Resolution Status Encounter for routine gynecological examination noneactive [facility] Work Phone: Evaluation note* Diagnosis Pneumonia of left lung due to infectious organism, unspecified part of lung- Primary Acute cough Fever, unspecified fever cause Acute cough Fever, unspecified fever cause [facility]* Diagnosis Acute cough Fever, unspecified fever cause [facility] Diagnosis Hypokalemia- Primary Hypopotassemia Wellness examination Chronic pain of both knees Benign hypertension Essential hypertension, benign Anxiety Anxiety state, unspecified Screening for diabetes mellitus Screening, lipid- Primary Benign hypertension Essential hypertension, benign Anxiety Anxiety state, unspecified Nausea Nausea alone Hypothyroidism, unspecified type documented in this encounter [facility] Work Phone: Evaluation note* Diagnosis Onset Date Resolution Status Admit Date Encounter for routine gynecological examination noneactive April 142024 2:02pm [facility] [employer] Work Phone: History of Present illness Narrative* Melinda comes to the office for a follow-up on hypertension. Was started on lisinopril 10 mg by mouth daily and taking and tolerating medication but has noticed a constant dry hacking cough. * blurred/double vision \{ - \}, lightheadness \{ - \}; * Checking BP @ home \{ checking weekly \} - SBP ranges: 130 DBP Ranges: 90 * IO BP R arm 142/82 [facility] Work Phone: History of Present illness Narrative* Melinda comes to the office today for a wellness exam. * labs reviewed w/ pt today * MMG & PAP thru [place] [facility] * CRC screening: No family history of colorectal cancer. She denies change in bowel habits, anorexia,melena or abdominal pain. * Employed@ [employer] better over the last year * no surgeries or hospitalizations within the last yr * sleeping well. Diet: Trying to avoid diet pops and consuming more plant-based diet. * Physical activity: none. Both knees bother her. Takes meloxicam every 3rd day -[facility] Work Phone: Hospital Discharge instructions* Attachments The following attachments cannot be sent through Care Everywhere. * Chest Pain (Guatemalan) documented in this encounterOhioHealthReason for referral (narrative)No reason for referral information [facility] Work Phone: Summary Purpose Family History Mother Name Dates Details Family history of hyperthyro idism(V18.19, Z83.49) Status:Active Family history of fibromyalg ia(V17.89, Z82.69) Status:Active Family history of myocardial infarction(V17.3, Z82.49) Status:Active Father Name Dates Details Family history of hypertensi on(V17.49, Z82.49) Status:Active Family history of hyperthyro idism(V18.19, Z83.49) Status:Active Family history of fibromyalg ia(V17.89, Z82.69) Status:Active Family history of myocardial infarction(V17.3, Z82.49) Status:Active Unknown Family Member Name Dates Details Family history of hypertensi on: Father(V17.49, Z82.49) Status:Active Family history of hyperthyro idism: Mother, Father(V18.19, Z83.49) Status:Active Family history of fibromyalg ia: Mother, Father(V17.89, Z82.69) Status:Active Family history of myocardial infarction: Mother, Father(V17.3, Z82.49) Status:Active Unknown Family Member Name Dates Details Family history of hypertensi on: Father(V17.49, Z82.49) Status:Active Family history of hyperthyro idism: Mother, Father(V18.19, Z83.49) Status:Active Family history of fibromyalg ia: Mother, Father(V17.89, Z82.69) Status:Active Family history of myocardial infarction: Mother, Father(V17.3, Z82.49) Status:Active Unknown Family Member Name Dates Details Family history of hypertensi on: Father(V17.49, Z82.49) Status:Active Family history of hyperthyro idism: Mother(V18.19, Z83.49) Status:Active Family history of fibromyalg ia: Mother(V17.89, Z82.69) Status:Active Family history of myocardial infarction: Mother(V17.3, Z82.49) Status:Active Unknown Family Member Name Dates Details Family history of hypertensi on: Father(V17.49, Z82.49) Status:Active Family history of hyperthyro idism: Mother(V18.19, Z83.49) Status:Active Family history of fibromyalg ia: Mother(V17.89, Z82.69) Status:Active Family history of myocardial infarction: Mother(V17.3, Z82.49) Status:Active Unknown Family Member Name Dates Details Family history of hypertensi on: Father(V17.49, Z82.49) Status:Active Family history of myocardial infarction: Mother(V17.3, Z82.49) Status:Active Family history of fibromyalg ia: Mother(V17.89, Z82.69) Status:Active Family history of hyperthyro idism: Mother(V18.19, Z83.49) Status:Active Unknown Family Member Name Dates Details Family history of hypertensi on: Father(V17.49, Z82.49) Status:Active Family history of hyperthyro idism: Mother(V18.19, Z83.49) Status:Active Family history of fibromyalg ia: Mother(V17.89, Z82.69) Status:Active Family history of myocardial infarction: Mother(V17.3, Z82.49) Status:Active Unknown Family Member Name Dates Details Family history of hypertensi on: Father(V17.49, Z82.49) Status:Active Family history of hyperthyro idism: Mother(V18.19, Z83.49) Status:Active Family history of fibromyalg ia: Mother(V17.89, Z82.69) Status:Active Family history of myocardial infarction: Mother(V17.3, Z82.49) Status:Active Relationship Condition Age at Onset Recorded Date/[place] mother Myocardial infarction 40 Fibromyalgia Unknown grandmother Myocardial infarction Unknown grandfather Parkinson's disease Unknown grandmother Congestive heart failure Unknown grandfather Malignant neoplasm of lung Unknown aunt Cerebrovascular accident (CVA) Unknown Malignant neoplasm of breast Unknown Aneurysm Unknown grandmother Malignant neoplasm of breast Unknown Advance Directives Latest Code Status on File Code Status Date Activated Date Inactivated Comments Full Code - Unverified 01/05/2024 7:18 PM 01/06/2024 8:4 7 PM Advance Directive Response Recorded Date/ Time Advance Directives No October 1:25pm Living Will No November 10, 2 020 1:25pm Power of Chicken Catcher No November 10, 2020 1:25pm Advance Directive Response Recorded Date/ Time Advance Directives No October 1:25pm Chief Complaint 6 WK HTN CKWELLNESSYEARLY WELLNESS Chief Complaint and Reason for Visit Chief Complaint SCREENING Annual (ENGINEERING DRAFTER) Reason for Visit Encounter for routin e gynecological examination Chief Complaint Admit Date screen for breast cancer April 23, 2025 1:28pm Annual (ENGINEERING DRAFTER) April 23, 2025 2:02 pm Reason for Visit Admit Date Encounter for routine gynecological exam ination April 23, 2025 2:02pm Additional Source Comments INFORMATION SOURCE (unrecogn ized section and content) DATE CREATED AUTHOR 05/08/2018 [facility] DATE CREATED AUTHOR AUTHOR'S ORGANIZ ATION 05/05/2021 [facility] DATE CREATED AUTHOR AUTHOR'S ORGANIZ ATION 06/04/2022 [facility] DATE CREATED AUTHOR AUTHOR'S ORGANIZ ATION 01/13/2024 [facility] DATE CREATED AUTHOR AUTHOR'S ORGANIZ ATION 01/13/2024 [facility] DATE CREATED AUTHOR AUTHOR'S ORGANIZ ATION 10/25/2024 [facility] DATE CREATED AUTHOR AUTHOR'S ORGANIZ ATION 12/29/2024 [facility] DATE CREATED AUTHOR AUTHOR'S ORGANIZ ATION 02/25/2025 [facility] DATE CREATED AUTHOR AUTHOR'S ORGANIZ ATION 04/20/2025 [facility] Source Comments (unrecognize d section and content) In the event this informatio n is protected by the Federal Confidentiality of Alcohol and Drug Abuse Patient Records regulations: The Federal rules restrict any use of the information to criminally investigate or prosecute any alcohol or drug abuse patient.[facility] the event this information is protected by the Federal Confidentiality of Alcohol and Drug Abuse Patient Records regulations: The Federal rules restrict any use of the information to criminally investigate or prosecute any alcohol or drug abuse patient.[facility] the event this information is protected by the Federal Confidentiality of Alcohol and Drug Abuse Patient Records regulations: The Federal rules restrict any use of the information to criminally investigate or prosecute any alcohol or drug abuse patient.[facility] Reason for Visit (unrecogniz ed section and content) Reason Comments Sore Throat Cough x5 days Specialty Diagnoses / Procedures Referred By Neha whitlock Referred To Contact Diagnoses Chest pain Chest pain Referral ID Status Reason Start Date Expiration Date Visits Re quested Visits Authorized [id number] 1 Reason Comments Cough [place], congestion x 2 d ays Reason Comments Follow-up 6 mo follow up Specialty Diagnoses / Procedures Referred By Neha whitlock Referred To Contact Primary Care Diagnoses Benign hypertension Anxiety Procedures Follow Up In Primary Care - Established Aleshia Moyer APRN-CNP Phone: tel: fax: Referral ID Status Reason Start Date Expiration Date V isits Requested Visits Authorized [id number] Authorized 06/11/2024 06/11/2025 1 1 Care Teams (unrecognized sec tion and content) Engineer Technical Staff Relationship Specialty Start Date End Date Maylin Pepe MD [address] [place] [address] PCP - General 01/22/04 Engineer Technical Staff Relationship Specialty Start Date End Date Maylin Pepe MD [address] [place] [id number] PCP - General Family Medicine 01/05/24 Team Status: Active Member Role Status Dates Dr. Geoff Pepe MD Family Provider Active Dr. Geoff Pepe MD Primary Care Provider Active Team Status: Inactive Member Role Status Dates Dr. Geoff Pepe MD Primary Care Provider, Referr ing Provider Active Emelia Morgan TOOLING MANAGER, TOOLING MANAGER-C Attending Provider Active Team Status: Inactive Member Role Status Dates Dr. Geoff Pepe MD Primary Care Provider Active Emelia Morgan TOOLING MANAGER, TOOLING MANAGER-C Attending Provider Active Engineer Technical Staff Relationship Specialty Start Date End Date Maylin Pepe MD [address] [facility] [place], [place] [id number] PCP - General 01/22/04 Engineer Technical Staff Relationship Specialty Start Date End Date Maylin Pepe MD [address] [place] [address] PCP - General 01/22/04 Engineer Technical Staff Relationship Specialty Start Date End Date Aleshia Moyer, ROOF TRUSS MACHINE TENDER-PSYCHOMETRIC EXAMINER [address] [place] [address] PCP - General Family Medicine 12/13/24 Team Status: Active Member Role Status Dates Dr. Geoff Pepe MD Primary Care Provider Active Team Status: Active Member Role Status Dates Dr. Geoff Pepe MD Primary Care Provider Active Start: April 23, 2025 Emelia Morgan TOOLING MANAGER, TOOLING MANAGER-C Attending Provider Active Start: April 23, 2025 Emelia Morgan TOOLING MANAGER, TOOLING MANAGER-C Referring Provider Active Start: April 23, 2025 Team Status: Inactive Member Role Status Dates Dr. Geoff Pepe MD Primary Care Provider Active Start: April 23, 2025 End: April 23, 2025 Dr. Geoff Pepe MD Referring Provider Active Start: April 23, 2025 End: April 23, 2025 Emelia Morgan TOOLING MANAGER, TOOLING MANAGER-C Attending Provider Active Start: April 23, 2025 End: April 23, 2025 Scheduled Active and Recently Administ ered Medications (unrecognized section and content) Medication Order 01/04/2024 01/05/2024 01/06/2024 losartan (COZAAR) tablet 50 mg 50 mg, Oral, Daily, First dose on Tue01/05/24 at 2100 2044 (Given - Provider: Weston Rizzo RN) metoprolol tartrate (LOPRESSOR) tablet 50-100 mg 50-100 mg, Oral, Once, On Tue01/06/24 at 1100, For 1 dose, Pre-Procedure, Evening prior to CCTA exam Hold for HR less than or equal to 59. For HR greater than or equal to 60 beats per minute AND patient IS already on a beta-oksana, give 50mg. For HR greater than or equal to 60 beats per minute AND patient is NOT already on a beta-oksana, give 100mg. 1100 (Not Given - Provider: Ella Sutherland RN - Reason: Contraindicated) metoprolol tartrate (LOPRESSOR) tablet 50-100 mg (COMPLETED) 50-100 mg, Oral, Once, On Tue01/06/24 at 1100, For 1 dose, Pre-Procedure, 1 hour prior to CCTA exam, if HR greater than 60. Hold for HR less than or equal to 59, SEE ADMINISTRATION INSTRUCTIONS for dosage, For 1 Dose Pre-Procedure. For HR greater than 60 beats per minute AND patient IS already on a beta-oksana, give 50mg. For HR greater than 60 beats per minute AND patient is NOT already on a beta-kosana, give 100mg. 1051 (Given - Provid er: Ella Sutherland RN) nitroGLYCERIN (NITROSTAT) SL tablet 0.4 mg (COMPLETED) 0.4 mg, Sublingual, Once, On Tue01/06/24 at 1100, For 1 dose, Pre-Procedure, >>>>>TO BE RELEASED AND GIVEN IN PROCEDURE AREA ONLY<<<<< If SBP greater than 90 Give following the Calcium Scoring Protocol, AND just prior to Coronary CT Angiogram. DO NOT GIVE IF patient is currently taking sildenafil citrate (VIAGRA, REVATIO), tadalafil (CIALIS), or vardenafil (LEVITRA). DO NOT CRUSH OR CHEW. 1211 (Given - Provid er: Zelalem Pinon, TECHNOLOGIST - Comment: Given by Angy Ling RN) pantoprazole (PROTONIX) EC tablet 40 mg 40 mg, Oral, Daily, First dose on Tue01/06/24 at 0900, DO NOT CRUSH OR CHEW. 0844 (Given - Provid er: Ella Sutherland RN) sertraline (ZOLOFT) tablet 75 mg 75 mg, Oral, Nightly, First dose on Veronica 01/05/24 at 2100 2120 (Given - Provider: Weston Rizzo RN) Continuous Medication Order 01/04/2024 01/05/2024 01/06/2024 sodium chloride 0.9% (NS) 25 mL/hr, Intravenous, Continuous, Starting on Tue01/06/24 at 1100, Pre-Procedure 1100 (Not Given - Pr ovider: Ella Sutherland RN - Reason: Transfer to a Procedural area) PRN Medication Order 01/04/2024 01/05/2024 01/06/2024 acetaminophen (TYLENOL) tablet 650 mg 650 mg, Oral, Every 4 hours PRN, fever 100.4 F or greater, Starting on Tue01/05/24 at 1916 aluminum-magnesium hydroxide-simethicone (MAALOX PLUS) 200-200-20 mg/5 mL suspension 30 mL 30 mL, Oral, Every 4 hours PRN, indigestion, heartburn, Starting on Tue01/05/24 at 1916 atropine injection 1 mg 1 mg, Intravenous, As needed, If HR less than 40 or continued symptomatic bradycardia, Starting on Tue01/06/24 at 0932, For 3 doses, Intra-Procedure, Administer over 1 minute. May repeat as needed every 3 minutes (maximum dose of 3 mg). iopamidoL (ISOVUE-370) 370 mg iodine /mL (76 %) injection 98 mL (COMPLETED) 98 mL, Intravenous, Once in imaging, contrast, Starting on Tue01/06/24 at 1201, For 1 dose 1212 (Contrast Admin istered - Provider: Zelalem Pinon, TECHNOLOGIST) metoprolol (LOPRESSOR) injection 10 mg 10 mg, Intravenous, Every 10 min PRN, 1 hour after oral dose for HR greater than 60 beats per minute AND SBP greater than 90 mmHg., Starting on Tue01/06/24 at 1003, For 3 doses, Pre-Procedure, >>>>>TO BE RELEASED AND GIVEN IN PROCEDURE AREA ONLY<<<<< Push over 3 minutes; may repeat dose 2 times. Notify Radiologist/Associate Justice if HR remains greater than 60 beats per minute with maximum metoprolol (Lopressor) dose. nitroGLYCERIN (NITROSTAT) SL tablet 0.4 mg 0.4 mg, Sublingual, Every 5 min PRN, chest pain, Starting on Tue01/05/24 at 1916, For 3 doses, For chest pain unrelieved by Nitroglycerin or recurrent chest pain, CALL PHYSICIAN DO NOT CRUSH OR CHEW. perflutren lipid microspheres (DEFINITY) 0.143 mg/mL solution 0-10 mL of mixture 0-10 mL of mixture, Intravenous, Once in imaging, contrast, IF suboptimal echo, Starting on Tue01/05/24 at 1940, For 48 hours, Prepare syringe by withdrawing 1.3 mL of perflutren (DEFINITY) from the 2ml vial. Further dilute the 1.3 mL of perflutren with Sodium Chloride (NS) 0.9% to total volume of 10 ml. Chart total ML OF MIXTURE given to patient. 1502 (Given - Provid er: Brenda Velasquez RN) sodium chloride (PF) (NS) 0.9 % contrast line flush 10 mL (COMPLETED)(Linked Group 1) 10 mL, Intravenous, Once in imaging, contrast, Per director [employer] (Radiology) for line patency check prior to contrast administration, Starting on Tue01/06/24 at 1201, For 1 dose 1217 (Given - Provid er: Zelalem Pinon TECHNOLOGIST) sodium chloride (PF) (NS) 0.9 % contrast line flush 80 mL (COMPLETED)(Linked Group 1) 80 mL, Intravenous, Once in imaging, contrast, Per director [employer] (Radiology), Starting on Tue01/06/24 at 1201, For 1 dose, 30 mL BEFORE contrast administration 50 mL AFTER contrast administration 1217 (Given - Provid er: Zelalem Pinon TECHNOLOGIST) Linked Groups Order Group 1: sodium chloride (PF) (NS) 0.9 % contrast line flush 10 mL (COMPLETED)Jump to med 10 mL, Intravenous, Once in imaging, contrast, Per director [employer] (Radiology) for line patency check prior to contrast administration, Starting on Tue01/06/24 at 1201, For 1 dose And sodium chloride (PF) (NS) 0.9 % contrast line flush 80 mL (COMPLETED)Jump to med 80 mL, Intravenous, Once in imaging, contrast, Per director [employer] (Radiology), Starting on Tue01/06/24 at 1201, For 1 dose, 30 mL BEFORE contrast administration 50 mL AFTER contrast administration Goals (unrecognized section and content) Goals may be documented in a n alternate sectionGoals may be documented in an alternate section FOR RECORDS PERTAINING TO PATIENTS WHO ARE OR HAVE BEEN ENROLLED IN A CHEMICAL DEPENDENCY/SUBSTANCEABUSE PROGRAM, SOME INFORMATION MAY BE OMITTED. This clinical summary was aggregated from multiple sources. Caution should be exercised in using it in the provision of clinical care. This summary normalizes information from multiple sources, and as a consequence, information in this document may materially change the coding, format and clinical context of patient data. In addition, data may be omitted in some cases. CLINICAL DECISIONS SHOULD BE BASED ON THE PRIMARY CLINICAL RECORDS. [facility] [employer] [facility]. provides no warranty or guarantee of the accuracy or completeness of information in this document.
== END | disposition home or self-care (01) ==
PROVIDERS: PCP Family Medicine; Referring Provider Nurse Practitioner Women's Health; Visit Provider Nurse Practitioner Women's Health
DX: Z12.31 Encounter for screening mammogram for malignant neoplasm of breast (principal)
CPT/HCPCS: 77063; 77067